=== PATIENT | female | born 1950 | race Caucasian/White ===

== ENCOUNTER → 2018-02-04 | Outpatient (CLI) | payer OTHER, MEDICARE ==
[~2018-02-04] MED LIST: DOCU-94 PO; HCTZ; IBUP-1449 PO; MULT-506 PO; NAPR1TAB9 PO; OMEG10007 PO; OPTIRAY 320 IV PRN; TURM500T
--- NOTE | 2018-02-04 13:16 | DIAGNOSTIC IMAGING REPORT ---
CT (CHEST) THORAX WITH CLINICAL HISTORY: 67 years-old Female presenting with ANAL LESION. TECHNIQUE: Multidetector CT imaging of the chest was performed after the administration of intravenous contrast. IV contrast: 120 mL of Optiray 320. A dose lowering technique was used consistent with the principles of ALARA (as low as reasonably achievable). COMPARISON: None. CT DOSE (mGy.cm): The estimated cumulative dose is 1027.85. FINDINGS: Concrete Finisher Apprentice topogram: Unremarkable. On soft tissue windows, nodular infiltration of the lateral inferior left breast, possibly asymmetric parenchyma (series 6 images 176 and 188). Normal thyroid. No axillary, supraclavicular, hilar, or mediastinal lymphadenopathy. Normal aorta. Normal heart size. No pericardial or pleural effusion. Subtle lesion in the medial spleen, possibly hamartoma or hemangioma. On lung windows, minimal dependent changes likely atelectasis. Mosaic attenuation may suggest small airways disease. No other focal nodule or infiltrate. Airways patent. On bone windows, degenerative changes of the spine. IMPRESSION: 1. No evidence of intrathoracic metastatic disease. No acute intrathoracic pathology. Electronically signed by: Herrera Lyle M.D. 02/04/2018 1:15 PM Dictated Date/Time: 02/04/2018 1:10 PM
--- NOTE | 2018-02-04 14:03 | DIAGNOSTIC IMAGING REPORT ---
ABDOMEN AND PELVIS CT WITH IV AND ORAL CONTRAST CT DOSE: 1027.85 mGy.cm HISTORY: Anal lesion. TECHNIQUE: Multiaxial CT images of the abdomen and pelvis were performed following the use of intravenous and oral contrast. A dose lowering technique was utilized adhering to the principles of ALARA. COMPARISON STUDY: None. FINDINGS: Please refer to the dedicated chest CT performed same day for further evaluation of the lung bases. No suspicious lytic or blastic osseous lesions. Focal thickening with soft tissue enhancement at the anus best seen on image 444. This measures 3.1 x 1.8 cm and likely corresponds to the patient's known history of an anal lesion. Mildly enlarged bilateral inguinal lymph nodes. Dominant right inguinal lymph node measures 1.6 cm and dominant left inguinal lymph node measures 1.5 cm. A few colonic diverticula. No evidence for diverticulitis. No bowel wall thickening or obstruction. Normal appendix. The uterus, ovaries, and bladder are unremarkable. No retroperitoneal lymphadenopathy. Small hypodense focus within the left hepatic lobe adjacent to the falciform ligament favors focal fat. No definite hepatic lesions. There are 2 subcentimeter hypodense lesions within the spleen with the largest measuring 5 mm. These are too small to characterize but statistically benign. The adrenal glands, gallbladder, and pancreas are unremarkable. Normal kidneys. No hydronephrosis. IMPRESSION: 1. Focal thickening with soft tissue enhancement at the anus. This likely corresponds the patient's known history of the anal lesion. 2. Mildly enlarged bilateral inguinal lymph nodes. This is nonspecific but metastatic disease would be the diagnosis of exclusion. Ultrasound-guided fine-needle aspiration and/or PET/CT should be considered for further evaluation. 3. Otherwise, no additional abnormalities within the abdomen or pelvis to suggest definitive metastatic disease. Electronically signed by: Carlos Alberto Maddox M.D. 02/04/2018 2:02 PM Dictated Date/Time: 02/04/2018 1:52 PM
== END | disposition home or self-care (01) ==
LOC: C.CTS 11:19
PROVIDERS: ATTEND Colon & Rectal Surgery
DX: K62.9 Disease of anus and rectum, unspecified (principal); R59.0 Localized enlarged lymph nodes

== ENCOUNTER → 2018-02-17 | Outpatient (CLI) | payer OTHER, MEDICARE ==
[~2018-02-17] MED LIST changes: +HYDR12.55 PO; +IBUP200C80 PO; +MELATAB2 PO; -OPTIRAY 320 IV PRN; +PSYL0.5217 PO
--- NOTE | 2018-02-17 10:42 | DIAGNOSTIC IMAGING REPORT ---
PET/CT HISTORY: COLORECTAL CANCER TECHNIQUE: PET/CT was performed from the base of the skull through the pelvis following the intravenous administration of 11.8 mCi of F18-FDG. Non-contrast CT imaging was performed over the same range without breath-hold for attenuation correction of PET images and anatomic correlation, but not for primary interpretation as it is not of standard diagnostic quality. CT DOSE: COMPARISON: Chest abdomen pelvis CT 02/04/2018. FINDINGS: HEAD AND NECK: There is no FDG-avid disease or significant lymphadenopathy in the imaged portions of the head and the neck. CHEST: There is no FDG-avid disease in the chest. There is no axillary, mediastinal, or hilar lymphadenopathy. There is no pleural or pericardial effusion. There is no air-space disease or suspicious lung nodule. ABDOMEN/PELVIS: Below the diaphragm, tracer is distributed physiologically in the gastrointestinal and genitourinary tracts. There is again noted focal thickening at the anus which demonstrates intense FDG uptake with an SUV max of 12. There are also 2 right and a single left mildly enlarged FDG avid lymph nodes. These demonstrate an SUV max of 5. Dominant right inguinal lymph node measures 1.6 x 1.4 cm.. MUSCULOSKELETAL: There is no FDG-avid or destructive bone lesion. IMPRESSION: 1. Focal thickening and intense FDG uptake within the anus. This likely corresponds to the patient's known history of an anal lesion. 2. Mildly enlarged bilateral inguinal lymph nodes also demonstrate FDG uptake and are therefore consistent with metastatic disease. Electronically signed by: Carlos Alberto Maddox M.D. 02/17/2018 10:41 AM Dictated Date/Time: 02/17/2018 10:26 AM
== END | disposition home or self-care (01) ==
LOC: C.PET 07:44
PROVIDERS: ATTEND Physician Assistant Medical
DX: C21.1 Malignant neoplasm of anal canal (principal)

== ENCOUNTER 2018-02-19 05:20 | Day surgery (SDC) | payer OTHER, MEDICARE ==
[2018-02-18 10:27] VITALS: BMI 32.0
[~2018-02-19] VITALS: Ht 147.3 cm; Wt 70.5 kg
[~2018-02-19 05:20] MED LIST changes: -HCTZ; -IBUP-1449 PO; +PATIENT'S HEIGHT AND/OR WEIGHT NEEDED SCH
[2018-02-19 05:42] VITALS: BP 174/85; PULSE 70; TEMP 36.6; O2SAT 96; Ht 147.3 cm; Wt 70.5 kg
[2018-02-19] MEDS ORDERED: LACTATED RINGER'S 1000ML 1,000 ML IV SCH (06:00)
[2018-02-19] MEDS ORDERED: CEFAZOLIN 2000MG IV PUSH 15 ML IV SCH (06:00)
[2018-02-19] MEDS ORDERED: FENTANYL CITRATE INJ 50 MCG/1 ML 2 ML VIAL IV PRN (06:30)
[2018-02-19] MEDS ORDERED: EpHEDrine SULFATE INJ 50 MG/ML AMP IV PRN (06:30)
[2018-02-19] MEDS ORDERED: PROMETHAZINE HCL INJ 12.5 MG in SODIUM CHLORIDE 0.9% 50ML 50 ML IV PRN (06:30)
[2018-02-19] MEDS ORDERED: ONDANSETRON INJ 2 MG/ML 2 ML VIAL IV PRN ×2 (06:30→08:00)
[2018-02-19] MEDS ORDERED: PHENYLEPHRINE 100MCG/ML 5ML SYR IV PRN (06:30)
[2018-02-19] MEDS ORDERED: ATROPINE SULFATE 0.1 MG/ML 5ML SYR IV PRN (06:30)
[2018-02-19] MEDS ORDERED: HEPARIN SOD (PORCINE) 5000 UNIT/ML 1 ML VIAL ONE (06:37)
[2018-02-19] MEDS ORDERED: BUPIVACAINE 0.5 % 5 MG/1 ML PF 10ML VIAL ONE (06:38)
[2018-02-19] MEDS ORDERED: LIDOCAINE HCL 1% 20 ML VIAL ONE (06:38)
[2018-02-19] MEDS ORDERED: LIDOCAINE/EPINEPHRINE 1% 20 ML VIAL ONE (06:43)
[2018-02-19] MEDS ORDERED: SCOPOLAMINE 1.5 MG TDSY TD ONE (06:49)
--- NOTE | 2018-02-19 06:55 | History & Physical Bridge Note ---
H&P Re-Evaluation Bridge Note: I have examined the patient, reviewed the History & Physical and in the interval since the performance of the History & Physical I have noted the following changes of clinical significance: No changes noted
[2018-02-19] MEDS ORDERED: MIDAZOLAM HCL 1 MG/ML 2ML VIAL ONE ×2 (07:09→07:13)
[2018-02-19] MEDS ORDERED: FENTANYL CITRATE INJ 50 MCG/1 ML 2 ML VIAL ONE (07:12)
[2018-02-19] MEDS ORDERED: PROPOFOL IV EMULSION 10 MG/ML 20 ML VIAL ONE (07:17)
[2018-02-19] MEDS ORDERED: DEXAMETHASONE SOD INJ 4 MG/ML VIAL ONE (07:27)
[2018-02-19] MEDS ORDERED: KETOROLAC TROMETHAMINE 30 MG/ML VIAL ONE (07:28)
[2018-02-19] MEDS ORDERED: ONDANSETRON INJ 2 MG/ML 2 ML VIAL ONE (07:28)
[2018-02-19] MEDS ORDERED: SODIUM CHLORIDE 0.9% 1000ML 1,000 ML IV SCH (07:59)
--- NOTE | 2018-02-19 07:59 | [facility] Post Operative Brief Note ---
Immediate Operative Summary Operative Date Feb 19, 2018. Pre-Operative Diagnosis Anal Cancer Post-Operative Diagnosis Anal Cancer Procedure(s) Performed Insertion of Mediport with Fluoroscopy Surgeon Dr Macias Car Sealer Surgeon(s) none Estimated Blood Loss 4CC Findings Consistent with Post-Op Diagnosis Specimens None per surgeon Drains None Anesthesia Type MAC Complication(s) none Disposition Accompanied Pt To Recover: no Disposition: Recovery Room / PACU
[2018-02-19] MEDS ORDERED: MoRPHine SULFATE 4 MG/ML 1 ML CARP\\VIAL IV PRN (08:00)
[2018-02-19] MEDS ORDERED: MoRPHine SULFATE 2 MG/ML CARP IV PRN (08:00)
[2018-02-19] MEDS ORDERED: KETOROLAC TROMETHAMINE 30 MG/ML VIAL IV. PRN (08:00)
[2018-02-19] MEDS ORDERED: OXYCODONE/ACETAMINOPHEN 5-325 TAB PO PRN ×2 (08:00)
--- NOTE | 2018-02-19 08:06 | Discharge Instructions ---
Discharge Instructions Date of Service Feb 19, 2018. Admission Reason for Admission: Anal Cancer Discharge Discharge Diagnosis / Problem: anal cancer Discharge Goals Goal(s): Therapeutic intervention Activity Recommendations Activity Limitations: as noted below Lifting Limitations: gradually increase as tolerated Exercise/Sports Limitations: gradually increase as tolerated Shower/Bathe: tomorrow (do not soak or scrub wound for 2 weeks) Driving or Machine Use: resume 1 day after discharge . Instructions / Follow-Up Instructions / Follow-Up follow up as schedule in general surgery clinic. call with questions or concerns. Current Hospital Diet Patient's current hospital diet: Discharge Diet Recommended Diet: Regular Diet Procedures Procedures Performed: Insertion of Mediport with Fluoroscopy Pending Studies Studies pending at discharge: no Medical Emergencies . Who to Call and When: Medical Emergencies: If at any time you feel your situation is an emergency, please call 911 immediately. . Non-Emergent Contact Non-Emergency issues call your: Surgeon Call Non-Emergent contact if: temperature is above 101.5, wound has increased drainage, wound has increased redness, you have any medication questions . "Provider Documentation" section prepared by Malik Macias. . [place] Drug Monitoring Program Search Results: patient reviewed within database, no issues identified
--- NOTE | 2018-02-19 08:08 | [facility] Operative Report ---
Operative Report Operative Date Feb 19, 2018. Pre-Operative Diagnosis Anal Cancer Post-Operative Diagnosis Same Procedure(s) Performed Left internal jugular port placement using real-time ultrasound guidance and fluoroscopy Surgeon Dr Macias Associate Professor Of Kinesiology Surgeon(s) none Estimated Blood Loss 4CC Findings Left internal jugular vein accessed using real-time ultrasound guidance. Port placed using fluoroscopy. Draws and flushes easily at conclusion of case. Specimens None per surgeon Drains None Anesthesia MAC/local Complication(s) None Disposition Recovery Room / PACU Indications 67-year-old female with recent diagnosis of anal cancer requiring long-term IV access for chemotherapy. Plan for port placement. The risks of the procedure were discussed, all questions were answered, and the patient agreed to proceed with surgery as planned. Description of Procedure The patient was properly identified, consented, and taken to the operating room where she was placed in the supine position with both arms tucked and a shoulder roll placed vertically. Monitored anesthesia care was induced. SCDs and a safety belt were placed. Preoperative antibiotics were administered. The patient's chest and neck was prepped and draped in the standard sterile fashion. Surgical timeout was performed and all parties were in agreement that this was the correct patient and procedure to be performed and we continued as planned. The patient was placed in Trendelenburg position. Local anesthetic was injected along the skin incision. Using real-time ultrasound guidance the left internal jugular vein was accessed using the access needle. The wire was placed and the needle was removed. Fluoroscopy confirmed placement into the internal jugular vein extending into the superior vena cava. A transverse skin incision was made in the left chest and a pocket was created for the port. A subcutaneous tunnel was created and the catheter was brought from the neck incision into the chest incision. The dilator and peel-away sheath were inserted over the wire. The catheter was then inserted through the peel-away sheath and fluoroscopy confirmed placement into the superior vena cava. The catheter was cut and attached to the port. The port was secured into place with 3-0 Prolene sutures. A final x-ray revealed good placement of the port. The wound was irrigated and hemostasis was confirmed. The skin was closed with interrupted 3-0 Vicryl deep dermal sutures, followed by 4-0 Monocryl running subcuticular suture. Dermabond was placed over the wound. The port was accessed and chari blood easily and flushed easily. It was flushed with heparinized saline. The patient taken to the PACU where she recovered without apparent incident. All sponge, instrument and needle counts were correct at the conclusion of the procedure. The patient tolerated the procedure well. I attest to the content of the Intraoperative Record and any orders documented therein. Any exceptions are noted below.
--- NOTE | 2018-02-19 08:09 | [facility] Operative Report ---
Operative Report Operative Date Feb 19, 2018. Pre-Operative Diagnosis Anal Cancer Surgeon Dr Macias Findings Left internal jugular vein was accessed using real-time ultrasound guidance which was interpreted by the surgeon. Fluoroscopy was used and interpreted by the surgeon for placement of the port. A total of 26 seconds of fluoroscopy time was utilized. I attest to the content of the Intraoperative Record and any orders documented therein. Any exceptions are noted below.
--- NOTE | 2018-02-19 08:28 | DIAGNOSTIC IMAGING REPORT ---
CHEST ONE VIEW PORTABLE HISTORY: 67 years-old Female s/p port placement status post placement of a left internal jugular Oiyeen-g-Ucqi catheter. COMPARISON: PET CT 02/17/2018 TECHNIQUE: Portable AP view of the chest FINDINGS: Cardiac silhouette is enlarged. Mild right hemidiaphragm elevation. No pneumothorax, pleural effusion or overt pulmonary edema. Status post placement of a left internal jugular Fvcvxo-x-Kulm catheter with distal tip terminating in the region of the mid SVC. Mild convex right curvature about the midthoracic spine. Degenerative changes of the shoulders and spine. IMPRESSION: 1. Status post placement of a left internal jugular Dfbkfg-b-Hion catheter with distal tip terminating in the expected region of the mid SVC. No postprocedural pneumothorax. 2. Cardiomegaly. The above report was generated using voice recognition software. It may contain grammatical, syntax or spelling errors. Electronically signed by: Duane Partida M.D. 02/19/2018 8:27 AM Dictated Date/Time: 02/19/2018 8:22 AM
[2018-02-19 08:35] VITALS: BP 144/78; PULSE 58; TEMP 36.6; O2SAT 96
--- NOTE | 2018-02-19 08:54 | Anesthesiology Progress Note ---
Anesthesia Post Op Note Date & Time Feb 19, 2018 at 08:54 Vital Signs Pain Intensity: 0 Vital Signs Past 12 Hours Date Time Temp Pulse Resp B/P (MAP) Pulse Ox O2 Delivery O2 Flow Rate FiO2 02/19/18 08:35 36.6 58 18 144/78 96 Room Air 02/19/18 08:20 57 16 134/81 98 Room Air 02/19/18 08:10 54 16 125/78 95 Room Air 02/19/18 08:02 36.0 61 16 132/89 95 Room Air 02/19/18 05:42 36.6 70 18 174/85 (114) 96 Room Air Notes Mental Status: alert / awake / arousable, participated in evaluation Pt Amnestic to Procedure: Yes Nausea / Vomiting: adequately controlled Pain: adequately controlled Airway Patency, RR, SpO2: stable & adequate BP & HR: stable & adequate Hydration State: stable & adequate Anesthetic Complications: no major complications apparent
[2018-02-19 08:55] VITALS: BP 153/90; PULSE 59; TEMP 36.6; O2SAT 98
== END 2018-02-19 09:10 | disposition home or self-care (01) ==
LOC: C.ACU 05:20
PROVIDERS: ATTEND Surgery
DX: C21.0 Malignant neoplasm of anus, unspecified (principal); I10 Essential (primary) hypertension; M19.90 Unspecified osteoarthritis, unspecified site

== ENCOUNTER 2019-10-19 07:38 | Inpatient (IN) ==
--- NOTE | 2019-09-30 13:45 | PAT Medication Instructions ---
Medication Instructions Date of Service September 30, 2019 Home Medications lisinopril 10 mg tablet 15 mg PO QDL multivitamin 1 tab PO QDL DO NOT take the morning of surgery lisinopril 10 mg tablet 15 mg PO QDL multivitamin 1 tab PO QDL Other Notes If you have any questions please call us at [phone] or [phone] or [phone] or [phone]
--- NOTE | 2019-10-04 08:55 | Anesthesiology Consultation ---
Date of Service October 04, 2019 Assessment & Plan (1) Encounter for pre-operative examination: Chart Review Chart Review: Acceptable Risk for Surgery and Patient seen in Pre Admission Testing Teaching & Discussion Pre-Anesthesia Teaching/Discussion Notes: Instructed NPO after midnight before surgery,except medications with 15 cc of water. Medication instructions provided according to the PAT guidelines. History Surgery Operation Date: 10/19/19 14:45 Proposed Procedures p L3-L4 Transforaminal Lumbar Interbody Fusion, Spinal Cord Monitoring - Garrett Gaming DO Height/Weight Height: 4 ft 10 in Weight: 74.3 kg Allergies Allergy/AdvReac Type Severity Reaction Status Date / Time No Known Allergies Allergy Verified 09/28/19 15:35 Medications Home Medications Medication Instructions Recorded Confirmed Last Taken lisinopril 10 mg tablet 15 mg PO QDL tab 11/30/18 09/28/19 Unknown multivitamin 1 tab PO QDL 09/28/19 09/28/19 Unknown Past Medical History Medical History Arthritis of spine Bowel habit changes URGENCY - R/T TO CHEMO AND RADIATION Dry mouth RESIDUAL EFFECT FROM CHEMO AND RADIATION History of anal cancer HAD CHEMO AND RADIATION - 2018 TREATED [facility]; Hypertension Numbness and tingling of right leg R/T BACK ISSUES Ruptured lumbar disc Exercise / Class Metabolic Activity III < 4 Walking/Shop/Light housework (no SOB or chest pain with flat surface- uses wheeled walker ) Past Family History Family History Mother Family history of diabetes mellitus Sister Family history of diabetes mellitus Past Surgical History Surgical History History of open reduction and internal fixation (ORIF) procedure RIGHT ELBOW History of vascular access device MEDIPORT IN PLACE Hx of knee surgery X4; ONE SURGERY FOR PATELLA REMOVAL Past Anesthesia History No Hx of Anesthesia Complications and No Family Hx of Anesthesia Complications History of PONV No Hx of PONV and No Hx of Motion Sickness Social History Smoking Status: Never smoker Do You Dip or Chew Tobacco: No Hx Alcohol Use: Yes Alcohol type: wine alcohol intake frequency: a few times a month Hx Substance Use: No Review of Systems Patient denies chest pain, shortness of breath, dyspnea on exertion, reflux, cough, wheezing, palpitations. No hx of seizures, stroke, MD, apnea/snoring. No hx of blood clots or blood transfusions Physical Exam Vital Signs VITALS BP 125/86 P 80 TEMP 98.1 SP02 96% RESP 16 Constitutional + obese; no acute distress ENMT Mouth: no TMJ clicking Thyromental Distance: < 3.5 Finger Breadths (3.0) Mallampati Class: III Caps and crowns - molars Neck + thick neck (mild ); neck extension not limited Respiratory normal respiratory effort; no respiratory distress Auscultation: lungs clear to auscultation bilaterally; no wheezes Cardiovascular Rate/Rhythm: regular rate and regular rhythm Heart Sounds: no murmur Vessels: no carotid bruit Extremities: no edema Musculoskeletal Spine: no pain with cervical ROM (mild cracking ) Neurologic moves all extremities Psychiatric Orientation: alert Testing Laboratory Results 10/04/19 09:03 10/04/19 09:03 PT 10.5 Seconds (9.0-12.0) 10/04/19 09:03 INR 1.0 (0.9-1.1) 10/04/19 09:03 APTT 26.4 Seconds (21.0-31.0) 10/04/19 09:03 Urine Color Yellow 10/04/19 09:03 Urine Appearance Clear (Clear) 10/04/19 09:03 Urine pH 5.0 (4.5-7.5) 10/04/19 09:03 Ur Specific [place] 1.024 (1.000-1.030) 10/04/19 09:03 Urine Protein Trace (Negative) H 10/04/19 09:03 Urine Glucose (UA) Negative (Negative) 10/04/19 09:03 Urine Ketones Negative (Negative) 10/04/19 09:03 Urine Nitrite Negative (Negative) 10/04/19 09:03 Ur Leukocyte Esterase 1+ (Negative) H 10/04/19 09:03 Urine WBC (Auto) 10-30 /hpf (0-5) H 10/04/19 09:03 Urine RBC (Auto) 0-4 /hpf (0-4) 10/04/19 09:03 U Hyaline Cast (Auto) 1-5 /lpf (0-5) 10/04/19 09:03 U Epithel Cells (Auto) 10-20 /lpf (0-5) H 10/04/19 09:03 Urine Bacteria (Auto) Negative (Negative) 10/04/19 09:03 Blood Type O Positive 10/04/19 09:03 Antibody Screen NEGATIVE 10/04/19 09:03 Chronic mild leukopenia- stable Electrocardiogram Date: 10/04/19 Findings: + NSR @ (84) Other Testing Chest CT 07/04/19= No enlarged axillary, mediastinal or hilar lymph nodes are present. A left internal jugular Hznrbw-i-Izjp is in place. The heart is mildly enlarged. There is no pericardial effusion. No supraclavicular lymphadenopathy is identified. There is no central pulmonary embolus. No pneumothorax or pleural effusion is noted. 4mm nodules to bilateral lower lobes unchanged since 2018- likely benign.
[2019-10-04 09:57] LABS: Basophils # (auto) 0.02 K/uL (0-0.2); Basophils % (auto) 0.5 %; Eosinophils # (auto) 0.12 K/uL (0-0.5); Eosinophils % (auto) 2.9 %; Hematocrit (blood only) 38.4 % (37-47); Hemoglobin 12.6 g/dL (12.0-16.0); Immature Granulocytes # (auto) 0.01 K/uL (0.00-0.02); Immature Granulocytes % (auto) 0.2 %; Lymphocytes % (auto) 19.1 %; Mean Corpuscular Hemoglobin 32.5 pg (25-34); Mean Corpuscular Hgb Conc 32.8 g/dL (32-36); Mean Platelet Volume 9.7 fL (7.4-10.4); Monocytes # (auto) 0.44 K/uL (0.11-0.59); Monocytes % (auto) 10.5 %; Neutrophils % (auto) 66.8 %; Platelet Count 347 K/uL (130-400); RDW Coefficient of Variation 13.5 % (11.5-14.5); RDW Standard Deviation 48.7 fL (36.4-46.3); Red Blood Count 3.88 M/uL (4.2-5.4); White Blood Count 4.19 K/uL (4.8-10.8)
[2019-10-04 10:04] LABS: BUN Creatinine Ratio 16.9 (10-20); Est GFR (African American) 54.2; Est GFR (Non-African American) 46.7; Potassium 4.8 mmol/L (3.5-5.1)
[2019-10-04 10:14] LABS: Partial Thromboplastin Ratio 0.9; Partial Thromboplastin Time 26.4 Seconds (21.0-31.0); Prothrombin Time 10.5 Seconds (9.0-12.0)
[2019-10-04 10:32] LABS: Appearance Urine Clear (Clear); Bacteria Urine Automated Negative (Negative); Bilirubin Urine Negative (Negative); Blood Urine Negative (Negative); Color Urine Yellow; Glucose Urine UA Negative (Negative); Ketones Urine Negative (Negative); Leukocyte Esterase Urine 1+ (Negative); Nitrite Urine Negative (Negative); Protein Urine Trace (Negative); RBC Urine Automated 0-4 /hpf (0-4); Specific Gravity Urine 1.024 (1.000-1.030); Urobilinogen Urine Negative (Negative)
--- NOTE | 2019-10-04 22:38 | Electrocardiogram Report ---
Test Reason : Blood Pressure : / mmHG Vent. Rate : 084 BPM Atrial Rate : 084 BPM P-R Int : 120 ms QRS Dur : 076 ms QT Int : 388 ms P-R-T Axes : 023 021 060 degrees QTc Int : 458 ms Normal sinus rhythm Normal ECG No previous ECGs available Confirmed by Chidi Aviles ([id number]) on 10/04/2019 10:38:26 PM Referred By: Garrett Gaming Confirmed By:Chidi Aviles
--- NOTE | 2019-10-18 12:20 | History & Physical Report ---
Date of Service October 18, 2019 Assessment & Plan (1) Lumbar disc herniation with radiculopathy: This time the patient has progressive neuro deficit and leg weakness. Subsequently recommending urgent decompression and fusion so she does not have permanent nerve damage, leg weakness and dependence on assistive device to ambulate. This would require a lumbar decompression and fusion at L3-4 in order to adequately decompress the exiting L 3 nerve root on the right it would require complete facetectomy and subsequent stabilization with a fusion. Present on Admission?: Yes History of Present Illness Chief Complaint: Back and right leg pain and weakness. Primary Care Provider: WILLIAM Wynne This is a 68-year-old female that began experiencing symptoms in the fall of last year. She was originally managed with oral prednisone and had undergone a series of epidural injections. Unfortunately her symptoms returned in December and have been progressive since. Described as involving the right buttocks and down the right anterior thigh to the knee. She did have one transforaminal injection was provided 1 to 2 days of relief. She is only comfortable sitting has to for change positions frequently. Standing and walking has become severely limited secondary to pain and progressive weakness involving the right quadricep. She does use a walker secondary to leg weakness and falls. Allergies Allergy/AdvReac Type Severity Reaction Status Date / Time No Known Allergies Allergy Verified 09/28/19 15:35 Home Medications Home Medications Medication Instructions Recorded Confirmed Type lisinopril 10 mg tablet 15 mg PO QDL tab 11/30/18 09/28/19 History multivitamin 1 tab PO QDL 09/28/19 09/28/19 History Past Med/Surg History Medical History Arthritis of spine Bowel habit changes URGENCY - R/T TO CHEMO AND RADIATION Dry mouth RESIDUAL EFFECT FROM CHEMO AND RADIATION History of anal cancer HAD CHEMO AND RADIATION - 2018 TREATED [facility]; Hypertension Numbness and tingling of right leg R/T BACK ISSUES Ruptured lumbar disc Surgical History History of open reduction and internal fixation (ORIF) procedure RIGHT ELBOW History of vascular access device MEDIPORT IN PLACE Hx of knee surgery X4; ONE SURGERY FOR PATELLA REMOVAL Family History Mother Family history of diabetes mellitus Sister Family history of diabetes mellitus Social History Preferred Language: [place] Communication Ability: Effective Beliefs That Will Affect Care: None Current Living Situation: Alone Feels Safe at Home: Yes Safety Concerns: Feels Safe At This Time Smoking Status: Never smoker Do You Dip or Chew Tobacco: No ; Second Hand Exposure: No ; Hx Alcohol Use: Yes Alcohol type: wine Hx Substance Use: No Physical Exam Physical Exam: Patient is in obvious distress. She walks with assistance and an antalgic gait. She is unable to heel and toe walk. She exhibits 3+/5 right hip flexor and right quadricep. Plantar flexion dorsiflexion are intact to bench exam bilaterally. She has marked sensory deficits to the right lower extremity compared to the left. Results & Data Diagnostic Findings MRI of lumbar spine performed at [facility] dated 08/22/19 demonstrates significant multilevel spondylosis with evidence of disc herniation and spinal stenosis at L5 3 4. There is severe right-sided neuroforaminal stenosis with marked encroachment of the exiting L3 nerve root. In fact it is unable to be visualized secondary to the disc herniation. There is also compression of the traversing 4 root on the right.
[~2019-10-19 07:38] MED LIST changes: +ACETAMINOPHEN 500 MG TAB PO SCH; +CEFAZOLIN 1000MG 1,000 MG/7.5 ML SYR IV SCH; +CeleBREX 200 MG CAP PO SCH; -DOCU-94 PO; +GABAPENTIN 300 MG CAP PO SCH; -HYDR12.55 PO; -IBUP200C80 PO; +LR 15ML/HR IV SCH; -MELATAB2 PO; -MULT-506 PO; -NAPR1TAB9 PO; -OMEG10007 PO; -PATIENT'S HEIGHT AND/OR WEIGHT NEEDED SCH; -PSYL0.5217 PO; -TURM500T
[2019-10-19] MEDS ORDERED: LIDOCAINE HCL 2% 2 ML VIAL/AMP(20MG/ML) INFIL ONE (08:30)
[2019-10-19] MEDS ORDERED: SUCCINYLCHOLINE 100MG/5ML SYR ONE (08:30)
[2019-10-19] MEDS ORDERED: DEXAMETHASONE SOD INJ 4 MG/ML VIAL ONE (08:30)
[2019-10-19] MEDS ORDERED: ROCURONIUM BROMIDE 10 MG/ML 5 ML VIAL ONE (08:30)
[2019-10-19] MEDS ORDERED: PROPOFOL IV EMULSION 10 MG/ML 20 ML VIAL IV ONE (08:30)
[2019-10-19] MEDS ORDERED: ONDANSETRON INJ 2 MG/ML 2 ML VIAL ONE (08:30)
[2019-10-19] MEDS ORDERED: MIDAZOLAM HCL 1 MG/ML 2ML VIAL ONE (08:31)
[2019-10-19] MEDS ORDERED: fentaNYL citrate 100 MCG/2 ML VIAL ONE (08:31)
--- NOTE | 2019-10-19 08:53 | History & Physical Bridge Note ---
Date of Service October 19, 2019 History & Physical Bridge Note I have examined the patient, reviewed the History & Physical and in the interval since the performance of the History & Physical I have noted the following changes of clinical significance: no changes noted
[2019-10-19] MEDS ORDERED: BUPIVACAINE/EPINEPHRINE 0.5% MPF 1:200,000 10 ML VIAL ONE (09:06)
[2019-10-19] MEDS ORDERED: BACITRACIN INJ 50,000 UNIT VIAL ONE (09:06)
[2019-10-19] MEDS ORDERED: fentaNYL citrate 100 MCG/2 ML VIAL IV PRN (09:07)
[2019-10-19] MEDS ORDERED: ePHEDrine sulfate 50 MG/ML AMP IV PRN (09:07)
[2019-10-19] MEDS ORDERED: ATROPINE SULFATE 0.1 MG/ML 10ML SYR IV PRN (09:07)
[2019-10-19] MEDS ORDERED: MEPERIDINE HCL 25 MG/ML CARP/VIAL IV PRN (09:07)
[2019-10-19] MEDS ORDERED: LABETALOL HCL IV 5 MG/ML 20ML IV PRN (09:07)
[2019-10-19] MEDS ORDERED: ONDANSETRON INJ 2 MG/ML 2 ML VIAL IV PRN ×2 (09:07→12:19)
[2019-10-19] MEDS ORDERED: HYDROmorphone INJ 1 MG/ML SYRINGE IV PRN ×2 (09:07→12:19)
[2019-10-19] MEDS ORDERED: PHENYLEPHRINE 100MCG/ML 5ML SYR IV PRN (09:07)
[2019-10-19] MEDS ORDERED: PHENYLEPHRINE 100MCG/ML 5ML SYR ONE ×2 (09:52→10:48)
[2019-10-19] MEDS ORDERED: FLOSEAL HEMOSTATIC MATRIX 10ML TOP ONE (10:59)
--- NOTE | 2019-10-19 11:04 | Operative Report ---
Post Operative Report Pre & Post Diagnosis Operation Date: 10/19/19 09:05 Pre-Op Diagnosis: Spinal Stenosis, Lumbar Region without Neurogenic Claudication Post-Op Diagnosis: Spinal Stenosis, Lumbar Region without Neurogenic Claudication I identified the patient and participated in the time-out.: Yes Procedure Operation Date: 10/19/19 09:05 Actual Procedures #1 lumbar decompression with bilateral medial facetectomies and foraminotomies L3-4. #2 posterior spinal fusion L3-4. #3 placement posterior instrumentation L3-4 per #4 interbody fusion L3-4 per #5 placement peek cage 11 x 22 mm at L3-4. #6 placement locally harvested morselized autograft in the posterior lateral gutters. #7 placement infuse collagen sponge, master graft in the posterior lateral gutters and ostial amp and interbody space. Surgeon Garrett Gaming, Top Lift Trimmer Karen Vinson Estimated Blood Loss 50 Findings See Below Patient is forefoot 10 inches tall weighing over 74 kg with a BMI in excess of 34. Patient's body habitus did add significant technical difficulty requiring her deepest retractors and longest instruments in order to perform her procedure. This added at least 25% increase to the operative time. Specimens None Indications This is a 68-year-old female who presents with the above mentioned diagnosis. She was noting marked deficits in her right quadricep strength and inability to ambulate subsequently we recommended urgent decompression fusion. Description of Procedure Patient was met with identified informed consent obtained. Patient was then taken to the operative suite underwent intubation placed in a prone position the Bennie table on top of the Zen frame. All bony prominences well-padded eyes inspected to ensure no external pressure placed upon the. This point the lumbar spine was prepped and draped in normal sterile fashion. Sharp dissection with the assistance of Bovie cautery performed down to and exposing the lamina and transverse processes of L3 and L4 bilaterally. From a caudal cephalad fashion complete laminectomy of L3 was performed including medial facetectomies and foraminotomies as well as noting a massive fragment of disc material occupying the right L3-4 neural foramen. This was removed in its entirety decompressing the L3 nerve root. Pedicle screws were then placed in L3 and L4 bilaterally with assistance of fluoroscopy the process grace placed. By way of a trans- foramen approach on the right complete discectomy was performed endplates curetted to subcortical and bone and a 11 x 22 mm peek cage filled with osteo- bone graft tapped in position. The rods were then locked in final position. Transverse processes of L3 and L4 were burred to subcortical bleeding bone. Infuse collagen sponge master graft local autograft placed in the posterior lateral gutters. 15 round CASS drain inserted. Incision was then closed with 1 Vicryl the fascia 2-0 Vicryl subcutaneously and 4 Monocryl for final skin closure. Steri-Strip sterile dressings placed. Patient will continue PACU stable addition. Please note Karen Vinson present at the entire procedure involved the patient positioning complex portions of the surgery and final skin closure. Lastly spinal cord monitoring was utilized that the procedure and no changes noted. I attest to the content of the Intraoperative Record and any orders documented therein. Any exceptions are noted below.
--- NOTE | 2019-10-19 11:10 | Fluoroscopy Report ---
FL lumbar spine 2-3V CLINICAL HISTORY: L3-4 INTERBODY/FUSION COMPARISON STUDY: None FLUOROSCOPY TIME: 16 seconds. NUMBER OF FLUOROSCOPIC IMAGES: 2 FINDINGS: 2 intraoperative fluoroscopic spot images reveal postsurgical changes of an L3-4 discectomy and interbody fusion. There is posterior pedicle screw fixation. There is a small linear radiopaque foreign body within the right-sided soft tissues, possibly posterior.. IMPRESSION: 1. Postsurgical changes of an L3-4 spinal decompression and fusion 2. Small nondescript linear foreign body projected over the right-sided soft tissues ACT 112: Negative or not required by law. Electronically signed by: Ihsan Caraballo M.D. 10/19/2019 11:09 AM
--- NOTE | 2019-10-19 11:45 | Anesthesiology Progress Note ---
Date of Service October 19, 2019 Anesthesia Post Procedure Vital Signs Vital Signs: Temp Pulse Pulse Resp BP BP Pulse Ox 10/19/19 11:40 85 15 114/77 96 10/19/19 11:30 92 H 17 101/64 95 10/19/19 11:20 97 H 21 109/68 96 10/19/19 11:13 36.4 C L 101 H 16 123/54 L 98 10/19/19 08:21 36.6 C 99 H 18 137/93 96 Pain Intensity Lower Medial Back: Pain Intensity: 0 Transfer of Care Handoff Completed per policy Notes Mental Status: alert / awake / arousable Patient Amnestic to Procedure: Yes Nausea / Vomiting: adequately controlled Pain: adequately controlled Airway Patency, RR, SpO2: stable & adequate BP & HR: stable & adequate Hydration State: stable & adequate Anesthetic Complications: no major complications apparent and Pt Satisfied with anesthetic care
[2019-10-19] MEDS ORDERED: lisinopriL 5 MG TAB PO SCH (12:19)
[2019-10-19] MEDS ORDERED: ALUMINUM/MAGNESIUM SUSP 30 ML UDC PO PRN (12:19)
[2019-10-19] MEDS ORDERED: LORazepam 0.5 MG TAB PO PRN (12:19)
[2019-10-19] MEDS ORDERED: ACETAMINOPHEN 500 MG TAB PO PRN (12:19)
[2019-10-19] MEDS ORDERED: METOCLOPRAMIDE HCL INJ 5 MG/ML 2 ML VIAL IV PRN (12:19)
[2019-10-19] MEDS ORDERED: LORazepam 0.5 MG/1 ML VIAL IV PRN (12:19)
[2019-10-19] MEDS ORDERED: NALOXONE HCL 0.4 MG/1 ML VIAL/CARP IV PRN (12:19)
[2019-10-19] MEDS ORDERED: HYDROmorphone INJ 0.5 MG/0.5 ML SYR IV PRN (12:19)
[2019-10-19] MEDS ORDERED: PROMETHAZINE HCL 12.5 MG in SODIUM CHLORIDE 0.9% 50 ML IV PRN (12:19)
[2019-10-19] MEDS ORDERED: SOD PHOSPHATE/SOD BIPHOSPHATE ENEMA 132 ML BTL PR PRN (12:19)
[2019-10-19] MEDS ORDERED: DO NOT ADMINISTER FLU VACCINE PRN (12:19)
[2019-10-19] MEDS ORDERED: DO NOT ADMINISTER PNEUMOCOCCAL VACCINE PRN (12:19)
[2019-10-19] MEDS ORDERED: ONDANSETRON 4 MG OD TAB PO PRN (12:19)
[2019-10-19] MEDS ORDERED: MAGNESIUM HYDROXIDE SUSP 30 ML UDC PO PRN (12:19)
[2019-10-19] MEDS ORDERED: ACETAMINOPHEN 1,000 MG/100 ML VIAL IV PRN (12:19)
[2019-10-19] MEDS ORDERED: FAMOTIDINE 20 MG TAB PO PRN (12:19)
[2019-10-19] MEDS ORDERED: bisacodyL 10 MG SUPP PR PRN (12:19)
[2019-10-19] MEDS: SODIUM CHLORIDE 0.9% 1000ML 1,000 ML IV SCH ×2 (13:28→23:45)
[2019-10-19] MEDS: MULTIVITAMIN TAB PO SCH (13:28)
[2019-10-19] MEDS: OXYCODONE HCL IR 5 MG TAB (IMMEDIATE RELEASE) PO PRN ×2 (13:34→20:48)
--- NOTE | 2019-10-19 18:01 | Hospitalist Progress Note ---
Date of Service October 19, 2019 Assessment & Plan (1) Hypertension: BP quite good. follow. f/u CBC, BMP in AM - if stable can resume lisinopril tomorrow as ordered; if rise in Cr or significant drop in Hgb then will need to hold and follow. (2) DVT prophylaxis: per orthopedics - currently mechanical. Admission and Anticipated Discharge Date Admission Date: October 19, 2019 Subjective feeling good post op - less pain than expected. no other complaints. notes that BP usually not hard to control - notes that it was a little higher than it should be before meds. does not note any other chronic medical problems. pleased with care thus far. Review of Systems Review of Systems: All systems reviewed & are unremarkable except as noted in HPI & below Physical Exam Physical Exam: gen aao pleasant nad heent nc at mmm breathing unlabored no accessory muscles good effort skin no rashes no pallor or icterus Results & Data Results & Data ([facility]) Vital Signs (Past 12 Hours) Vital Signs Temp Pulse Pulse Pulse Resp BP BP 10/19/19 15:02 97.3 F L 77 16 103/69 10/19/19 14:04 87 18 106/66 10/19/19 12:59 86 18 110/71 10/19/19 12:29 92 H 18 117/76 10/19/19 11:50 97.3 F L 83 20 101/62 10/19/19 11:40 85 15 114/77 10/19/19 11:30 92 H 17 101/64 10/19/19 11:20 97 H 21 109/68 10/19/19 11:13 97.5 F L 101 H 16 123/54 L 10/19/19 08:21 97.9 F 99 H 18 137/93 Pulse Ox 10/19/19 15:02 92 10/19/19 14:04 97 10/19/19 12:59 99 10/19/19 12:29 97 10/19/19 11:50 97 10/19/19 11:40 96 10/19/19 11:30 95 10/19/19 11:20 96 10/19/19 11:13 98 10/19/19 08:21 96 PG Care Time/CCT Total # of Minutes Spent Total Time Spent with Patient: Total time spent is greater than 50% in coordination of care (as documented) at patient's floor/unit and/or counseling patient: Coding Level of Care Code 28101 Subseq Hosp Care Lvl 2 Diagnoses Hypertension I10 DVT prophylaxis Z29.9
[2019-10-19] MEDS: CEFAZOLIN 2000MG 2,000 MG/15 ML SYR IV SCH (18:12)
[2019-10-19] MEDS: DOCUSATE SODIUM/SENNA 50/8.6MG TAB PO SCH (20:48)
[2019-10-20] MEDS: TRAMADOL HCL 50 MG TABLET PO PRN ×2 (00:28→16:50)
[2019-10-20] MEDS: CEFAZOLIN 2000MG 2,000 MG/15 ML SYR IV SCH (02:21)
[2019-10-20] MEDS: POLYETHYLENE (MIRALAX) 17 GM PACK PO SCH ×3 (05:28→18:10)
[2019-10-20 06:05] LABS: Hemoglobin 9.9 g/dL (12.0-16.0); Immature Granulocytes # (auto) 0.02 K/uL (0.00-0.02); Immature Granulocytes % (auto) 0.2 %; Lymphocytes # (auto) 0.67 K/uL (1.2-3.4); Lymphocytes % (auto) 5.4 %; Mean Corpuscular Hemoglobin 31.4 pg (25-34); Mean Corpuscular Hgb Conc 31.9 g/dL (32-36); Mean Corpuscular Volume 98.4 fL (80-100); Mean Platelet Volume 9.3 fL (7.4-10.4); Monocytes # (auto) 0.82 K/uL (0.11-0.59); Monocytes % (auto) 6.6 %; Neutrophils # (auto) 10.98 K/uL (1.4-6.5); Neutrophils % (auto) 87.8 %; Platelet Count 340 K/uL (130-400); RDW Coefficient of Variation 13.7 % (11.5-14.5); RDW Standard Deviation 49.1 fL (36.4-46.3); Red Blood Count 3.15 M/uL (4.2-5.4); White Blood Count 12.49 K/uL (4.8-10.8)
[2019-10-20 06:50] LABS: BUN Creatinine Ratio 15.1 (10-20); Calcium 9.1 mg/dl (8.5-10.1); Creatinine Clr Calc Pharmacy 37.8 ml/min; Est GFR (African American) 52.1; Est GFR (Non-African American) 44.9; Potassium 4.8 mmol/L (3.5-5.1)
--- NOTE | 2019-10-20 08:11 | Orthopedic Progress Note ---
Date of Service October 20, 2019 Assessment & Plan (1) Lumbar disc herniation with radiculopathy: Patient will continue physical therapy today. She is already noting marked improvement in strength of the right lower extremity walking last evening. I suspect she will be okay for discharge Thursday or Thursday. Present on Admission?: Yes Admission and Anticipated Discharge Date Admission Date: October 19, 2019 Subjective Back pain controlled leg symptoms markedly improved. Physical Exam Physical Exam: Patient is good strength testing appears comfortable. Results & Data ([facility]) Vital Signs (Past 12 Hours) Vital Signs Temp Pulse Pulse Resp BP BP Pulse Ox 10/20/19 07:51 36.4 C L 82 18 101/68 96 10/20/19 03:12 36.4 C L 79 16 100/69 94 10/19/19 23:12 109/67 10/19/19 23:11 36.5 C 79 14 89/61 L 93
[2019-10-20] MEDS: MULTIVITAMIN TAB PO SCH (11:20)
--- NOTE | 2019-10-20 19:46 | Hospitalist Progress Note ---
Date of Service October 20, 2019 Assessment & Plan (1) Hypertension: BP good overall control. w sl rise in cr and expected drop in Hgb will hold ACEi for now and follow into tomorrow (2) DVT prophylaxis: per orthopedics - currently mechanical. (3) Anemia: acute blood loss in the range of expected for procedure Admission and Anticipated Discharge Date Admission Date: October 19, 2019 Subjective feeling decent pain controlled no complaints Review of Systems Review of Systems: All systems reviewed & are unremarkable except as noted in HPI & below Physical Exam 2 Physical Exam: gen aao pleasant nad heent nc at mmm breathing unlabored no accessory muscles good effort skin no rashes no pallor or icterus Results & Data Results & Data ([facility]) Vital Signs (Past 12 Hours) Vital Signs Temp Pulse Resp BP Pulse Ox 10/20/19 19:18 98.1 F 90 18 130/86 94 10/20/19 15:17 97.9 F 82 18 122/77 98 10/20/19 11:11 97.9 F 89 18 114/77 94 10/20/19 07:51 97.5 F L 82 18 101/68 96 PG Care Time/CCT Total # of Minutes Spent Total Time Spent with Patient: Total time spent is greater than 50% in coordination of care (as documented) at patient's floor/unit and/or counseling patient: Coding Level of Care Code 69762 Subseq Hosp Care Lvl 2 Diagnoses Hypertension I10 DVT prophylaxis Z29.9 Anemia D64.9
[2019-10-20] MEDS: DOCUSATE SODIUM/SENNA 50/8.6MG TAB PO SCH (20:29)
[2019-10-21] MEDS: OXYCODONE HCL IR 5 MG TAB (IMMEDIATE RELEASE) PO PRN ×5 (03:00→18:43)
[2019-10-21 05:17] LABS: Basophils # (auto) 0.02 K/uL (0-0.2); Basophils % (auto) 0.3 %; Eosinophils # (auto) 0.11 K/uL (0-0.5); Eosinophils % (auto) 1.4 %; Hematocrit (blood only) 31.2 % (37-47); Hemoglobin 9.8 g/dL (12.0-16.0); Immature Granulocytes # (auto) 0.02 K/uL (0.00-0.02); Immature Granulocytes % (auto) 0.3 %; Lymphocytes % (auto) 10.2 %; Mean Corpuscular Hemoglobin 31.2 pg (25-34); Mean Corpuscular Hgb Conc 31.4 g/dL (32-36); Mean Corpuscular Volume 99.4 fL (80-100); Mean Platelet Volume 9.3 fL (7.4-10.4); Monocytes # (auto) 0.94 K/uL (0.11-0.59); Neutrophils # (auto) 5.96 K/uL (1.4-6.5); Neutrophils % (auto) 75.8 %; Nucleated RBC # (auto) 0.03 K/uL (0-0); Nucleated RBC % (auto) 0.4 %; Platelet Count 286 K/uL (130-400); RDW Coefficient of Variation 14.1 % (11.5-14.5); RDW Standard Deviation 50.7 fL (36.4-46.3); Red Blood Count 3.14 M/uL (4.2-5.4); White Blood Count 7.85 K/uL (4.8-10.8)
[2019-10-21 05:46] LABS: BUN Creatinine Ratio 19.8 (10-20); Calcium 8.6 mg/dl (8.5-10.1); Creatinine Clr Calc Pharmacy 37.5 ml/min; Est GFR (African American) 51.5; Est GFR (Non-African American) 44.5; Potassium 4.2 mmol/L (3.5-5.1)
[2019-10-21] MEDS: MULTIVITAMIN TAB PO SCH (11:48)
--- NOTE | 2019-10-21 12:38 | Orthopedic Progress Note ---
Date of Service October 21, 2019 Assessment & Plan (1) Lumbar disc herniation with radiculopathy: At this time we will continue physical therapy monitor her CASS output anticipate discharge home tomorrow. Present on Admission?: Yes Admission and Anticipated Discharge Date Admission Date: October 19, 2019 Subjective Patient's back pain is controlled leg symptoms improved. She did note some discomfort first thing this morning but that is resolved. Physical Exam Physical Exam: Patient is in a chair at the bedside is good strength testing. Results & Data ([facility]) Vital Signs (Past 12 Hours) Vital Signs Temp Pulse Resp BP Pulse Ox 10/21/19 07:18 37.0 C 90 16 114/68 95
--- NOTE | 2019-10-21 18:48 | Hospitalist Progress Note ---
Date of Service October 21, 2019 Assessment & Plan (1) Hypertension: BP good overall control. Hgb and Cr stable from yesterday. continue to hold lisinopril - shelbie since BP also in acceptable range (2) DVT prophylaxis: per orthopedics - currently mechanical. (3) Anemia: acute blood loss in the range of expected for procedure Admission and Anticipated Discharge Date Admission Date: October 19, 2019 Subjective continues to feel ok - did have more pain earlier but better now, walking well, hopeful for home tomorrow. no other sx. Review of Systems Review of Systems: All systems reviewed & are unremarkable except as noted in HPI & below Physical Exam Physical Exam: gen pleasant nad heent nc at mmm breathing unlabored no accessory muscles good effort skin no rashes no pallor or icterus Results & Data Results & Data ([facility]) Vital Signs (Past 12 Hours) Vital Signs Temp Pulse Resp BP Pulse Ox 10/21/19 15:13 98.1 F 103 H 18 130/87 100 10/21/19 07:18 98.6 F 90 16 114/68 95 PG Care Time/CCT Total # of Minutes Spent Total Time Spent with Patient: Total time spent is greater than 50% in coordination of care (as documented) at patient's floor/unit and/or counseling patient: Coding Level of Care Code 16413 Subseq Hosp Care Lvl 2 Diagnoses Hypertension I10 DVT prophylaxis Z29.9 Anemia D64.9
[2019-10-21] MEDS: DOCUSATE SODIUM/SENNA 50/8.6MG TAB PO SCH (20:51)
[2019-10-21 23:17] VITALS: BP 113/75; TEMP 98.4; O2SAT 95
[2019-10-22] MEDS: OXYCODONE HCL IR 5 MG TAB (IMMEDIATE RELEASE) PO PRN ×2 (03:35→09:57)
[2019-10-22 10:30] VITALS: PULSE 79
--- NOTE | 2019-10-22 10:42 | Discharge Summary ---
Date of Service October 22, 2019 Admission HPI Per Admitting Provider This is a 68-year-old female that began experiencing symptoms in the fall of last year. She was originally managed with oral prednisone and had undergone a series of epidural injections. Unfortunately her symptoms returned in December and have been progressive since. Described as involving the right buttocks and down the right anterior thigh to the knee. She did have one transforaminal injection was provided 1 to 2 days of relief. She is only comfortable sitting has to for change positions frequently. Standing and walking has become severely limited secondary to pain and progressive weakness involving the right quadricep. She does use a walker secondary to leg weakness and falls. Principal Diagnosis Lumbar spinal stenosis with neurogenic claudication Discharge Data Allergies Allergy/AdvReac Type Severity Reaction Status Date / Time No Known Allergies Allergy Verified 10/19/19 07:55 Consultations 10/19/19 12:19 Consult Case Management - Discharge Planning Routine Consult Hospitalist Routine Procedures Performed Operation Date: 10/19/19 09:05 Actual Procedures p L3-L4 Transforaminal Lumbar Interbody Fusion, Spinal Cord Monitoring(Not Applicable) - Garrett Gaming DO Ordered Studies 10/19/19 09:05 FL fluoroscopy <1hr Routine FL lumbar spine 2-3V Routine Hospital Course (1) Lumbar disc herniation with radiculopathy: Patient underwent lumbar decompression fusion tolerated well second orthopedic for postop labor postop day #1 leg pain and strength improved she progressed appropriately through postop day #2 on postop day #3 CASS drain decreasing probably. Pain well controlled. Strength intact. Subsequent discharge home. Discharge orders and instructions from the chart for further review. Total Time Total Time Spent Total Time Spent (In Minutes): 20 minutes Discharge Plan Discharge Items Patient Disposition: Home - Self-Care Reason For Visit: Spinal Stenosis, Lumbar Region without Neurogenic Discharge Diagnosis: Lumbar spinal stenosis with neurogenic claudication lumbar radiculopathy with leg weakness Activity: As commented below Non-emergency contact: Primary Care Provider Call non-emergency contact if: you have any medication questions Follow-up/Referrals: Nathalie Rick CRNP [Primary Care Provider] - Diet: Regular Addtl Attending Provider Instructions: ACTIVITY RECOMMENDATIONS: SELF CARE INSTRUCTIONS AFTER THORACIC/LUMBAR FUSIONS 1. You may walk to your tolerance. It is good exercise for your legs and back. Expect some back and intermittent leg aches and pains. 2. You may perform "counter-top" level activities (make a sandwich, rafi with a project, etc.). 3. No bending or lifting of more than 10 pounds or back twisting of any nature (roll like a log when turning in bed). 4. You may ride in a car for 20-30 minutes at a time. No driving until after your first visit with your doctor. 5. Frequent changes of position and restricting sitting to 30 minutes at a time will help limit the amount of back spasms and stiffness you may experience. 6. You may discontinue the use of ambulatory aids (cane, crutches, etc.) once your strength and confidence allow. 7. You may auto customize painter the shower and let water strike your incision when you arrive home at least once daily. Do not take a tub bath, sit in a hot tub or go into a swimming pool until after your first recheck in the office. SPECIAL CARE INSTRUCTIONS: VERY IMPORTANT TO READ AND REVIEW A. Your surgical incision has been closed with a cosmetic suture under the skin that will dissolve in about 6 weeks. In 14 days, you can use a pair of clean scissors and cut the suture that is left outside of the skin at the ends of your incision. 1. The small skin tapes can be removed 7 days after surgery if they have not fallen off by that point. 2. You may keep the wound open to air as much as possible to promote healing after post-op day number 5 unless told otherwise by your doctor. 3. If you think the wound looks like it is becoming infected (redness or worsening drainage) and/or you are experiencing fever, chill or worsening back pain and muscle spasms, contact the office so that we may evaluate you as soon as possible. B. Complications are uncommon, but please contact us if you have any signs or symptoms of: 1. wound infection (fever higher than 102.5 degrees F, redness, separation of wound, drainage, or increasing pain from the incision) 2. blood clots in legs (pain, swelling, redness and warmth in legs) 3. urinary tract infection (fever higher than 102.5 degrees F, burning upon urination or increased frequency of urination) 4. nerve problems (inability to walk on your toes or heels, numbness, loss of bowel or bladder control) 5. any other symptoms that concern you C. Please call the office at if you have any concerns or questions about your operation or recovery. D. No smoking! Smoking drastically decreases the chance of a solid fusion. E. Do not take any anti-inflammatory medications (Indocin, Advil, Motrin, Aspirin, Naprosyn, etc.) as these may inhibit the chance of a solid fusion. Tylenol is okay to take for pain. MANAGING PAIN AFTER SPINAL SURGERY 1. Narcotic medication is intended for short-term use and will be provided for surgical pain. Surgical pain usually lasts for a period of 4-6 weeks. Narcotic medication includes Percocet, Vicodin, Darvocet, Tylenol #3 or Lortab. 2. Longer-term pain is more appropriately treated with non-narcotic medication such as Tylenol ES. 3. Muscle spasm is not appropriately treated with narcotics. Muscle relaxers such as Soma, Flexeril or Skelaxin can be used along with Tylenol ES. 4. Remember that we all live with some "aches and pains". This is not unusual or uncommon after an injury or as we get older. a. Back pain is expected and may include muscle spasms for 4 to 6 weeks after surgery. The pain should gradually improve. If the pain worsens for no apparent reason, please contact the office. b. Intermittent leg pain may also be experienced and should not be concerned about unless it worsens for no apparent reason. If so, please contact the office. 5. We will provide appropriate medication within the normal guidelines of their prescribed use. We will also be very cautious and aware of potential abuse and extended duration of patients' medication needs. a. Pain medications are for your comfort and to assist with sleep and rest so that the tissue can heal. They are not provided in order to return to normal activity and should not be used through the day. To do so or worsening pain at night can result from ongoing tissue damage and development of tolerance to the prescribed medicine. 6. Please allow 2-3 days to process refills. Prescriptions will not be mailed but must be picked up at the office. FOLLOW UP VISIT: Keep your scheduled follow-up appointment. Any questions, please call the office at . Pending Studies at Discharge: No Stand-Alone Forms: [employer], Smoking Cessation Medications and DC Order Prescriptions: New oxycodone 5 mg tablet 5 mg PO Q6H PRN (Reason: pain, severe) Qty: 20 RF: 0 tramadol 50 mg tablet 50 mg PO Q6H PRN (Reason: pain, moderate) Qty: 20 RF: 0 Continued lisinopril 10 mg tablet 15 mg PO QDL RF: 0 multivitamin Tablet 1 tab PO QDL RF: 0 Discharge Orders: Discharge Order (Routine); Ordered 10/22/19 Ordered By: Garrett Gaming Admission Data Admit Date/Time: 10/19/19 11:28 Attending Provider: Garrett Gaming Admit Provider: Garrett Gaming Primary Care Provider: Nathalie Rick Other Providers: Max Del Cid Other Interventions: Discharge Summary Assessment (RN) Last Done: 10/22/19 10:27
--- NOTE | 2019-10-22 15:06 | Hospitalist Progress Note ---
Date of Service October 22, 2019 Assessment & Plan (1) Hypertension: BP good overall control. off meds. for now - home off meds, f/u BP 2-3 times a day next 1-2 weeks then every few days thereafter, check in w PCP. if staying <140/90 then would continue to hold off medically stable for discharge (2) DVT prophylaxis: per orthopedics - currently mechanical. (3) Anemia: acute blood loss in the range of expected for procedure Admission and Anticipated Discharge Date Admission Date: October 19, 2019 Subjective feeling well pain reasonable hopes to go home. no new complaints no new issues. hoping for home later. BP continues to run well - feels comfortable with following BP off meds at home Review of Systems Review of Systems: All systems reviewed & are unremarkable except as noted in HPI & below Physical Exam Physical Exam: gen pleasant nad heent nc at mmm breathing unlabored no accessory muscles good effort skin no rashes no pallor or icterus Results & Data Results & Data ([facility]) Vital Signs (Past 12 Hours) Vital Signs Temp Pulse Pulse Resp BP BP Pulse Ox 10/22/19 10:27 98.4 F 103 H 79 16 113/75 130/87 95 PG Care Time/CCT Total # of Minutes Spent Total Time Spent with Patient: Total time spent is greater than 50% in coordination of care (as documented) at patient's floor/unit and/or counseling patient: Coding Level of Care Code 99273 Subseq Hosp Care Lvl 2 Diagnoses Hypertension I10 DVT prophylaxis Z29.9 Anemia D64.9
== END 2019-10-22 12:57 | disposition home or self-care (01) | DRG 455 ==
LOC: ASU 07:38 → 3E 11:28

== ENCOUNTER 2020-06-28 09:47 | Observation (INO) ==
--- NOTE | 2020-06-26 15:09 | Anesthesiology Consultation ---
Date of Service June 26, 2020 Assessment & Plan (1) Encounter for pre-operative examination: COVID Status: As of 06/26 nurse assessment, patient denies travel to endemic area, known exposure/sick contacts, or symptoms of COVID19. Preoperative COVID19 testing completed on 06/25, results pending. S/P L3-L4 TLIF 10/19/19 = Garcia #2, ETT 7.5 Kenner oral, atraumatic DL x 1, grade view I. Chart Review Chart Review: Acceptable Risk for Surgery and Patient NOT seen in Pre Admission Testing History Surgery Operation Date: 06/28/20 11:00 Proposed Procedures p Right Hip Hemiarthroplasty - Herrera Rivera MD Height/Weight Height: 4 ft 9 in Weight: 70.307 kg Allergies Allergy/AdvReac Type Severity Reaction Status Date / Time No Known Allergies Allergy Verified 06/26/20 14:28 Medications Home Medications Medication Instructions Recorded Confirmed Last Taken multivitamin 1 tab PO QAM 09/28/19 06/26/20 10/18/19 11:00 lisinopril 10 mg tablet 15 mg PO QAM tab 03/02/20 06/26/20 Unknown celecoxib [Celebrex] 200 mg PO QAM 06/26/20 06/26/20 Unknown Past Medical History Medical History Arthritis of spine Bowel habit changes URGENCY - R/T TO CHEMO AND RADIATION -- doing better currently Dry mouth RESIDUAL EFFECT FROM CHEMO AND RADIATION Fracture, hip unsure of how and was found on xray History of anal cancer HAD CHEMO AND RADIATION - 2018 TREATED [facility] - [facility]; Hypertension Past Family History Family History Mother Family history of diabetes mellitus Sister Family history of diabetes mellitus Past Surgical History Surgical History History of lumbar spinal fusion chronic back pain History of open reduction and internal fixation (ORIF) procedure RIGHT ELBOW History of vascular access device MEDIPORT IN PLACE - has flushed every 6 weeks Hx of knee surgery left X4; ONE SURGERY FOR PATELLA REMOVAL Social History Smoking Status: Never smoker Do You Dip or Chew Tobacco: No Hx Alcohol Use: Yes Alcohol type: wine alcohol intake frequency: holidays/special occasions only Hx Substance Use: No substance use type: does not use Testing Laboratory Results 12/04/20 WBC: 3.79 H/H: 11.5/36.3 PLATELETS: 317 SODIUM: 137 POTASSIUM: 4.4 CHLORIDE: 108 CO2: 23 BUN: 28 CREATININE: 1.06 GLUCOSE: 87 PT: 10.3 PTT: 26.3 INR: 1.0 Electrocardiogram Date: 10/04/19 Findings: + NSR @ (84bpm) Chest X-Ray Date: 06/25/20 Findings: + NAD
[~2020-06-28 09:47] MED LIST changes: -ACETAMINOPHEN 500 MG TAB PO SCH; +BUPIVACAINE 0.5 % 5 MG/1 ML PF 10ML VIAL ONE; -CEFAZOLIN 1000MG 1,000 MG/7.5 ML SYR IV SCH; -CeleBREX 200 MG CAP PO SCH; -GABAPENTIN 300 MG CAP PO SCH; -LR 15ML/HR IV SCH; +LR 500ML BOLUS, THEN 15ML/HR IV SCH; +ceFAZolin 1000MG 1,000 MG/7.5 ML SYR IV SCH
[2020-06-28] MEDS ORDERED: HYDROmorphone INJ 1 MG/ML SYRINGE IV PRN (10:40)
[2020-06-28] MEDS ORDERED: LABETALOL HCL IV 5 MG/ML 20ML IV PRN (10:40)
[2020-06-28] MEDS ORDERED: fentaNYL citrate 100 MCG/2 ML VIAL IV PRN (10:40)
[2020-06-28] MEDS ORDERED: MEPERIDINE HCL 25 MG/ML CARP/VIAL IV PRN (10:40)
[2020-06-28] MEDS ORDERED: ONDANSETRON INJ 2 MG/ML 2 ML VIAL IV PRN (10:40)
[2020-06-28] MEDS ORDERED: ePHEDrine sulfate 50 MG/ML AMP IV PRN (10:40)
[2020-06-28] MEDS ORDERED: PHENYLEPHRINE 100MCG/ML 5ML SYR IV PRN (10:40)
[2020-06-28] MEDS ORDERED: ATROPINE SULFATE 0.1 MG/ML 10ML SYR IV PRN (10:40)
[2020-06-28] MEDS ORDERED: THROMBIN FOR SOLN 20000 UNIT KIT ONE (11:22)
[2020-06-28] MEDS ORDERED: BACITRACIN INJ 50,000 UNIT VIAL ONE (11:22)
[2020-06-28] MEDS ORDERED: KETAMINE 50 MG/5 ML SYRINGE ONE (14:27)
[2020-06-28] MEDS ORDERED: MIDAZOLAM HCL 1 MG/ML 2ML VIAL ONE ×2 (14:27→16:42)
[2020-06-28] MEDS ORDERED: EPINEPHrine INJ 1 MG/ML AMP ONE (14:50)
--- NOTE | 2020-06-28 14:58 | History & Physical Bridge Note ---
Date of Service June 28, 2020 History & Physical Bridge Note I have examined the patient, reviewed the History & Physical and in the interval since the performance of the History & Physical I have noted the following changes of clinical significance: no changes noted
[2020-06-28] MEDS ORDERED: ONDANSETRON INJ 2 MG/ML 2 ML VIAL ONE (15:39)
[2020-06-28] MEDS ORDERED: LIDOCAINE HCL 2% 2 ML VIAL/AMP(20MG/ML) INFIL ONE (15:39)
[2020-06-28] MEDS ORDERED: PROPOFOL IV EMULSION 10 MG/ML 20 ML VIAL IV ONE (15:39)
[2020-06-28] MEDS ORDERED: ESMOLOL HCL INJ 10 MG/ML 10ML VIAL IV ONE (15:39)
[2020-06-28] MEDS ORDERED: PHENYLEPHRINE 100MCG/ML 5ML SYR ONE ×2 (16:04→16:46)
[2020-06-28] MEDS ORDERED: PHENYLEPHRINE HCL 10 MG/ML VIAL ONE (17:10)
--- NOTE | 2020-06-28 17:45 | Post Operative Brief Note ---
Immediate Post Op Note v1 Date of Surgery June 28, 2020 Pre & Post Diagnosis Operation Date: 06/28/20 12:00 Pre-Op Diagnosis: subacute incomplete Right Femoral Neck Fracture Post-Op Diagnosis: same I identified the patient and participated in the time-out.: Yes Procedure Operation Date: 06/28/20 12:00 Actual Procedures p Right Hip Hemiarthroplasty(Right) - Herrera Rivera MD Surgeon Herrera Rivera MD Exhaust Equipment Operator jose de jesus, fellow, HARISH james Estimated Blood Loss 15 Findings Consistent with Post-Op Diagnosis Specimens femoral head Drains Long Catheter (16french inserted without difficulty by Yusef Delgado RN. To be removed at end of case) Anesthesia Type Spinal MAC Disposition Accompanied Patient To Recovery: No Disposition: Recovery Room
--- NOTE | 2020-06-28 18:36 | XRay Report ---
XR hip RT min 2V HISTORY: 69 years-old Female Post-Operative implant position right hip total joint arthroplasty COMPARISON: Pelvis and right hip radiographs 06/25/2020 TECHNIQUE: 2 views of the right hip FINDINGS: Right hip total joint arthroplasty demonstrates satisfactory alignment. Overlying skin jose are no alexandr along with expected postsurgical soft tissue swelling and deep tissue air. Numerous pelvic basin phlebolith. Partially imaged lumbar spinal fusion hardware. IMPRESSION: Right hip total joint arthroplasty with expected postoperative changes. ACT 112: Negative or not required by law. The above report was generated using voice recognition software. It may contain grammatical, syntax o r spelling errors. Electronically signed by: Duane Partida M.D. 06/28/2020 6:35 PM
--- NOTE | 2020-06-28 18:41 | Operative Report ---
Post Operative Report Pre & Post Diagnosis Operation Date: 06/28/20 12:00 Pre-Op Diagnosis: Right Femoral Neck Fracture Post-Op Diagnosis: Right Femoral Neck Fracture I identified the patient and participated in the time-out.: Yes Procedure Operation Date: 06/28/20 12:00 Actual Procedures p Right Hip Hemiarthroplasty(Right) - Herrera Rivera MD Surgeon Herrera Rivera MD Small Arms Repairer jose de jesus, fellow, HARISH james Estimated Blood Loss 15 Findings Consistent with Post-Op Diagnosis Specimens Femoral head Anesthesia Type Spinal MAC Complications none Disposition Accompanied Patient To Recovery: No Disposition: Recovery Room Indications Patient 69. She has had a years worth of right hip pain. Because of hip and low back pain she had a spinal fusion done. There has not been an injury or any acute change in her situation. At a routine screening for rectal cancer follow- up it was identified that she had what appeared to be a subacute/chronic fracture of the right femoral neck. On consultation with radiology this was not felt to be pathologic in terms of metastatic disease. Patient's been seen and evaluated in the office. She has radiographic findings consistent with a chronic but incomplete fracture of the femoral neck with impaction and shifting of the bone. She has hip pain and there is concerned that this could complete. I have offered and recommended to her operative intervention and she agreed to proceed. Description of Procedure Informed consent obtained. Patient identified. She identified the operative site as the right hip. I marked with my initials. A preoperative surgical timeout was performed and a preop dose of IV antibiotics was given. She was taken to the operating room positioned supine on the operating room table. The anesthetic was administered. She was placed decubitus with the right side up. Bony prominences inspected of the upper and lower extremities. Axillary roll inserted. Stulberg positioner utilized. Long catheter inserted. DVT prophylaxis with foot pumps. Postoperatively early mobility mechanical devices and Lovenox beginning the morning after surgery. Routine prep and drape was performed followed by a posterior approach to the hip. The skin was incised followed by electrocautery through the subcutaneous tissues. The fascia was opened in line with the femoral shaft. Charnley retractor inserted. Short external rotators were elevated off of the proximal posterior femur and tagged for later repair. Gluteus minimus elevated up off of the joint capsule which was then incised and reflected posterior for later repair. No blood was noted but there was some serous fluid within the hip. The hip was able to easily be dislocated. I did an inferior capsulotomy and left the psoas attached. The femoral head was deformed. The femoral head appeared to be shifted inferiorly but remained intact with the neck and impacted. An osteotome could fairly easily be inserted into what appeared to be a chronic fracture line at the superior femoral neck. The femoral neck was markedly shortened and there appeared to be some degree of retroversion present. The osteotomy was marked out. Due to the shortness of the femoral neck a low cut was made just several millimeters above the lesser trochanter. The lesser trochanter was notably prominent as was the greater trochanter and there appeared to be some chronic bony deformities present. The osteotomy was made at the after mentioned location and I had to complete this by a longitudinal osteotomy of the neck itself and line with the shaft due to the deformity. I then used the box cutting guide followed by the canal finder and lateralizing reamer. Some overhanging bone was removed. Some of the prominent neck was removed as well. I began broaching at size 7 in maximum anteversion which was about 15 to 20 degrees. I carefully seated the 7 8 and 9 broaches. The 9 broach had good fit fill and rotational stability. Trialing was then performed. Prior to that the ligamentum teres was removed and a degenerative labral tear was removed. The acetabulum was mildly shallow. The head measured 47 but I thought a 45 seated much better. I also trialed with a 43 which was loose. The femoral head other than having the notable chronic fracture pattern appeared to have a good quality bone I without any evidence of bony destruction. There is no soft tissue mass appreciated. Trialing was performed starting with a 0 neck length which I eventually increased to a +6. I did have concerns because of the shortening that I would have difficulty getting the hip reduced however the +6 neck length gave negative shuck and good rotational stability with flexion abduction and internal rotation and flexion abduction and internal rotation. It was slightly springy in full extension but the knee can be fully the hip and knee could be fully extended. Then went ahead and irrigated the canal. I attempted to put into some cementralizer however the canal was small enough that the sanitarian inspector for the cementralizer would not rotate. I was able to evacuate everything and the cementralizer itself was damaged. I then went ahead and impacted a small piece of bone down to act as a canal restrictor to 14 cm in length. The canal was irrigated and dried. 2 bags of Simplex P cement were mixed and while in a runny/slightly doughy state retrograde fill was performed. I cannot insert the cement tube all the way into the canal but went as far as I could until it pushed me back. The cement was pressurized and the implant was inserted taking care to avoid varus and and placing it in maximum anteversion which was about 20 to 25 degrees at this point. I held this there until the cement was hardened and then I retrialed. The +6 neck length gave the best stability and I did not think that I could go any longer than that. Care was taken to protect the acetabulum. The trunnion was cleaned and then the bipolar shell was assembled on the back table and impacted and the hip was reduced. Copious irrigation was performed. The acetabulum was normal. I went ahead and then close the short external rotators and the upper portion of the joint capsule to the superior margin of the greater trochanter and hip abductor mechanism. The remainder of the posterior joint capsule would not reach the femur for repair due to its shortening. I then closed the gluteal fascia and iliotibial tibial band. The IT band was closed with interrupted #2 FiberWire in the gluteal fascia with running and interrupted #1 Vicryl. The skin was closed in layers with 0 and 2-0 Vicryl jose on the skin. A soft sterile dressing was applied Xeroform 4 x 4's ABD foam tape. Patient had an abduction pillow placed after being returned to the supine position. She was then taken to the recovery room in stable condition. The resected femoral head was sent for specimen. There were no complications. Counts were correct blood loss was estimated to be 15 cc. At the conclusion the operation spoke to patient's sister and informed her of my findings. Postoperative instructions were given. Total hip precautions. Lovenox the morning after surgery. Weight-bear as tolerated with walker. This was a Biomet Echo fracture cemented stem size 7 x 1 2045 mm shell 28 head with a +6 neck and a distal cementralizer which was applied with cement prior to component insertion. I attest to the content of the Intraoperative Record and any orders documented therein. Any exceptions are noted below.
--- NOTE | 2020-06-28 19:06 | Anesthesiology Progress Note ---
Date of Service June 28, 2020 Anesthesia Post Procedure Vital Signs Vital Signs: Temp Pulse Pulse Resp BP Pulse Ox 06/28/20 19:00 66 16 119/85 100 06/28/20 18:45 69 16 138/71 100 06/28/20 18:30 36.4 C L 72 16 102/73 100 06/28/20 18:20 77 16 119/86 100 06/28/20 18:10 80 16 116/73 99 06/28/20 18:03 36.3 C L 93 H 20 107/76 100 06/28/20 10:00 37.1 C 85 20 134/89 95 Transfer of Care Handoff Completed per policy Notes Mental Status: alert / awake / arousable Patient Amnestic to Procedure: Yes Nausea / Vomiting: adequately controlled Pain: adequately controlled Airway Patency, RR, SpO2: stable & adequate BP & HR: stable & adequate Hydration State: stable & adequate Neuraxial Anesthesia: was administered and sensory block is resolving Anesthetic Complications: no major complications apparent
[2020-06-28] MEDS ORDERED: hydrALAZINE HCL 20 MG/ML VIAL IV PRN (19:20)
[2020-06-28] MEDS ORDERED: NALOXONE HCL 0.4 MG/1 ML VIAL/CARP IV PRN (19:20)
[2020-06-28] MEDS: oxyCODONE HCL IR 5 MG TAB (IMMEDIATE RELEASE) PO PRN (19:57)
[2020-06-28] MEDS: ACETAMINOPHEN 500 MG TAB PO SCH (21:01)
[2020-06-28] MEDS: D5W AND 1/2NSS 1,000 ML IV SCH (21:31)
[2020-06-28] MEDS: ceFAZolin 1000MG 1,000 MG/7.5 ML SYR IV SCH (23:13)
[2020-06-28] MEDS: traMADol HCL 50 MG TABLET PO PRN (23:13)
[2020-06-29] MEDS: HYDROmorphone INJ 0.5 MG/0.5 ML SYR IV PRN ×2 (00:22→05:35)
[2020-06-29] MEDS: ACETAMINOPHEN 500 MG TAB PO SCH ×3 (05:35→21:37)
[2020-06-29 06:32] LABS: Basophils # (auto) 0.01 K/uL (0-0.2); Basophils % (auto) 0.1 %; Eosinophils # (auto) 0.04 K/uL (0-0.5); Eosinophils % (auto) 0.6 %; Hematocrit (blood only) 31.2 % (37-47); Hemoglobin 10.1 g/dL (12.0-16.0); Immature Granulocytes # (auto) 0.01 K/uL (0.00-0.02); Immature Granulocytes % (auto) 0.1 %; Lymphocytes # (auto) 0.41 K/uL (1.2-3.4); Lymphocytes % (auto) 6.1 %; Mean Corpuscular Hemoglobin 31.3 pg (25-34); Mean Corpuscular Hgb Conc 32.4 g/dL (32-36); Mean Corpuscular Volume 96.6 fL (80-100); Mean Platelet Volume 9.6 fL (7.4-10.4); Monocytes # (auto) 0.43 K/uL (0.11-0.59); Monocytes % (auto) 6.4 %; Neutrophils # (auto) 5.82 K/uL (1.4-6.5); Neutrophils % (auto) 86.7 %; Platelet Count 288 K/uL (130-400); RDW Coefficient of Variation 14.7 % (11.5-14.5); RDW Standard Deviation 52.3 fL (36.4-46.3); Red Blood Count 3.23 M/uL (4.2-5.4); White Blood Count 6.72 K/uL (4.8-10.8)
[2020-06-29 07:15] LABS: BUN Creatinine Ratio 23.9 (10-20); Calcium 8.9 mg/dl (8.5-10.1); Creatinine Clr Calc Pharmacy 41.4 ml/min; Est GFR (African American) 61.1; Est GFR (Non-African American) 52.7; Potassium 4.2 mmol/L (3.5-5.1)
[2020-06-29] MEDS: ENOXAPARIN INJ 30 MG/0.3 ML SYR SQ SCH ×2 (07:52→20:13)
[2020-06-29] MEDS: ceFAZolin 1000MG 1,000 MG/7.5 ML SYR IV SCH ×3 (07:52→23:20)
[2020-06-29] MEDS: MULTIVITAMIN TAB PO SCH (07:53)
[2020-06-29] MEDS: lisinopril 5 MG TAB PO SCH (07:53)
[2020-06-29] MEDS: traMADol HCL 50 MG TABLET PO PRN ×2 (09:09→15:25)
[2020-06-29] MEDS: D5W AND 1/2NSS 1,000 ML IV SCH ×2 (10:21→21:37)
[2020-06-29] MEDS: oxyCODONE HCL IR 5 MG TAB (IMMEDIATE RELEASE) PO PRN ×2 (11:40→20:13)
[2020-06-29] MEDS ORDERED: ERGOCALCIFEROL 50,000 UNITS 1250 MCG CAP PO SCH (12:30)
--- NOTE | 2020-06-29 16:19 | Progress Notes ---
DATE: 06/29/2020 SUBJECTIVE: In chair. Some pain last evening. Otherwise, well managed. No tingling or numbness. OBJECTIVE: Afebrile, vital signs stable. Urine output noted. White count 6, hemoglobin 10, hematocrit 31, platelets 288. PRP noted. X-ray postoperatively shows good cement technique. No complication evident. Good positioning of implant. Dorsalis pedis trace. She has 5/5 ankle and toe plantar flexion, inversion and eversion strength. Sensation intact. She is status post a right hip hemiarthroplasty for chronic insufficiency fracture femoral neck. PLAN: Continue rehab per protocol. Weightbear as tolerated. Total hip precautions and use of abduction pillow in bed and seated discussed. She is electing for acute care inpatient rehabilitation, which I would recommend. We will check on her tomorrow. Vitamin D low and has been replaced. She is neurovascularly intact and otherwise is doing well. Her pain is well controlled. Lovenox for DVT prophylaxis.
[2020-06-30] MEDS: traMADol HCL 50 MG TABLET PO PRN ×2 (03:43→08:58)
[2020-06-30] MEDS: ACETAMINOPHEN 500 MG TAB PO SCH ×3 (03:43→22:34)
[2020-06-30] MEDS: oxyCODONE HCL IR 5 MG TAB (IMMEDIATE RELEASE) PO PRN ×2 (04:26→22:35)
[2020-06-30] MEDS: ENOXAPARIN INJ 30 MG/0.3 ML SYR SQ SCH ×2 (08:51→20:17)
[2020-06-30] MEDS: lisinopril 5 MG TAB PO SCH (08:55)
[2020-06-30] MEDS: MULTIVITAMIN TAB PO SCH (08:55)
[2020-06-30] MEDS: D5W AND 1/2NSS 1,000 ML IV SCH (09:57)
[2020-06-30] MEDS: HYDROmorphone INJ 0.5 MG/0.5 ML SYR IV PRN (13:12)
--- NOTE | 2020-06-30 14:56 | Progress Notes ---
DATE: 06/30/2020 Resting comfortably in bed. She was able to do some therapy today, but has increased pain requiring narcotics. Otherwise, offers no significant complaint with the exception that her right knee has been bothering her. It bothered her after her spine surgery. Examination reveals limited movement of the right knee with no effusion, but tenderness on the medial side of the knee. She has a trace palpable posterior tibial pulse with normal sensation in the foot and 5/5 ankle and toe plantarflexion, dorsiflexion and eversion strength. Her dressing is changed. The incision is benign. There is minimal swelling and bruising and no drainage. New dressing applied. IMPRESSION: She has a pathological fracture of the right hip, status post hemiarthroplasty, there is also pain of the right knee. PLAN: Obtain x-rays of the right knee and apply ice. We will further evaluate tomorrow. Continue rehab per protocol. She may weightbear as tolerated and I reinforced total hip precautions. Her abduction pillow was not in place while she is in bed and I instructed her to have it in place at all times sitting, lying sleeping. Await discharge planning regarding [facility]. Continue Lovenox for DVT prophylaxis. Prior to surgery, the patient reported a leg length inequality of about 1 inch left being shorter than the right. Due to surgical factors adequate stability can only be obtained with lengthening of the right leg, which now results in almost a 2-inch leg length inequality as measured clinically. She noted this yesterday and we discussed it yesterday. Today, I did observe that there was about a 4 cm difference observed clinically. We will try to supplement this with a lift under the left shoe. I discussed the situation and circumstances with the patient.
--- NOTE | 2020-06-30 15:11 | XRay Report ---
RIGHT KNEE 2 VIEWS CLINICAL HISTORY: Right knee pain. FINDINGS: AP and crosstable lateral views of the right knee are obtained. No prior studies are availa ble for comparison at the time of dictation. The skeletal structures are osteopenic. No fracture is s een. There is moderate tricompartmental degenerative joint space narrowing. There are marginal osteop hytes and small patellar enthesophytes. There is likely chondrocalcinosis of the medial and lateral c ompartments. There is no significant joint effusion. Mild soft tissue edema is present in the left th igh. Benign-appearing sclerotic change is noted in the distal shaft of the femur, likely related to r ight hip arthroplasty placement. IMPRESSION: 1. Soft tissue swelling with no acute bony abnormality identified. 2. Osteopenia with degenerative change and chondrocalcinosis as above. Electronically signed by: Mitch Taveras M.D. 06/30/2020 3:10 PM
[2020-07-01] MEDS: ACETAMINOPHEN 500 MG TAB PO SCH ×3 (05:16→21:07)
[2020-07-01] MEDS: traMADol HCL 50 MG TABLET PO PRN ×3 (05:16→23:46)
[2020-07-01] MEDS: MULTIVITAMIN TAB PO SCH (08:32)
[2020-07-01] MEDS: lisinopril 5 MG TAB PO SCH (08:32)
[2020-07-01] MEDS: ENOXAPARIN INJ 30 MG/0.3 ML SYR SQ SCH ×2 (08:33→21:08)
[2020-07-01] MEDS: oxyCODONE HCL IR 5 MG TAB (IMMEDIATE RELEASE) PO PRN (08:35)
--- NOTE | 2020-07-01 12:54 | Progress Notes ---
DATE: 07/01/2020 Sitting in chair. There is no pillow between her knees and I reinforced use of the abduction pillow at all times. Gross neurovascular function intact. Less pain today. Able to do more with PT. She is afebrile and her vital signs are stable. Her knee is about the same. Most discomfort in the thigh and knee area. The knee x-rays show degenerative change and some swelling but no fracture. This is discussed. If knee pain persists, can consider a cortisone shot. At this time, still awaiting authorization for acute care rehab at [facility]. Continue DVT prophylaxis. Total hip precautions, physical therapy and occupational therapy. She also has vitamin D deficiency. Await pathology report on the femoral head.
[2020-07-02] MEDS: ACETAMINOPHEN 500 MG TAB PO SCH (05:09)
[2020-07-02 07:27] VITALS: BP 92/61; PULSE 73; TEMP 98.1; O2SAT 94
[2020-07-02 09:14] LABS: Hematocrit (blood only) 27.8 % (37-47); Hemoglobin 9.1 g/dL (12.0-16.0); Mean Corpuscular Hemoglobin 31.5 pg (25-34); Mean Corpuscular Hgb Conc 32.7 g/dL (32-36); Mean Corpuscular Volume 96.2 fL (80-100); Mean Platelet Volume 9.4 fL (7.4-10.4); Platelet Count 304 K/uL (130-400); RDW Standard Deviation 53.1 fL (36.4-46.3); Red Blood Count 2.89 M/uL (4.2-5.4); White Blood Count 6.63 K/uL (4.8-10.8)
--- NOTE | 2020-07-02 09:26 | Orthopedic Progress Note ---
Date of Service July 02, 2020 Assessment & Plan (1) Hip fracture: s/p Hemiarthroplasty right hip 06-28-[address] Rivera Patient doing well. Has some r knee pain at times. Per Dr Rivera may be candidate for right knee cortisone injection in future. I will speak to Dr Beaver, as patient was asking about getting before D/C. Could be referred from hip. Continue current diet, PO pain medication, ice to right hip. Continue DVT prophylaxis with lovenox, teds, foot pumps. Continue SHP, WBAT R LE, PT/OT. Dressing change today. Discharge planning to [facility] possibly today. Plan to follow-up with Dr Rivera as scheduled. Present on Admission?: Yes Admission and Anticipated Discharge Date Admission Date: June 28, 2020 Subjective Patient overall doing well. She is waiting on bed at [facility]. She does have some right knee pain going from sit to stand and changing positions, describing as a sense of stiffness. Dr Rivera is aware. Pain controlled with medication. Denies f/c/s, CP, SOB. N/T/R. Physical Exam Physical Exam: Right hip incision covered. C/D/I. No pain to right hip with log rolling but does have referred pain into knee. Egg crate bw legs. NV intact B LE. Teds donned. Calves soft. Trace PE R LE. 5/5 B EHL, TA, gastroc strength. Results & Data ([facility]) Vital Signs (Past 12 Hours) Vital Signs Temp Pulse Resp BP Pulse Ox 07/02/20 07:26 36.7 C 73 18 92/61 L 94 07/01/20 23:55 37.0 C 81 16 107/71 96 Laboratory Results 07/02/20 Range/Units 08:48 WBC 6.63 (4.8-10.8) K/uL RBC 2.89 L (4.2-5.4) M/uL Hgb 9.1 L (12.0-16.0) g/dL Hct 27.8 L (37-47) % MCV 96.2 (80-100) fL MCH 31.5 (25-34) pg MCHC 32.7 (32-36) g/dL RDW Std Deviation 53.1 H (36.4-46.3) fL RDW Coeff of Anthony 15.0 H (11.5-14.5) % Plt Count 304 (130-400) K/uL MPV 9.4 (7.4-10.4) fL
[2020-07-02] MEDS: traMADol HCL 50 MG TABLET PO PRN (09:40)
[2020-07-02] MEDS: MULTIVITAMIN TAB PO SCH (09:41)
[2020-07-02] MEDS: lisinopril 5 MG TAB PO SCH (09:41)
[2020-07-02] MEDS: ENOXAPARIN INJ 30 MG/0.3 ML SYR SQ SCH (09:42)
--- NOTE | 2020-07-02 15:26 | Discharge Summary ---
Date of Service July 02, 2020 Discharge Data Consultations 06/28/20 19:20 Consult Case Management - Discharge Planning Routine Procedures Performed Operation Date: 06/28/20 12:00 Actual Procedures p Right Hip Hemiarthroplasty(Right) - Herrera Rivera MD Hospital Course (1) Hip fracture: Patient is a pleasant 69-year-old female who is admitted to [facility] on June 28, 2021 to undergo A right hip hemiarthroplasty for right femoral neck fracture By Dr. Herrera Rivera. Her surgery was performed with spinal anesthesia. She tolerated the procedure well without any intraoperative or postoperative complications. She was given 2 g of IV Ancef for surgical prophylaxis which was continued for 24 hours after surgery. Postoperatively x-rays were obtained of her right hip and the PACU. X-rays appeared prosthesis to be stable. She was allowed out of bed, weightbearing as tolerated right lower extremity. She had posterior hip precautions. Her regular home medications were continued. She was placed on oxycodone, tramadol, Tylenol for pain control. Her pain was well-controlled after surgery and improved day by day. She has a lot of bed with the assistance of a walker. Physical therapy and occupational therapy consults were obtained. She was also seen by case management. She initially requested to go home with home health but then after physical therapy recommendations she was a candidate for inpatient rehabilitation. She agreed to inpatient rehabilitation and requested [facility]. A referral was placed. She tolerated a regular diet during her inpatient stay. She remained afebrile during her inpatient stay she did develop couple episodes his hypotension but was stable. Postoperative laboratory work was also stable. She has a chronically low H&H but no changes in her H&H postoperatively were noted. She did not develop any postoperative ch est pain or shortness of breath. She was repeatedly reminded to use an abduction pillow for standard portal between her knees when lying in bed or sitting in a chair. Each day she improved. Her dressings were changed on postoperative day 2. She was placed on Lovenox 30 mg twice a day for DVT prophylaxis which will be continued for 2-4 weeks as an outpatient. Vitamin D level was also obtained and was found to be low at 23. She was placed on vitamin D 50,000 international units weekly, every Thursday. Postoperative course was discussed. Postoperative x-rays were also reviewed with the patient. Insurance authorization was obtained for [facility] and at that was available on July 02, 2020. She will follow up as scheduled as an outpatient. All questions were answered, discharge instructions were reviewed and sent to [facility]. She was discharged to [facility] in stable condition on July 02, 2020. Discharge Instructions New Medicine: * You will likely be taking one or more of these medicines: 1. Oxycodone - Take, as directed, when you need it, every four to six hours to control your pain. Prescription sent to pharmacy 2. Iron Sulfate - Take three times each day for the month after surgery to help you replace the blood lost during surgery. You can obtain this over the counter. 3. Lovenox - Thins your blood to lessen the chance of forming a blood clot. take twice daily as prescribed. Prescription sent to pharmacy 4. Tramadol - Take, as directed, when you need it every four to six hours to control your pain, alternate with oxycodone or Tylenol. Prescription sent to pharmacy. 5. Tylenol - take 1-2 tablets every 8 hours scheduled, once pain under control make take as needed for mild pain. 6. Colace - over the counter, stool softener, take while on pain medication and iron as these may cause constipation. 7. Dulcolax - over the counter, take as needed for constipation. 8. Vitamin D - 50,000 IU weekly on Fridays - prescription sent to pharmacy. * The most common side effects of pain medicine and iron are nausea and constipation. If nausea or constipation is too much of a problem or if you have any questions about your new medicines or doses, call [facility] at . We will try to help you manage these issues. "VERY IMPORTANT TO READ AND REVIEW" Blood Clots and Blood Thinning Medicine: * You are given Lovenox during the immediate post-operative period to lessen the risk of blood clots forming in your legs and/or lungs. Lovenox is usually given for 2-4 weeks after surgery. * The prescription is for 30 mg injections. You will take it twice daily. Pain: * The immediate post-operative period after hip replacement surgery is often quite painful. * You are given a prescription for pain medicine. You should take it, as directed, when you need it, especially before physical therapy and before going to bed. Pain that interferes with sleep is very common and can last several months. * You will likely need pain medicine for the first two to four weeks. It will not stop all of the pain. The pain will lessen and as you feel better, you may change to milder pain medicine such as Tylenol. * The most common side effects of pain medicine are nausea and constipation, so don't take more than you need. Physical Therapy: * Follow the "Hip Precautions Instructions." * In some cases, the licensed clinical social worker at the hospital will arrange to have a therapist come to your house for the first couple of weeks to help you learn these skills. * You need to practice on your own or with the help of a family member as needed. * When you learn these skills, most of the therapy can be done on your own. Home Exercise: * You were shown a series of exercises in the hospital. Do these exercises three to four times each day including the exercises you were shown in physical therapy. Walking: * Get up and walk several times each day. For the first four weeks, try not to stand or walk for more than one hour at a time. If you do stand or walk for more than one hour, you will not hurt anything, but your leg will likely swell. * As you feel comfortable, you may change from the walker or crutches to a cane and then to independent walking. SELF CARE INSTRUCTIONS AFTER TOTAL HIP REPLACEMENT Until the incision and soft tissues around your hip have healed, there is a possibility that the hip prosthesis could dislocate. A. Observe the following precautions to prevent dislocation: 1. Don't bend your hip greater than 90 degrees. 2. Avoid crossing your legs or ankles while standing or lying. 3. Sit with your feet placed 6 inches apart. 4. When sitting, keep your knees below your hips. Sit on a firm surface, avoid deep, soft chairs and couches. Use an elevated toilet seat in the bathroom. 5. Don't bend over at the waist. Use a long handled shoehorn and a sock aid to help you put on your shoes and socks. A fats and oils loader can help you brain picker objects that are too high or too low to reach. 6. Keep car riding to a minimum for at least one month after surgery. B. Your balance may be shaky for a while. Use crutches or a walker until directed by your doctor. C. Use hand rails when walking on stairs. D. Wear low heeled shoes with non-slip soles. E. Be sure that your floors are free of things that could trip you - throw rugs, electrical cords, small objects. Avoid wet and waxed floors, especially with crutches and canes. F. Try to walk several times a day with rest periods between. G. Continue with all the exercises taught to you in the hospital. Again, make walking a part of your daily routine. VERY IMPORTANT TO READ AND REVIEW A. Take Coumadin, or Lovenox (blood thinning medications) as directed by your doctor. If you are on Coumadin, have a pro-time (blood test) drawn according to your doctor's instructions. This will tell the doctor how well the Coumadin is thinning your blood. If you are on Lovenox you will have a CBC drawn on the first Thursday after your surgery. B. There are a few signs you need to watch for after you are home. If you notice any of the followin. Increased severe hip pain. Some pain is expected especially when you exercise. 2. Increased swelling in your leg or knee; pain or swelling of the calf muscle in either lower leg. 3. Any fluid drainage from the incision. 4. Shortness of breath or chest pain. Bloodwork * Get CBC performed on 07/02/20. Please copy results to Dr. Rivera at fax number [phone] TEDs/Elastic Stockings: * The white elastic stockings help limit swelling and prevent blood clots from forming in your legs. The more you wear them, the more they work. * Wear them for six weeks. Prevention of Infection: * Take antibiotics one hour before any dental cleaning, dental work, urological procedure, gastrointestinal procedure or any invasive surgery in order to prevent your new joint from getting infected. * You may get the antibiotics from the doctor performing the procedure or we will call in a prescription to the pharmacy of your choice. Call the office for a prescription at least 2 days prior to your appointment. Things to Watch For: * Drainage from the incision site that occurs more than one week after your surgery. * Severely increased leg pain or swelling. * Increased redness at the incision site. * Fever above 101 degrees Fahrenheit. * Unusual chest pain or shortness of breath. * Unusual pain or burning with urination.
== END 2020-07-02 13:05 ==
LOC: ASU 09:47 → 3N 09:47

== ENCOUNTER 2020-07-15 20:00 | Inpatient (IN) ==
[2020-07-15] MEDS ORDERED: ONDANSETRON INJ 2 MG/ML 2 ML VIAL IV STA (20:21)
[2020-07-15] MEDS ORDERED: SODIUM CHLORIDE 0.9% 500 ML IV STA (20:21)
--- NOTE | 2020-07-15 20:27 | Emergency Department Note ---
History of Present Illness General Chief complaint: Illness Stated complaint: NAUSEA, DIZZINESS Time Seen by Provider: 07/15/20 20:13 Source: patient History of Present Illness Provider complaint: Dizziness Onset (ago): day(s) 4 Location: head Pain Consistency: + constant Quality: + other (Lightheadedness) Exacerbated By: + other (Standing) Associated symptoms: + cough, + fever/chills, + malaise and + nausea/vomiting; no chest pain and no shortness of breath This is a 69-year-old female who presents with dizziness and nausea for the past 4 to 5 days. Patient states that she had hip replacement on the of this month. She was at [facility] and discharged about 8 days ago. She subsequently developed diarrhea which she had for about 4 days and got better with Imodium. She developed nausea and cough 4 to 5 days ago. She states that she has no chest pain or shortness of breath but when she takes deep breaths it makes her cough. She did have a negative Covid test before her operation on the . She denies any loss of taste or smell. She denies abdominal pain or urinary symptoms. She states that she feels lightheaded when she stands up. She does admit that she has not been eating or drinking very much over the past 4 to 5 days due to her nausea. She does state that she had a low-grade temperature of 100. She does feel her hip is healing well. Home Medications Medication Instructions Recorded Confirmed Type multivitamin 1 tab PO QAM 09/28/19 07/15/20 History lisinopril 10 mg tablet 15 mg PO QAM tab 03/02/20 07/15/20 History acetaminophen 1,000 mg PO Q8H PRN 07/15/20 07/15/20 History enoxaparin 40 mg SUBCUT DAILY 07/15/20 07/15/20 History ergocalciferol (vitamin D2) 50,000 unit PO WK 07/15/20 07/15/20 History tramadol 50 - 100 mg PO Q6H PRN 07/15/20 07/15/20 History Allergies Allergy/AdvReac Type Severity Reaction Status Date / Time No Known Allergies Allergy Verified 07/15/20 21:31 Past Med/Surg History Medical History Anemia Arthritis of spine Bowel habit changes URGENCY - R/T TO CHEMO AND RADIATION -- doing better currently Dry mouth RESIDUAL EFFECT FROM CHEMO AND RADIATION Fracture, hip unsure of how and was found on xray History of anal cancer HAD CHEMO AND RADIATION - [address] [facility]; Hypertension Surgical History History of lumbar spinal fusion chronic back pain History of open reduction and internal fixation (ORIF) procedure RIGHT ELBOW History of vascular access device MEDIPORT IN PLACE - has flushed every 6 weeks Hx of knee surgery left X4; ONE SURGERY FOR PATELLA REMOVAL Family History Mother Family history of diabetes mellitus Sister Family history of diabetes mellitus Social History Smoking Status: Never smoker Second Hand Exposure: No; Hx Alcohol Use: Yes Alcohol type: wine Hx Substance Use: No Preferred Language: Chilean Communication Ability: Effective [employer] Consultant Required: No Beliefs That Will Affect Care: None marital status: Single Current Living Situation: Alone Current Living Situation Comment: sister will stay with her Feels Safe at Home: Yes Assistive Devices: Walker Review of Systems See HPI for pertinent positives & negatives. and A total of 10 systems reviewed and were otherwise negative Physical Exam Vital Signs Vital Signs - 24 hr 07/15/20 20:00 07/15/20 20:46 07/15/20 21:31 Temperature 38.3 C H Temperature Source Oral Pulse Rate 82 88 84 Pulse Rate from SpO2 Sensor 88 85 Pulse Rhythm Regular Pulse Strength Normal Respiratory Rate 26 H 23 27 H Respiratory Effort / Characteristics Non-Labored Spontaneous Respiratory Depth Normal Respiratory Pattern Regular Blood Pressure 120/82 120/82 111/84 Blood Pressure Mean 94 102 101 Blood Pressure Position Lying Pulse Oximetry 86 L 86 L 93 Oxygen Delivery Method Room Air Room Air Nasal Cannula Oxygen Flow Rate 2 Sepsis Recent Fever Within 48 Hours Yes Sepsis New/Unexplained Change in Mental Status N/A Sepsis Action Taken by Nursing Physician Notified 07/15/20 22:00 Temperature Temperature Source Pulse Rate 82 Pulse Rate from SpO2 Sensor 82 Pulse Rhythm Pulse Strength Respiratory Rate 20 Respiratory Effort / Characteristics Respiratory Depth Respiratory Pattern Blood Pressure 142/85 H Blood Pressure Mean 103 Blood Pressure Position Pulse Oximetry 96 Oxygen Delivery Method Nasal Cannula Oxygen Flow Rate 2 Sepsis Recent Fever Within 48 Hours Sepsis New/Unexplained Change in Mental Status Sepsis Action Taken by Nursing Constitutional: Vital signs reviewed. Eyes: Pupils are equal round reactive to light. Conjunctiva are noninjected. ENT: Pharynx is clear without erythema or exudate. Mucous membranes are dry. Neck supple without meningeal signs. Respiratory: Clear to auscultation bilaterally. Breath sounds are equal bilaterally. Cardiovascular: Regular rate and rhythm. No rubs or gallops. GI: Soft, nondistended and nontender. Bowel sounds are present. Musculoskeletal: Well-healed incision to the right hip without erythema or drainage. No lower extremity tenderness. Integumentary: No cyanosis. or jaundice. Neurological: The patient is awake and alert. No focal deficits. Psychiatric: Normal affect. Not anxious appearing. Course Administered Medications Discontinued Medications Dexamethasone (Dexamethasone Sod Inj 10 Mg/Ml Vial) 6 mg IV NOW ONE Stop: 07/15/20 22:35 Last Admin: 07/15/20 23:15 Dose: 6 mg Documented by: [id number] Sodium Chloride (Nss) 500 mls @ 999 mls/hr IV .Q31M STA Stop: 07/15/20 20:51 Last Infusion: 07/15/20 22:01 Dose: 0 mls/hr Documented by: [id number] Admin: 07/15/20 21:15 Dose: 999 mls/hr Documented by: [id number] Ioversol (Optiray 320 125ml) 120 ml IV ONCE ONE Stop: 07/15/20 22:26 Last Admin: 07/15/20 22:26 Dose: 120 ml Documented by: [id number] Ondansetron HCl (Ondansetron Inj 2 Mg/Ml 2 Ml Vial) 4 mg IV NOW STA Stop: 07/15/20 20:22 Last Admin: 07/15/20 21:10 Dose: 4 mg Documented by: [id number] Medical Decision Making Differential Diagnosis Dehydration, gastroenteritis, COVID-19, pneumonia, bronchitis, anemia Medical Records Attestation: I reviewed the patient's medical records. I did perform a limited focused review of portions of the patient's old chart on the electronic medical record. The patient underwent right hemiarthroplasty of the right hip on June 28. Home Medications Current Medication List: was personally reviewed by me Laboratory Data Attestation: I reviewed the patient's lab results. Result diagrams: 07/15/20 21:00 07/15/20 21:00 Lab Results 07/15/20 07/15/20 07/15/20 Range/Units 21:00 21:00 21:00 WBC 8.57 (4.8-10.8) K/uL RBC 3.48 L (4.2-5.4) M/uL Hgb 10.6 L (12.0-16.0) g/dL Hct 33.1 L (37-47) % MCV 95.1 (80-100) fL MCH 30.5 (25-34) pg MCHC 32.0 (32-36) g/dL RDW Std Deviation 51.1 H (36.4-46.3) fL RDW Coeff of Anthony 14.7 H (11.5-14.5) % Plt Count 545 H (130-400) K/uL MPV 8.6 (7.4-10.4) fL Immature Gran % (Auto) 0.1 % Neut % (Auto) 83.0 % Lymph % (Auto) 7.8 % Burke % (Auto) 9.0 % Eos % (Auto) 0.0 % Baso % (Auto) 0.1 % Neut # (Auto) 7.11 H (1.4-6.5) K/uL Lymph # (Auto) 0.67 L (1.2-3.4) K/uL Burke # (Auto) 0.77 H (0.11-0.59) K/uL Eos # (Auto) 0.00 (0-0.5) K/uL Baso # (Auto) 0.01 (0-0.2) K/uL Immature Gran # (Auto) 0.01 (0.00-0.02) K/uL PT 11.6 (9.0-12.0) Seconds INR 1.1 (0.9-1.1) APTT 29.5 (21.0-31.0) Seconds PTT Ratio 1.1 D-Dimer 2370 H* (0-500) ug/L FEU Sodium 136 (136-145) mmol/L Potassium 3.9 (3.5-5.1) mmol/L Chloride 102 (98-107) mmol/L Carbon Dioxide 23 (21-32) mmol/L Anion Gap 11.0 (3-11) BUN 33 H (7-18) mg/dl Creatinine 1.39 H (0.6-1.2) mg/dl Est Cr Clr Drug Dosing Not Reportable Est GFR ( Amer) 45.0 Est GFR (Non-Af Amer) 38.8 BUN/Creatinine Ratio 23.5 H (10-20) Glucose 108 H (70-99) mg/dl Lactate (0.4-2.0) mmol/L Calcium 9.4 (8.5-10.1) mg/dl Total Bilirubin 0.4 (0.2-1) mg/dl AST 50 H (15-37) U/L ALT 39 (12-78) U/L Alkaline Phosphatase 106 (45-117) U/L Troponin I < 0.015 (0-0.045) ng/ml Total Protein 8.2 (6.4-8.2) gm/dl Albumin 3.3 L (3.4-5.0) gm/dl Globulin 4.9 H (2.5-4.0) gm/dl Albumin/Globulin Ratio 0.7 L (0.9-2) COVID-19 Eval Order SARS-CoV-2, RNA, NAAT (NEGATIVE) 07/15/20 07/15/20 07/15/20 Range/Units 21:00 21:00 21:00 WBC (4.8-10.8) K/uL RBC (4.2-5.4) M/uL Hgb (12.0-16.0) g/dL Hct (37-47) % MCV (80-100) fL MCH (25-34) pg MCHC (32-36) g/dL RDW Std Deviation (36.4-46.3) fL RDW Coeff of Anthony (11.5-14.5) % Plt Count (130-400) K/uL MPV (7.4-10.4) fL Immature Gran % (Auto) % Neut % (Auto) % Lymph % (Auto) % Burke % (Auto) % Eos % (Auto) % Baso % (Auto) % Neut # (Auto) (1.4-6.5) K/uL Lymph # (Auto) (1.2-3.4) K/uL Burke # (Auto) (0.11-0.59) K/uL Eos # (Auto) (0-0.5) K/uL Baso # (Auto) (0-0.2) K/uL Immature Gran # (Auto) (0.00-0.02) K/uL PT (9.0-12.0) Seconds INR (0.9-1.1) APTT (21.0-31.0) Seconds PTT Ratio D-Dimer (0-500) ug/L FEU Sodium (136-145) mmol/L Potassium (3.5-5.1) mmol/L Chloride (98-107) mmol/L Carbon Dioxide (21-32) mmol/L Anion Gap (3-11) BUN (7-18) mg/dl Creatinine (0.6-1.2) mg/dl Est Cr Clr Drug Dosing Est GFR ( Amer) Est GFR (Non-Af Amer) BUN/Creatinine Ratio (10-20) Glucose (70-99) mg/dl Lactate 1.7 (0.4-2.0) mmol/L Calcium (8.5-10.1) mg/dl Total Bilirubin (0.2-1) mg/dl AST (15-37) U/L ALT (12-78) U/L Alkaline Phosphatase (45-117) U/L Troponin I (0-0.045) ng/ml Total Protein (6.4-8.2) gm/dl Albumin (3.4-5.0) gm/dl Globulin (2.5-4.0) gm/dl Albumin/Globulin Ratio (0.9-2) COVID-19 Eval Order Covid19 IDNow [facility], [facility]–1983 SARS-CoV-2, RNA, NAAT POSITIVE A* (NEGATIVE) Imaging Data Attestation: I personally reviewed and interpreted this imaging study as follows: My Impression: Chest x-ray per my interpretation shows bilateral diffuse infiltrates consistent with multifocal pneumonia Radiologist's Impression: Preliminary Findings Only See Final Report For Complete Findings CTA CHEST: Patchy widespread bilateral ground-glass infiltrates suspicious for viral pneumonia. No pleural effusion or pneumothorax. No pulmonary embolism. No thoracic aortic aneurysm or dissection. No pericardial effusion. No acute osseous findings. Radiologist: Onur Pappas M.D. Study ready at 22:40 and initial results transmitted at 22:50 ECG Data Attestation: I personally reviewed and interpreted this ECG as follows: Indication: + weakness Rate (beats per minute): 84 Rhythm: + normal sinus ECG Intervals/blocks: + Normal QRS ECG ST segments: no ST elevation ECG Findings: no PVCs MDM Narrative I did evaluate the patient as noted above. The patient is presenting with dizziness which she describes as lightheadedness starting several days ago. She has also had diarrhea as well as a cough. She denies any fever or abdominal pain or chest pain or even shortness of breath. Unfortunately her pulse ox here is in the high 80s on room air. She does not use oxygen at home. She did have a negative Covid test prior to her operation on the but has been at [facility] up until last week. Her port was accessed. She was given normal saline IV as well as Zofran 4 mg IV. She was placed on supplemental oxygen. She was placed in respiratory isolation. A COVID-19 test was ordered. I did place an order for continuous cardiac monitoring. The monitor showed normal sinus rhythm at a rate of 84 bpm. I did order and personally review the patient's 12-lead EKG as described above. She has no evidence of acute ischemia. I did order and personally reviewed the images of the patient's chest x-ray as described above. Per my interpretation she appears to have a multifocal pneumonia. It is concerning for COVID-19. I did order and review the patient's blood work as noted in the electronic medical record. Her white blood cell count is not elevated. Hemoglobin is 10.6. This is up from 9.1 on July 02. D-dimer is 2370. Creatinine is 1.39. This is elevated above baseline and likely secondary to dehydration. Troponin is negative. Covid testing is positive. I did order a CT angiogram of the chest. I did review the images myself as well as the radiology report as described above. This did not demonstrate acute pulmonary embolism but she does have patchy widespread infiltrates consistent with COVID-19 pneumonia. She was informed of her test results. She will be hospitalized for further care and evaluation. I did give her Tessalon Perles for her cough as well as Tylenol for her fever. The case was discussed with the supportive employment case manager and the hospitalist was informed. Impression & Plan Hypoxemia, Pneumonia due to 2019 novel coronavirus, Elevated serum creatinine, Acute dehydration Discharge Plan Visit Data Chief Complaint: Illness Stated Complaint: NAUSEA, DIZZINESS ED Provider: Ashutosh Poole Discharge Problem: Hypoxemia, Pneumonia due to 2019 novel coronavirus, Elevated serum creatinine, Acute dehydration Patient Disposition: Being Evaluated by Hospitalist Forms Stand Alone Forms: My [facility] Prescriptions Prescriptions: No Action lisinopril 10 mg tablet 15 mg PO QAM RF: 0 multivitamin Tablet 1 tab PO QAM RF: 0 enoxaparin 40 mg/0.4 mL syringe 40 mg subcut DAILY RF: 0 tramadol 50 mg tablet 50 - 100 mg PO Q6H PRN (Reason: Pain) RF: 0 acetaminophen 500 mg tablet 1,000 mg PO Q8H PRN (Reason: Pain) RF: 0 ergocalciferol (vitamin D2) 1,250 mcg (50,000 unit) capsule 50,000 unit PO WK RF: 0 Referrals Referrals: Nathalie Rick CRNP [Primary Care Provider] -
[2020-07-15 21:15] LABS: Basophils # (auto) 0.01 K/uL (0-0.2); Basophils % (auto) 0.1 %; Hematocrit (blood only) 33.1 % (37-47); Hemoglobin 10.6 g/dL (12.0-16.0); Immature Granulocytes # (auto) 0.01 K/uL (0.00-0.02); Immature Granulocytes % (auto) 0.1 %; Lymphocytes # (auto) 0.67 K/uL (1.2-3.4); Lymphocytes % (auto) 7.8 %; Mean Corpuscular Hemoglobin 30.5 pg (25-34); Mean Corpuscular Volume 95.1 fL (80-100); Mean Platelet Volume 8.6 fL (7.4-10.4); Monocytes # (auto) 0.77 K/uL (0.11-0.59); Neutrophils # (auto) 7.11 K/uL (1.4-6.5); Platelet Count 545 K/uL (130-400); RDW Coefficient of Variation 14.7 % (11.5-14.5); RDW Standard Deviation 51.1 fL (36.4-46.3); Red Blood Count 3.48 M/uL (4.2-5.4); White Blood Count 8.57 K/uL (4.8-10.8)
[2020-07-15 21:25] LABS: INR 1.1 (0.9-1.1); Partial Thromboplastin Ratio 1.1; Partial Thromboplastin Time 29.5 Seconds (21.0-31.0); Prothrombin Time 11.6 Seconds (9.0-12.0)
[2020-07-15 21:28] LABS: D Dimer 2370 ug/L FEU (0-500)
[2020-07-15 21:37] LABS: Alanine Aminotransferase 39 U/L (12-78); Albumin Level 3.3 gm/dl (3.4-5.0); Aspartate Aminotransferase 50 U/L (15-37); BUN Creatinine Ratio 23.5 (10-20); Blood Urea Nitrogen 33 mg/dl (7-18); Calcium 9.4 mg/dl (8.5-10.1); Carbon Dioxide 23 mmol/L (21-32); Chloride 102 mmol/L (98-107); Est GFR (Non-African American) 38.8; Glucose 108 mg/dl (70-99); Potassium 3.9 mmol/L (3.5-5.1); Sodium 136 mmol/L (136-145)
[2020-07-15 21:41] LABS: Albumin Globulin Ratio 0.7 (0.9-2); Alkaline Phosphatase 106 U/L (45-117); Bilirubin,Total 0.4 mg/dl (0.2-1); Globulin 4.9 gm/dl (2.5-4.0); Total Protein 8.2 gm/dl (6.4-8.2); Troponin I < 0.015 ng/ml (0-0.045)
[2020-07-15] MEDS ORDERED: OPTIRAY 320 125ml IV ONE (22:25)
[2020-07-15] MEDS ORDERED: DEXAMETHASONE SOD INJ 10 MG/ML VIAL IV ONE (22:34)
[2020-07-15] MEDS ORDERED: ACETAMINOPHEN 325 MG TAB PO STA (23:16)
[2020-07-15] MEDS ORDERED: BENZONATATE 100 MG CAPSULE PO ONE (23:16)
[2020-07-16] MEDS ORDERED: ACETAMINOPHEN 500 MG TAB PO PRN (00:58)
[2020-07-16] MEDS ORDERED: ONDANSETRON INJ 2 MG/ML 2 ML VIAL IV PRN (00:58)
[2020-07-16] MEDS ORDERED: REMDESIVIR 200 MG in SODIUM CHLORIDE 0.9% 210 ML IV ONE (02:00)
--- NOTE | 2020-07-16 02:15 | History & Physical Report ---
Date of Service July 16, 2020 Assessment & Plan (1) Hypoxemia: Xena Mckeon is a 69 year old woman with PMH of anal cancer, hypertension osteoathritis and spinal fusion and recent hip fracture with replacement on the of this month who presents with diarrhea fevers and chills for five days duration who is COVID positive today COVID 19 pneumonia Evidence of COVID 19 pneumonia on imaging, elevated D dimer CTA negative, Hypoxemic respiratory failure saturating well on 2 L Will treat with dexamethasone 6 mg daily for 10 days or until discharge at which time dexamethasone can be discontinued As symptoms have been present for 5 days and patient has good renal function we will also treat with remdesivir therapy and continue to check daily labs for side effects. Admitting with isolation precautions to [facility] Will cotinue to monitor closely, patient could very well get worse before she starts to get better COLLIN Likely pre renal from diarrhea and dehydration LR 100 mls/hour for now, repeat BMP in am HTN BP stable, not septic will continue home lisinopril Chronic Pain Will continue home tramadol DVT PPx: Lovenox Continuing from home F/E/N: Regular diet Dispo: Admit for supplmental O2 steroid and remdesivir therapy COnditional Code, does not want to be intubated but would want anything else (2) Elevated serum creatinine: (3) Pneumonia due to 2019 novel coronavirus: (4) Acute dehydration: Admission and Anticipated Discharge Date Admission Date: July 16, 2020 History of Present Illness Chief Complaint: Diarrhea, weakness, body aches, cough Primary Care Provider: WILLIAM Wynne Xena Mckeon is a 69 year old woman with a past medical history significant for anal cancer currently in remission, HTN, and recently broken hip with replacement on the of this month who presents with five days of fever, body aches, fatigue and diarrhea. She has had continuing diarrhea and weakness and has had trouble even getting around her house to perform ADL's she has not felt short of breath but she has had a cough particularly with deep inspiration. She has been trying to coordinate care through home health but she has become too weak to continue to rehab her hip at home and she decided to come into the emergency department for further evaluation. In ED patient was found to by hypoxic on room air and is saturating well on 2 L O2 via nasal cannula now, COVID testing was positive, BUN and creatinine elevated, platelets slightly elevated D Dimer elevated to 2370, chest x ray and CTA chest showing extensive bilateral viral pneumonia, no evidence of PE. Was given 6 mg dexamethasone and tylenol in ED. Non smoker, very occasional glass of wine drinker, no drug use. Patient tells me she needs more time to think about this but for now would not want a breathing tube if her breathing were to deteriorate though she would want to have attempted CPR if she had a cardiac arrest. Allergies Allergy/AdvReac Type Severity Reaction Status Date / Time No Known Allergies Allergy Verified 07/15/20 21:31 Home Medications Medication Instructions Recorded Confirmed Type multivitamin 1 tab PO QAM 09/28/19 07/15/20 History lisinopril 10 mg tablet 15 mg PO QAM tab 03/02/20 07/15/20 History acetaminophen 1,000 mg PO Q8H PRN 07/15/20 07/15/20 History enoxaparin 40 mg SUBCUT DAILY 07/15/20 07/15/20 History ergocalciferol (vitamin D2) 50,000 unit PO WK 07/15/20 07/15/20 History tramadol 50 - 100 mg PO Q6H PRN 07/15/20 07/15/20 History Past Med/Surg History Medical History (Updated 07/16/20 @ 20:54 by Nadine Ruiz MD) Arthritis of spine Bowel habit changes URGENCY - R/T TO CHEMO AND RADIATION -- doing better currently Dry mouth RESIDUAL EFFECT FROM CHEMO AND RADIATION Fracture, hip unsure of how and was found on xray History of anal cancer HAD CHEMO AND RADIATION - 2018 [facility]ATED [facility]; Hypertension Surgical History (Updated 07/16/20 @ 20:54 by Nadine Ruiz MD) History of lumbar spinal fusion chronic back pain History of open reduction and internal fixation (ORIF) procedure RIGHT ELBOW History of right hip hemiarthroplasty History of vascular access device MEDIPORT IN PLACE - has flushed every 6 weeks Hx of knee surgery left X4; ONE SURGERY FOR PATELLA REMOVAL Family History Mother Family history of diabetes mellitus Sister Family history of diabetes mellitus Social History Smoking Status: Never smoker Second Hand Exposure: No; Hx Alcohol Use: Yes Alcohol type: wine Hx Substance Use: No Preferred Language: Ugandan Communication Ability: Effective Broom Builder Required: No Beliefs That Will Affect Care: None marital status: Single Current Living Situation: Alone Current Living Situation Comment: sister will stay with her Feels Safe at Home: Yes Assistive Devices: Glasses and Oxygen - Continuous Review of Systems Review of Systems: All systems reviewed & are unremarkable except as noted in HPI & below Physical Exam Constitutional: well developed, well nourished, cooperative and comfortable; no acute distress and no altered mental status Eyes: PERRL, conjunctivae normal, anicteric sclerae ENMT: external ear and nose normal, oropharynx normal Respiratory: normal respiratory effort; no respiratory distress Auscultation: + rhonchi; no wheezes Cardiovascular: Rate/Rhythm: regular rate and regular rhythm Heart Sounds: no click, no gallop, no murmur and no cardiac rub Vessels: no JVD Extremities: no calf tenderness and no edema Gastrointestinal (Abdomen): normal bowel sounds, soft, nontender, no hepatosplenomegaly Musculoskeletal: Patient with intact strength and sensation, right leg a couple inches longer than left leg Skin: no rashes, warm and dry Results & Data Results & Data ([facility]) Vital Signs (Past 12 Hours) Vital Signs Temp Pulse Pulse Resp BP BP Pulse Ox 07/16/20 01:01 07/16/20 01:00 72 27 H 101/62 99 07/16/20 00:11 79 26 H 113/76 98 07/16/20 00:10 37.8 C H 07/15/20 23:24 37.9 C H 86 24 93 07/15/20 23:19 91 H 32 H 126/83 93 07/15/20 22:00 82 20 142/85 H 96 07/15/20 21:31 84 27 H 111/84 93 07/15/20 20:46 88 23 120/82 86 L 07/15/20 20:00 38.3 C H 82 26 H 120/82 86 L Pulse Ox 07/16/20 01:01 99 07/16/20 01:00 07/16/20 00:11 07/16/20 00:10 07/15/20 23:24 07/15/20 23:19 07/15/20 22:00 07/15/20 21:31 07/15/20 20:46 07/15/20 20:00 Code Status & VTE Plan VTE Prophylaxis Plan VTE Prophylaxis will be ordered: Yes Supervising Physician Co-Signing Physician Notes Attending addendum: I have physically seen this patient, have supervised the medical residents activities, and agree with the H&P unless as otherwise noted. Assessment and Plan: Pneumonia due to COVID-19 virus with hypoxemia- Dexamethasone 6 mg IV daily Zinc sulfate turn 20 mg p.o. daily Ventolin HFA 2 puffs 4 times daily, and every 2 hours as needed Respiratory isolation Acute kidney injury- Creatinine 1.39 upon admission, with baseline 1.[address] Place on LR at 100 mils per hour. Repeat BMP and magnesium level in a.m. Hypertension- Hold lisinopril until acute kidney injury resolved Chronic pain syndrome- Continue tramadol as per home dosing Remainder of orders and notations as noted Resident Activity Tracking Resident Involvement: Resident Care Provided Care Provided: Adult Hospital Medicine
[2020-07-16] MEDS: LACTATED RINGER'S 1,000 ML IV SCH ×3 (02:48→23:33)
[2020-07-16] MEDS: SODIUM CHLORIDE 0.9% 10ML FLUSH IV SCH (04:01)
--- NOTE | 2020-07-16 07:30 | XRay Report ---
XR chest 1V portable HISTORY: 69 years-old Female cough eval for pna acute cough COMPARISON: CTA of the chest of same day TECHNIQUE: Portable AP view of the chest FINDINGS: Cardiac silhouette is mildly enlarged. Left IJ [id number] catheter distal tip terminates within th e expected location of the inferior SVC. No pneumothorax or pleural effusion. Patchy ill-defined bila teral pulmonary opacities. Bones appear grossly intact. Sigmoidal thoracolumbar scoliosis. IMPRESSION: Patchy bilateral pulmonary opacities are suggestive of multifocal pneumonia. ACT 112: Negative or not required by law. The above report was generated using voice recognition software. It may contain grammatical, syntax o r spelling errors. Electronically signed by: Duane Partida M.D. 07/16/2020 7:29 AM
[2020-07-16] MEDS: MULTIVITAMIN TAB PO SCH (07:35)
[2020-07-16] MEDS: lisinopril 5 MG TAB PO SCH (07:35)
[2020-07-16] MEDS: dexAMETHasone 6 MG in SYRINGE 0 ML IV SCH (07:36)
--- NOTE | 2020-07-16 08:03 | CT Scan Report ---
CT ANGIOGRAM OF THE CHEST CLINICAL HISTORY: hypoxia eval for PE COMPARISON STUDY: 06/22/2020 TECHNIQUE: Following the IV administration of 120 mL of Optiray-320, CT angiogram of the thorax was p erformed from the thoracic inlet to the lung bases utilizing the pulmonary embolus protocol. Images a re reviewed in the axial, sagittal, and coronal planes. IV contrast was administered without complica tion. MIP imaging was performed. A dose lowering technique was utilized adhering to the principles o f ALARA. CT DOSE: 541.75 mGy.cm FINDINGS: No pathologically enlarged axillary mediastinal or hilar lymph nodes were visualized. There was no evidence of thoracic aortic dilatation. There were no pulmonary artery filling defects to indicate acute pulmonary embolism. No pleural effusions are visualized. There are multifocal groundglass pulmonary opacities. The findings are consistent with although not s pecific for Covid 19 pneumonia. IMPRESSION: 1. No evidence of acute pulmonary embolism 2. Bilateral groundglass pulmonary opacities consistent with a multifocal pneumonia likely viral ACT 112: Negative or not required by law. Electronically signed by: Ihsan Caraballo M.D. 07/16/2020 8:01 AM
[2020-07-16] MEDS ORDERED: ENOXAPARIN INJ 40 MG/0.4 ML SYR SQ SCH (09:00)
[2020-07-16 13:48] LABS: Hematocrit (blood only) 29.1 % (37-47); Hemoglobin 9.4 g/dL (12.0-16.0); Immature Granulocytes # (auto) 0.02 K/uL (0.00-0.02); Immature Granulocytes % (auto) 0.4 %; Lymphocytes # (auto) 0.45 K/uL (1.2-3.4); Lymphocytes % (auto) 8.3 %; Mean Corpuscular Hemoglobin 30.3 pg (25-34); Mean Corpuscular Hgb Conc 32.3 g/dL (32-36); Mean Corpuscular Volume 93.9 fL (80-100); Mean Platelet Volume 8.6 fL (7.4-10.4); Monocytes # (auto) 0.32 K/uL (0.11-0.59); Monocytes % (auto) 5.9 %; Neutrophils # (auto) 4.66 K/uL (1.4-6.5); Neutrophils % (auto) 85.4 %; Platelet Count 468 K/uL (130-400); RDW Coefficient of Variation 14.6 % (11.5-14.5); RDW Standard Deviation 50.3 fL (36.4-46.3); White Blood Count 5.45 K/uL (4.8-10.8)
[2020-07-16 14:15] LABS: Albumin Level 2.6 gm/dl (3.4-5.0); BUN Creatinine Ratio 27.2 (10-20); Creatinine Clr Calc Pharmacy 30.2 ml/min; Est GFR (African American) 44.3; Est GFR (Non-African American) 38.2; Magnesium 2.2 mg/dl (1.8-2.4); Potassium 4.1 mmol/L (3.5-5.1)
[2020-07-16 14:25] LABS: Albumin Globulin Ratio 0.6 (0.9-2); Bilirubin,Total 0.2 mg/dl (0.2-1); Globulin 4.1 gm/dl (2.5-4.0); Total Protein 6.7 gm/dl (6.4-8.2)
--- NOTE | 2020-07-16 18:27 | Electrocardiogram Report ---
Test Reason : Blood Pressure : / mmHG Vent. Rate : 084 BPM Atrial Rate : 084 BPM P-R Int : 140 ms QRS Dur : 066 ms QT Int : 346 ms P-R-T Axes : 024 -11 023 degrees QTc Int : 408 ms Poor data quality, interpretation may be adversely affected Normal sinus rhythm When compared with ECG of 04-OCT-2019 09:00, Nonspecific T wave abnormality now evident in Anterior leads QT has shortened Confirmed by George Rashid ([id number]) on 07/16/2020 6:27:14 PM Referred By: REFERRED SELF Confirmed By:Fredy Rashid
[2020-07-16] MEDS ORDERED: guaiFENesin/CODEINE 100MG/10MG 5ML UDC PO PRN (19:53)
--- NOTE | 2020-07-16 20:45 | Hospitalist Progress Note ---
Date of Service July 16, 2020 Assessment & Plan (1) Hypoxemia: Xena Mckeon is a 69 year old woman with PMH of anal cancer, hypertension, osteoathritis and spinal fusion and recent right hip fracture with replacement on the of this month who presents with diarrhea fevers and chil ls, and cough with shortness of breath for five days duration who is COVID positive upon admission. Hypoxemia secondary to Covid-19 pneumonia Is requiring 4 L nasal cannula at rest, but having hypoxia down to 82% with coughing Evidence of pneumonia on imaging, elevated D dimer but CTA negative She has no history of chronic lung or cardiac disease -Continue to treat with dexamethasone 6 mg daily for 10 days -Continue remdesivir therapy x5-day course -Continue supplemental O2 to keep pulse ox greater than 92% -Add on guaifenesin with codeine for significant cough which causes worsening hypoxia (2) Pneumonia due to 2019 novel coronavirus: As above (3) Elevated serum creatinine: Acute kidney injury Likely pre renal from diarrhea and dehydration Creatinine today is stable at 1.41 from previous Continue LR 100 mls/hour for now, repeat BMP in am Encourage p.o. intake which she is now tolerating (4) Acute dehydration: As above, secondary to diarrhea Hydrating with IV fluids (5) History of right hip hemiarthroplasty: Had right hip hemiarthroplasty performed on 06/28 PT/OT consults placed-she is allowed to weight-bear as tolerated Posterior hip precautions Continue Lovenox 30 mg SQ twice daily for DVT prophylaxis, also add SCDs Steri-Strips still in place over the wound We will need to see when she is to follow-up with orthopedic surgery Tramadol as needed for pain (6) Hypertension: Blood pressures are stable Continue home lisinopril (7) Anemia: Hemoglobin 9.4, normocytic Did have recent hip surgery Check iron studies, folate, B12, TSH in the morning Follow CBC (8) Thrombocytosis: Platelets elevated at 545 on admission and now trending downward Secondary to acute phase reactant with acute illness Follow CBC (9) DVT prophylaxis: Increase Lovenox to 30 mg SQ twice daily which is the dose recommended by orthopedic surgery after recent hip surgery Add SCDs Disposition-continued stay on telemetry COnditional Code, does not want to be intubated but would want anything else Admission and Anticipated Discharge Date Admission Date: July 16, 2020 Subjective Patient reports a bad cough and requests cough syrup with codeine. She reports she took the oxygen off to walk to the bathroom and by the time got to the bathroom she was gasping for air. She reports her GI symptoms are improving and she was able to eat food today for the first time in a while. Denies diarrhea. She denies chest pains, abdominal pains. Hip pain is controlled and she reports she is allowed to bear weight on it since her surgery. Review of Systems Review of Systems: All systems reviewed & are unremarkable except as noted in HPI & below Physical Exam Constitutional: WD/WN, vitals as above + acute distress (With minimal exertion became quite tachypneic) Eyes: + anicteric sclerae Neck: trachea midline, no thyromegaly Respiratory: + cough and + tachypneic Auscultation: + crackles (Bibasilar); no rhonchi and no wheezes Cardiovascular: RRR, no murmur, no edema Chest (Breasts): Chest: normal inspection of chest Gastrointestinal (Abdomen): normal bowel sounds, soft, nontender, no he patosplenomegaly Musculoskeletal: Extremities: + extremities abnormal to inspection (Right hip with Steri-Strips over incision in place), no cyanosis and no clubbing Skin: no rashes, warm and dry Neurologic: moves all extremities and awake; no focal motor deficits Psychiatric: A+Ox3, euthymic affect Lymphatic: no lymphedema Results & Data Results & Data ([facility]) Vital Signs (Past 12 Hours) Vital Signs Temp Pulse Resp BP Pulse Ox 07/16/20 16:00 36.7 C 76 18 128/66 91 Laboratory Results 07/16/20 07/16/20 07/15/20 Range/Units 13:33 13:33 21:00 WBC 5.45 (4.8-10.8) K/uL RBC 3.10 L (4.2-5.4) M/uL Hgb 9.4 L (12.0-16.0) g/dL Hct 29.1 L (37-47) % MCV 93.9 (80-100) fL MCH 30.3 (25-34) pg MCHC 32.3 (32-36) g/dL RDW Std Deviation 50.3 H (36.4-46.3) fL RDW Coeff of Anthony 14.6 H (11.5-14.5) % Plt Count 468 H (130-400) K/uL MPV 8.6 (7.4-10.4) fL Immature Gran % (Auto) 0.4 % Neut % (Auto) 85.4 % Lymph % (Auto) 8.3 % [place] % (Auto) 5.9 % Eos % (Auto) 0.0 % Baso % (Auto) 0.0 % Neut # (Auto) 4.66 (1.4-6.5) K/uL Lymph # (Auto) 0.45 L (1.2-3.4) K/uL [place] # (Auto) 0.32 (0.11-0.59) K/uL Eos # (Auto) 0.00 (0-0.5) K/uL Baso # (Auto) 0.00 (0-0.2) K/uL Immature Gran # (Auto) 0.02 (0.00-0.02) K/uL PT (9.0-12.0) Seconds INR (0.9-1.1) APTT (21.0-31.0) Seconds PTT Ratio D-Dimer (0-500) ug/L FEU Sodium 139 (136-145) mmol/L Potassium 4.1 (3.5-5.1) mmol/L Chloride 108 H (98-107) mmol/L Carbon Dioxide 22 (21-32) mmol/L Anion Gap 9.0 (3-11) BUN 38 H (7-18) mg/dl Creatinine 1.41 H (0.6-1.2) mg/dl Est Cr Clr Drug Dosing 30.2 Est GFR ( Amer) 44.3 Est GFR (Non-Af Amer) 38.2 BUN/Creatinine Ratio 27.2 H (10-20) Glucose 140 H (70-99) mg/dl Lactate (0.4-2.0) mmol/L Calcium 9.0 (8.5-10.1) mg/dl Magnesium 2.2 (1.8-2.4) mg/dl Total Bilirubin 0.2 (0.2-1) mg/dl AST 43 H (15-37) U/L ALT 36 (12-78) U/L Alkaline Phosphatase 83 (45-117) U/L Troponin I (0-0.045) ng/ml Total Protein 6.7 (6.4-8.2) gm/dl Albumin 2.6 L (3.4-5.0) gm/dl Globulin 4.1 H (2.5-4.0) gm/dl Albumin/Globulin Ratio 0.6 L (0.9-2) COVID-19 Eval Order SARS-CoV-2, RNA, NAAT POSITIVE A* (NEGATIVE) 07/15/20 07/15/20 07/15/20 Range/Units 21:00 21:00 21:00 WBC (4.8-10.8) K/uL RBC (4.2-5.4) M/uL Hgb (12.0-16.0) g/dL Hct (37-47) % MCV (80-100) fL MCH (25-34) pg MCHC (32-36) g/dL RDW Std Deviation (36.4-46.3) fL RDW Coeff of Anthony (11.5-14.5) % Plt Count (130-400) K/uL MPV (7.4-10.4) fL Immature Gran % (Auto) % Neut % (Auto) % Lymph % (Auto) % [place] % (Auto) % Eos % (Auto) % Baso % (Auto) % Neut # (Auto) (1.4-6.5) K/uL Lymph # (Auto) (1.2-3.4) K/uL [place] # (Auto) (0.11-0.59) K/uL Eos # (Auto) (0-0.5) K/uL Baso # (Auto) (0-0.2) K/uL Immature Gran # (Auto) (0.00-0.02) K/uL PT 11.6 (9.0-12.0) Seconds INR 1.1 (0.9-1.1) APTT 29.5 (21.0-31.0) Seconds PTT Ratio 1.1 D-Dimer 2370 H* (0-500) ug/L FEU Sodium (136-145) mmol/L Potassium (3.5-5.1) mmol/L Chloride (98-107) mmol/L Carbon Dioxide (21-32) mmol/L Anion Gap (3-11) BUN (7-18) mg/dl Creatinine (0.6-1.2) mg/dl Est Cr Clr Drug Dosing Est GFR ( Amer) Est GFR (Non-Af Amer) BUN/Creatinine Ratio (10-20) Glucose (70-99) mg/dl Lactate 1.7 (0.4-2.0) mmol/L Calcium (8.5-10.1) mg/dl Magnesium (1.8-2.4) mg/dl Total Bilirubin (0.2-1) mg/dl AST (15-37) U/L ALT (12-78) U/L Alkaline Phosphatase (45-117) U/L Troponin I (0-0.045) ng/ml Total Protein (6.4-8.2) gm/dl Albumin (3.4-5.0) gm/dl Globulin (2.5-4.0) gm/dl Albumin/Globulin Ratio (0.9-2) COVID-19 Eval [facility] SARS-CoV-2, RNA, NAAT (NEGATIVE) 07/15/20 07/15/20 Range/Units 21:00 21:00 WBC 8.57 (4.8-10.8) K/uL RBC 3.48 L (4.2-5.4) M/uL Hgb 10.6 L (12.0-16.0) g/dL Hct 33.1 L (37-47) % MCV 95.1 (80-100) fL MCH 30.5 (25-34) pg MCHC 32.0 (32-36) g/dL RDW Std Deviation 51.1 H (36.4-46.3) fL RDW Coeff of Anthony 14.7 H (11.5-14.5) % Plt Count 545 H (130-400) K/uL MPV 8.6 (7.4-10.4) fL Immature Gran % (Auto) 0.1 % Neut % (Auto) 83.0 % Lymph % (Auto) 7.8 % [place] % (Auto) 9.0 % Eos % (Auto) 0.0 % Baso % (Auto) 0.1 % Neut # (Auto) 7.11 H (1.4-6.5) K/uL Lymph # (Auto) 0.67 L (1.2-3.4) K/uL [place] # (Auto) 0.77 H (0.11-0.59) K/uL Eos # (Auto) 0.00 (0-0.5) K/uL Baso # (Auto) 0.01 (0-0.2) K/uL Immature Gran # (Auto) 0.01 (0.00-0.02) K/uL PT (9.0-12.0) Seconds INR (0.9-1.1) APTT (21.0-31.0) Seconds PTT Ratio D-Dimer (0-500) ug/L FEU Sodium 136 (136-145) mmol/L Potassium 3.9 (3.5-5.1) mmol/L Chloride 102 (98-107) mmol/L Carbon Dioxide 23 (21-32) mmol/L Anion Gap 11.0 (3-11) BUN 33 H (7-18) mg/dl Creatinine 1.39 H (0.6-1.2) mg/dl Est Cr Clr Drug Dosing Not Reportable Est GFR ( Amer) 45.0 Est GFR (Non-Af Amer) 38.8 BUN/Creatinine Ratio 23.5 H (10-20) Glucose 108 H (70-99) mg/dl Lactate (0.4-2.0) mmol/L Calcium 9.4 (8.5-10.1) mg/dl Magnesium (1.8-2.4) mg/dl Total Bilirubin 0.4 (0.2-1) mg/dl AST 50 H (15-37) U/L ALT 39 (12-78) U/L Alkaline Phosphatase 106 (45-117) U/L Troponin I < 0.015 (0-0.045) ng/ml Total Protein 8.2 (6.4-8.2) gm/dl Albumin 3.3 L (3.4-5.0) gm/dl Globulin 4.9 H (2.5-4.0) gm/dl Albumin/Globulin Ratio 0.7 L (0.9-2) COVID-19 Eval Order SARS-CoV-2, RNA, NAAT (NEGATIVE) PG Care Time/CCT Total # of Minutes Spent Total Time Spent with Patient: Total time spent is greater than 50% in coordination of care (as documented) at patient's floor/unit and/or counseling patient: Coding Level of Care Code None Diagnoses Hypoxemia R09.02 Pneumonia due to 2019 novel coronavirus U07.1; J12.89 Elevated serum creatinine R79.89 Acute dehydration E86.0 History of right hip hemiarthroplasty Z96.641 Hypertension I10 Anemia D64.9 Thrombocytosis D47.3 DVT prophylaxis Z29.9
[2020-07-16] MEDS: REMDESIVIR 100 MG in SODIUM CHLORIDE 0.9% 230 ML IV SCH (21:07)
[2020-07-16] MEDS ORDERED: ALBUT/IPRATROP 3MG/0.5MG NEB 3 ML VIAL NEB STA (21:24)
[2020-07-16] MEDS: ENOXAPARIN INJ 30 MG/0.3 ML SYR SQ SCH (22:08)
[2020-07-17] MEDS: SODIUM CHLORIDE 0.9% 10ML FLUSH IV SCH (00:15)
[2020-07-17 08:06] LABS: Basophils # (auto) 0.01 K/uL (0-0.2); Basophils % (auto) 0.1 %; Hematocrit (blood only) 26.9 % (37-47); Hemoglobin 8.8 g/dL (12.0-16.0); Immature Granulocytes # (auto) 0.04 K/uL (0.00-0.02); Immature Granulocytes % (auto) 0.4 %; Lymphocytes # (auto) 0.79 K/uL (1.2-3.4); Lymphocytes % (auto) 7.1 %; Mean Corpuscular Hemoglobin 30.8 pg (25-34); Mean Corpuscular Hgb Conc 32.7 g/dL (32-36); Mean Corpuscular Volume 94.1 fL (80-100); Mean Platelet Volume 8.7 fL (7.4-10.4); Monocytes # (auto) 0.91 K/uL (0.11-0.59); Monocytes % (auto) 8.2 %; Neutrophils # (auto) 9.41 K/uL (1.4-6.5); Neutrophils % (auto) 84.2 %; Platelet Count 540 K/uL (130-400); RDW Coefficient of Variation 14.7 % (11.5-14.5); RDW Standard Deviation 50.4 fL (36.4-46.3); Red Blood Count 2.86 M/uL (4.2-5.4); White Blood Count 11.16 K/uL (4.8-10.8)
[2020-07-17 08:45] LABS: Albumin Globulin Ratio 0.6 (0.9-2); Albumin Level 2.5 gm/dl (3.4-5.0); BUN Creatinine Ratio 34.1 (10-20); Bilirubin,Total 0.3 mg/dl (0.2-1); C Reactive Protein 7.75 mg/dl (0-0.29); Calcium 8.8 mg/dl (8.5-10.1); Creatinine Clr Calc Pharmacy 40.9 ml/min; Est GFR (African American) 63.9; Est GFR (Non-African American) 55.2; Ferritin 714.6 ng/ml (8-388); Magnesium 2.1 mg/dl (1.8-2.4); Phosphorus 3.4 mg/dl (2.5-4.9); Potassium 3.9 mmol/L (3.5-5.1); Total Protein 6.5 gm/dl (6.4-8.2)
[2020-07-17 08:50] LABS: Thyroid Stimulating Hormone 0.522 uIu/ml (0.300-4.500)
[2020-07-17] MEDS: dexAMETHasone 6 MG in SYRINGE 0 ML IV SCH (09:06)
[2020-07-17] MEDS: ENOXAPARIN INJ 30 MG/0.3 ML SYR SQ SCH ×2 (09:06→20:34)
[2020-07-17] MEDS: MULTIVITAMIN TAB PO SCH (09:07)
[2020-07-17] MEDS: lisinopril 5 MG TAB PO SCH (09:07)
[2020-07-17 10:20] LABS: Folate (Folic Acid) > 20.00 ng/ml (>5.38); Vitamin B12 1437 pg/ml (193-986)
[2020-07-17] MEDS ORDERED: IPRATROPIUM BROMIDE/ALBUTEROL respimat INH INH SCH (10:30)
[2020-07-17] MEDS: IPRATROPIUM BROMIDE HFA INHALER INH SCH ×3 (11:12→19:32)
[2020-07-17] MEDS: ALBUTEROL HFA 8 GM INHALER INH SCH ×3 (11:12→19:32)
[2020-07-17] MEDS: BENZONATATE 100 MG CAPSULE PO SCH ×3 (12:07→20:34)
[2020-07-17] MEDS: LACTATED RINGER'S 1,000 ML IV SCH (12:07)
[2020-07-17] MEDS: HYDROcodone/HOMATROPINE SYRUP 5MG/1.5MG 5ML UDP PO PRN ×2 (12:14→20:43)
--- NOTE | 2020-07-17 14:00 | Hospitalist Progress Note ---
Date of Service July 17, 2020 Assessment & Plan (1) Hypoxemia: Xena Mckeon is a 69 year old woman with PMH of rectal cancer in remission, hypertension, osteoathritis and spinal fusion and recent right hip fracture with replacement on the of this month who presents with diarrhea fevers and chills, and cough with shortness of breath for five days duration who is COVID positive upon admission. Hypoxemia secondary to Covid-19 pneumonia-initially, she was requiring 4 L nasal cannula but was having desaturations to the low 80s with minimal exertion like sitting up in bed for lung exam. Is now worsening on 07/17 and requiring high flow nasal cannula at 45 L and 80% FiO2 Evidence of pneumonia on imaging, elevated D dimer but CTA negative She has no history of chronic lung or cardiac disease -Continue to treat with dexamethasone 6 mg daily for 10 days-last day would be 07/25 -Continue remdesivir therapy x5-day course-last day would be 07/20 -Continue supplemental O2 to keep pulse ox greater than 92% -Has bad cough that causes her desaturations-add on albuterol and ipratropium scheduled HFA every 6 hours, add on Hycodan cough syrup as needed -Add scheduled Tessalon Perles (2) Pneumonia due to 2019 novel coronavirus: As above -Blood cultures-no growth to date (3) Elevated serum creatinine: Acute kidney injury Likely pre renal from diarrhea and dehydration Creatinine today is down from 1.4-1.0-COLLIN is resolved DC IV fluids She is tolerating p.o. well Follow BMP in the morning (4) Acute dehydration: As above, secondary to diarrhea Hydrated now improved (5) History of right hip hemiarthroplasty: Had right hip hemiarthroplasty performed on 06/28 PT/OT consults placed-she is allowed to weight-bear as tolerated Posterior hip precautions discussed with the nurse Continue Lovenox 30 mg SQ twice daily for DVT prophylaxis, also continue SCDs Steri-Strips still in place over the wound We will need to see when she is to follow-up with orthopedic surgery Tramadol as needed for pain (6) Hypertension: Blood pressures are stable Continue home lisinopril (7) Anemia: Hemoglobin down slightly to 8.8, normocytic Did have recent hip surgery Iron studies show anemia of chronic disease but transferrin saturation is mildly low at 12%-mild iron deficiency B12, folate, TSH all normal Follow CBC (8) Thrombocytosis: Platelets elevated in the 500s Secondary to acute phase reactant with acute illness Follow CBC (9) DVT prophylaxis: Continue Lovenox 30 mg SQ twice daily which is the dose recommended by orthopedic surgery after recent hip surgery SCDs Disposition-continued stay on telemetry After lengthy discussion on 07/17, patient reports she is okay with mechanical ventilation for respiratory failure, but would not want tracheostomy. Reports that if she was on the ventilator for long enough that she needed a tracheostomy, that she would want her care to be withdrawn. This decision was also discussed with the patient's sister and healthcare decision-maker, Razia on the phone at the patient's request. She is a full resuscitation Admission and Anticipated Discharge Date Admission Date: July 16, 2020 Subjective Patient still having significant cough which causes her to desaturate. This now improved after using albuterol/ipratropium HFA as well as starting on Hycodan. She was on 15 L oxygen mask this morning and then was converted to high flow nasal cannula which she seems to tolerate better. She reports she ate lunch and denies nausea/vomiting/diarrhea. No abdominal pain. We had a long discussion about if she would want to be intubated or not and she asked many good questions including the pros and cons and complications of being on a ventilator and a critical care stay. Ultimately, she decided that she would want to be intubated if has worsening respiratory failure, but would not ever want a tracheostomy if she had to be mechanically ventilated for that long of a period of time. She asked me to call her sister and update her on her care and her changing CODE STATUS. Telemetry with normal sinus rhythm with rates in the 60s to 80s. Review of Systems Review of Systems: All systems reviewed & are unremarkable except as noted in HPI & below Physical Exam Constitutional: WD/WN, vitals as above Eyes: + anicteric sclerae Neck: trachea midline, no thyromegaly Respiratory: + cough Auscultation: + crackles (Bibasilar); no rhonchi and no wheezes Cardiovascular: RRR, no murmur, no edema Chest (Breasts): Chest: normal inspection of chest Gastrointestinal (Abdomen): normal bowel sounds, soft, nontender, no hepatosplenomegaly Musculoskeletal: Extremities: no cyanosis and no clubbing Skin: no rashes, warm and dry Neurologic: moves all extremities and awake; no focal motor deficits Psychiatric: A+Ox3, euthymic affect Lymphatic: no lymphedema Results & Data Results & Data ([facility]) Vital Signs (Past 12 Hours) Vital Signs Temp Pulse Pulse Resp BP Pulse Ox 07/17/20 11:17 70 20 94 07/17/20 11:16 63 22 95 07/17/20 10:53 36.8 C 75 22 97/57 L 94 07/17/20 08:19 36.8 C 74 20 96/55 L 91 07/17/20 07:18 36.8 C 74 22 104/57 L 93 07/17/20 06:20 67 07/17/20 03:21 36 C L 62 18 92/57 L 96 Laboratory Results 07/17/20 07/17/20 07/17/20 Range/Units 07:24 07:24 07:24 WBC (4.8-10.8) K/uL RBC (4.2-5.4) M/uL Hgb (12.0-16.0) g/dL Hct (37-47) % MCV (80-100) fL MCH (25-34) pg MCHC (32-36) g/dL RDW Std Deviation (36.4-46.3) fL RDW Coeff of Anthony (11.5-14.5) % Plt Count (130-400) K/uL MPV (7.4-10.4) fL Immature Gran % (Auto) % Neut % (Auto) % Lymph % (Auto) % [place] % (Auto) % Eos % (Auto) % Baso % (Auto) % Neut # (Auto) (1.4-6.5) K/uL Lymph # (Auto) (1.2-3.4) K/uL [place] # (Auto) (0.11-0.59) K/uL Eos # (Auto) (0-0.5) K/uL Baso # (Auto) (0-0.2) K/uL Immature Gran # (Auto) (0.00-0.02) K/uL ESR 48 H (0-21) mm/hr Sodium (136-145) mmol/L Potassium (3.5-5.1) mmol/L Chloride (98-107) mmol/L Carbon Dioxide (21-32) mmol/L Anion Gap (3-11) BUN (7-18) mg/dl Creatinine (0.6-1.2) mg/dl Est Cr Clr Drug Dosing ml/min Est GFR ( Amer) Est GFR (Non-Af Amer) BUN/Creatinine Ratio (10-20) Glucose (70-99) mg/dl Calcium (8.5-10.1) mg/dl Phosphorus (2.5-4.9) mg/dl Magnesium (1.8-2.4) mg/dl Iron (35-150) mcg/dl TIBC (250-450) mcg/dl Transferrin (200-360) mg/dl Transferrin % Sat (15-50) % Ferritin (8-388) ng/ml Total Bilirubin (0.2-1) mg/dl AST (15-37) U/L ALT (12-78) U/L Alkaline Phosphatase (45-117) U/L C-Reactive Protein (0-0.29) mg/dl Total Protein (6.4-8.2) gm/dl Albumin (3.4-5.0) gm/dl Globulin (2.5-4.0) gm/dl Albumin/Globulin Ratio (0.9-2) Vitamin B12 1437 H (193-986) pg/ml Folate > 20.00 (>5.38) ng/ml Procalcitonin 0.08 (0-0.5) ng/ml TSH (0.300-4.500) uIu/ml Nasal Screen MRSA (PCR) (Negative) 07/17/20 07/17/20 07/17/20 Range/Units 07:24 07:24 03:20 WBC 11.16 H (4.8-10.8) K/uL RBC 2.86 L (4.2-5.4) M/uL Hgb 8.8 L (12.0-16.0) g/dL Hct 26.9 L (37-47) % MCV 94.1 (80-100) fL MCH 30.8 (25-34) pg MCHC 32.7 (32-36) g/dL RDW Std Deviation 50.4 H (36.4-46.3) fL RDW Coeff of Anthony 14.7 H (11.5-14.5) % Plt Count 540 H (130-400) K/uL MPV 8.7 (7.4-10.4) fL Immature Gran % (Auto) 0.4 % Neut % (Auto) 84.2 % Lymph % (Auto) 7.1 % [place] % (Auto) 8.2 % Eos % (Auto) 0.0 % Baso % (Auto) 0.1 % Neut # (Auto) 9.41 H (1.4-6.5) K/uL Lymph # (Auto) 0.79 L (1.2-3.4) K/uL [place] # (Auto) 0.91 H (0.11-0.59) K/uL Eos # (Auto) 0.00 (0-0.5) K/uL Baso # (Auto) 0.01 (0-0.2) K/uL Immature Gran # (Auto) 0.04 H (0.00-0.02) K/uL ESR (0-21) mm/hr Sodium 140 (136-145) mmol/L Potassium 3.9 (3.5-5.1) mmol/L Chloride 110 H (98-107) mmol/L Carbon Dioxide 21 (21-32) mmol/L Anion Gap 9.0 (3-11) BUN 36 H (7-18) mg/dl Creatinine 1.04 (0.6-1.2) mg/dl Est Cr Clr Drug Dosing 40.9 ml/min Est GFR ( Amer) 63.9 Est GFR (Non-Af Amer) 55.2 BUN/Creatinine Ratio 34.1 H (10-20) Glucose 93 (70-99) mg/dl Calcium 8.8 (8.5-10.1) mg/dl Phosphorus 3.4 (2.5-4.9) mg/dl Magnesium 2.1 (1.8-2.4) mg/dl Iron 35 (35-150) mcg/dl TIBC 249 L (250-450) mcg/dl Transferrin 204 (200-360) mg/dl Transferrin % Sat 12 L (15-50) % Ferritin 714.6 H (8-388) ng/ml Total Bilirubin 0.3 (0.2-1) mg/dl AST 51 H (15-37) U/L ALT 34 (12-78) U/L Alkaline Phosphatase 80 (45-117) U/L C-Reactive Protein 7.75 H (0-0.29) mg/dl Total Protein 6.5 (6.4-8.2) gm/dl Albumin 2.5 L (3.4-5.0) gm/dl Globulin 4.0 (2.5-4.0) gm/dl Albumin/Globulin Ratio 0.6 L (0.9-2) Vitamin B12 (193-986) pg/ml Folate (>5.38) ng/ml Procalcitonin (0-0.5) ng/ml TSH 0.522 (0.300-4.500) uIu/ml Nasal Screen MRSA (PCR) Negative (Negative) PG Care Time/CCT Total # of Minutes Spent Total Time Spent with Patient: Total time spent is greater than 50% in coordination of care (as documented) at patient's floor/unit and/or counseling patient: Coding Level of Care Code 98462 Subseq Hosp Care Lvl 3 Diagnoses Hypoxemia R09.02 Pneumonia due to 2019 novel coronavirus U07.1; J12.89 Elevated serum creatinine R79.89 Acute dehydration E86.0 History of right hip hemiarthroplasty Z96.641 Hypertension I10 Anemia D64.9 Thrombocytosis D47.3 DVT prophylaxis Z29.9
[2020-07-17] MEDS: REMDESIVIR 100 MG in SODIUM CHLORIDE 0.9% 230 ML IV SCH (20:34)
[2020-07-18] MEDS: SODIUM CHLORIDE 0.9% 10ML FLUSH IV SCH ×2 (03:47→21:15)
[2020-07-18] MEDS ORDERED: HEPARIN 100 UNIT/ML 5ML FLUSH ONE ×2 (07:51→09:33)
[2020-07-18] MEDS: dexAMETHasone 6 MG in SYRINGE 0 ML IV SCH (08:00)
[2020-07-18] MEDS: ENOXAPARIN INJ 30 MG/0.3 ML SYR SQ SCH ×2 (08:03→20:31)
[2020-07-18] MEDS: BENZONATATE 100 MG CAPSULE PO SCH ×3 (08:03→20:29)
[2020-07-18] MEDS: MULTIVITAMIN TAB PO SCH (08:04)
[2020-07-18] MEDS: lisinopril 5 MG TAB PO SCH (08:08)
[2020-07-18] MEDS: IPRATROPIUM BROMIDE HFA INHALER INH SCH ×4 (08:14→19:40)
[2020-07-18] MEDS: ALBUTEROL HFA 8 GM INHALER INH SCH ×4 (08:14→19:40)
[2020-07-18 08:42] LABS: Basophils # (auto) 0.01 K/uL (0-0.2); Basophils % (auto) 0.1 %; Hematocrit (blood only) 27.4 % (37-47); Hemoglobin 8.9 g/dL (12.0-16.0); Immature Granulocytes # (auto) 0.08 K/uL (0.00-0.02); Immature Granulocytes % (auto) 0.7 %; Lymphocytes % (auto) 5.5 %; Mean Corpuscular Hemoglobin 30.5 pg (25-34); Mean Corpuscular Hgb Conc 32.5 g/dL (32-36); Mean Corpuscular Volume 93.8 fL (80-100); Monocytes # (auto) 0.94 K/uL (0.11-0.59); Monocytes % (auto) 8.6 %; Neutrophils # (auto) 9.27 K/uL (1.4-6.5); Neutrophils % (auto) 85.1 %; Platelet Count 516 K/uL (130-400); RDW Coefficient of Variation 14.7 % (11.5-14.5); RDW Standard Deviation 50.4 fL (36.4-46.3); Red Blood Count 2.92 M/uL (4.2-5.4)
[2020-07-18 09:10] LABS: Albumin Level 2.6 gm/dl (3.4-5.0); BUN Creatinine Ratio 33.9 (10-20); C Reactive Protein 4.93 mg/dl (0-0.29); Calcium 8.8 mg/dl (8.5-10.1); Creatinine Clr Calc Pharmacy 45.5 ml/min; Est GFR (African American) 69.6
[2020-07-18 09:13] LABS: Albumin Globulin Ratio 0.7 (0.9-2); Bilirubin,Total 0.3 mg/dl (0.2-1); Globulin 3.7 gm/dl (2.5-4.0); Phosphorus 3.5 mg/dl (2.5-4.9); Total Protein 6.3 gm/dl (6.4-8.2)
[2020-07-18] MEDS: HYDROcodone/HOMATROPINE SYRUP 5MG/1.5MG 5ML UDP PO PRN ×2 (09:25→20:29)
--- NOTE | 2020-07-18 10:42 | Billing Data ---
Date of Service July 18, 2020 Coding Level of Care Code 92483 Initial Inpt Care Lvl 3
--- NOTE | 2020-07-18 13:43 | Hospitalist Progress Note ---
Date of Service July 18, 2020 Assessment & Plan (1) Hypoxemia: Xena Mckeon is a 69 year old woman with PMH of rectal cancer in remission, hypertension, osteoathritis and spinal fusion and recent right hip fracture with replacement on the of this month who presents with diarrhea fevers and chills, and cough with shortness of breath for five days duration who is COVID positive upon admission. Hypoxemia secondary to Covid-19 pneumonia-initially, she was requiring 4 L nasal cannula initially but was having desaturations to the low 80s with minimal exertion like sitting up in bed for lung exam. Respiratory status worsened on 07/17 and now requiring high flow nasal cannula-f ortunately, slightly improved on 07/18 and settings are reduced down to 35 L flow and 70% FiO2 Evidence of pneumonia on imaging, elevated D dimer but CTA negative She has no history of chronic lung or cardiac disease -Continue to treat with dexamethasone 6 mg daily for 10 days-last day would be 07/25 -Continue remdesivir therapy x5-day course-last day would be 07/20 -Add convalescent plasma-consent obtained on 07/18 -She is unable to lie prone due to her recent hip surgery -Continue supplemental O2 to keep pulse ox greater than 92% -Has terrible cough almost with some stridor at times that causes her desaturations-continue on albuterol and ipratropium scheduled HFA every 6 hours -Increase dose of Hycodan cough syrup to 10 mL every 6 hours as needed -Continue scheduled Tessalon Perles (2) Elevated serum creatinine: Acute kidney injury Likely pre renal from diarrhea and dehydration Creatinine 1.4 on admission and now down to 0.97 after IV fluids-COLLIN is resolved Have since discontinued the IV fluids She is tolerating p.o. well Follow BMP in the morning (3) Pneumonia due to 2019 novel coronavirus: As above -Blood cultures-no growth to date (4) Acute dehydration: As above, secondary to diarrhea Hydrated now improved (5) Thrombocytosis: Platelets elevated in the 500s but slightly improved today Secondary to acute phase reactant with acute illness Follow CBC (6) History of right hip hemiarthroplasty: Had right hip hemiarthroplasty performed on 06/28 PT/OT consults placed-she is allowed to weight-bear as tolerated Posterior hip precautions discussed with the nurse Continue Lovenox 30 mg SQ twice daily for DVT prophylaxis, also continue SCDs Steri-Strips still in place over the wound We will need to see when she is to follow-up with orthopedic surgery Tramadol as needed for pain (7) Anemia: Hemoglobin down slightly to 8.9, normocytic Did have recent hip surgery Iron studies show anemia of chronic disease but transferrin saturation is mildly low at 12%-mild iron deficiency B12, folate, TSH all normal Follow CBC -We will start ferrous sulfate once daily (8) Hypertension: Blood pressures are mildly low today Hold home lisinopril (9) DVT prophylaxis: Continue Lovenox 30 mg SQ twice daily which is the dose recommended by or thopedic surgery after recent hip surgery SCDs Disposition-continued stay on telemetry After lengthy discussion on 07/17, patient reports she is okay with mechanical ventilation for respiratory failure, but would not want tracheostomy. Reports that if she was on the ventilator for long enough that she needed a tracheostomy, that she would want her care to be withdrawn. This decision was also discussed with the patient's sister and healthcare decision-maker, Razia on the phone at the patient's request. She is a full resuscitation Admission and Anticipated Discharge Date Admission Date: July 16, 2020 Subjective Patient's pulse ox was noted to be 85% in the computer this morning and nurses were unable to be reached by phone. I then called the patient in her room and she answered the phone while gasping for air. She then was able to calm down and tell me that her pulse ox in the room was 95% and she felt fine. She is still having a terrible cough and we agreed to increase the dose of her Hycodan to 10 mL. When I saw her after that, the Hycodan was really helping and she felt much better with less cough and less shortness of breath. She only had chest pain when she was coughing a lot worse the first day or so of admission but not now. Denies nausea and she was tolerating p.o. She reports she is having regular bowel movements and making urine. She is sitting out of bed to a chair when I saw her. Review of Systems Review of Systems: All systems reviewed & are unremarkable except as noted in HPI & below Physical Exam Constitutional: WD/WN, vitals as above + ill appearing Eyes: + anicteric sclerae Neck: trachea midline, no thyromegaly Respiratory: + cough and + stridor (Only with inspiration that is forceful like just before a cough) Auscultation: + crackles (Bibasilar); no rhonchi and no wheezes Cardiovascular: RRR, no murmur, no edema Chest (Breasts): Chest: normal inspection of chest Gastrointestinal (Abdomen): normal bowel sounds, soft, nontender, no hepatosplenomegaly Musculoskeletal: Extremities: no cyanosis and no clubbing Skin: no rashes, warm and dry Neurologic: moves all extremities and awake; no focal motor deficits Psychiatric: A+Ox3, euthymic affect Lymphatic: no lymphedema Results & Data Results & Data ([facility]) Vital Signs (Past 12 Hours) Vital Signs Temp Pulse Pulse Resp BP BP Pulse Ox 07/18/20 11:48 96 07/18/20 11:31 37 C 66 18 105/66 99 07/18/20 11:18 69 93 07/18/20 10:48 62 07/18/20 08:16 61 26 H 85 L 07/18/20 08:07 95/58 L 07/18/20 07:09 36.7 C 61 22 91/58 L 93 07/18/20 06:19 63 22 92 07/18/20 04:38 36.6 C 59 L 20 100/62 95 07/18/20 04:15 59 L 24 89 L Laboratory Results 07/18/20 07:59 07/18/20 07:59 PG Care Time/CCT Total # of Minutes Spent Total Time Spent with Patient: Total time spent is greater than 50% in coordination of care (as documented) at patient's floor/unit and/or counseling patient: Coding Level of Care Code 75670 Subseq Hosp Care Lvl 3 Diagnoses Hypoxemia R09.02 Elevated serum creatinine R79.89 Pneumonia due to 2019 novel coronavirus U07.1; J12.89 Acute dehydration E86.0 Thrombocytosis D47.3 History of right hip hemiarthroplasty Z96.641 Anemia D64.9 Hypertension I10 DVT prophylaxis Z29.9
[2020-07-18] MEDS ORDERED: FERROUS SULFATE 325 MG TAB PO ONE (14:30)
[2020-07-18] MEDS: REMDESIVIR 100 MG in SODIUM CHLORIDE 0.9% 230 ML IV SCH (20:14)
[2020-07-19] MEDS: HYDROcodone/HOMATROPINE SYRUP 5MG/1.5MG 5ML UDP PO PRN (05:44)
[2020-07-19 06:39] LABS: Basophils # (auto) 0.01 K/uL (0-0.2); Basophils % (auto) 0.1 %; Eosinophils # (auto) 0.01 K/uL (0-0.5); Eosinophils % (auto) 0.1 %; Hematocrit (blood only) 25.3 % (37-47); Hemoglobin 8.2 g/dL (12.0-16.0); Immature Granulocytes # (auto) 0.18 K/uL (0.00-0.02); Immature Granulocytes % (auto) 1.5 %; Lymphocytes # (auto) 0.63 K/uL (1.2-3.4); Lymphocytes % (auto) 5.2 %; Mean Corpuscular Hemoglobin 30.3 pg (25-34); Mean Corpuscular Hgb Conc 32.4 g/dL (32-36); Mean Corpuscular Volume 93.4 fL (80-100); Mean Platelet Volume 8.9 fL (7.4-10.4); Monocytes # (auto) 0.54 K/uL (0.11-0.59); Monocytes % (auto) 4.5 %; Neutrophils # (auto) 10.66 K/uL (1.4-6.5); Neutrophils % (auto) 88.6 %; Platelet Count 554 K/uL (130-400); RDW Coefficient of Variation 14.6 % (11.5-14.5); RDW Standard Deviation 49.1 fL (36.4-46.3); Red Blood Count 2.71 M/uL (4.2-5.4); White Blood Count 12.03 K/uL (4.8-10.8)
[2020-07-19 07:16] LABS: Albumin Level 2.6 gm/dl (3.4-5.0); BUN Creatinine Ratio 30.9 (10-20); Calcium 8.5 mg/dl (8.5-10.1); Creatinine Clr Calc Pharmacy 45.1 ml/min; Est GFR (African American) 67.9; Est GFR (Non-African American) 58.6; Magnesium 2.2 mg/dl (1.8-2.4); Potassium 4.2 mmol/L (3.5-5.1)
[2020-07-19 07:19] LABS: Albumin Globulin Ratio 0.7 (0.9-2); Bilirubin,Total 0.4 mg/dl (0.2-1); Globulin 3.8 gm/dl (2.5-4.0); Phosphorus 3.3 mg/dl (2.5-4.9); Total Protein 6.4 gm/dl (6.4-8.2)
[2020-07-19] MEDS: IPRATROPIUM BROMIDE HFA INHALER INH SCH ×3 (07:49→16:00)
[2020-07-19] MEDS: ALBUTEROL HFA 8 GM INHALER INH SCH ×3 (07:49→16:00)
[2020-07-19] MEDS: ENOXAPARIN INJ 30 MG/0.3 ML SYR SQ SCH ×2 (08:46→20:14)
[2020-07-19] MEDS: BENZONATATE 100 MG CAPSULE PO SCH ×3 (08:46→20:15)
[2020-07-19] MEDS: dexAMETHasone 6 MG in SYRINGE 0 ML IV SCH ×2 (08:47→20:13)
[2020-07-19] MEDS: MULTIVITAMIN TAB PO SCH (08:47)
[2020-07-19] MEDS: FERROUS SULFATE 325 MG TAB PO SCH (08:47)
--- NOTE | 2020-07-19 13:28 | Hospitalist Progress Note ---
Date of Service July 19, 2020 Assessment & Plan (1) Hypoxemia: Xena Mckeon is a 69 year old woman with PMH of rectal cancer in remission, hypertension, osteoathritis and spinal fusion and recent right hip fracture with replacement on the of this month who presents with diarrhea fevers and chills, and cough with shortness of breath for five days duration who is COVID positive upon admission. Hypoxemia secondary to Covid-19 pneumonia-initially, she was requiring 4 L nasal cannula initially but was having desaturations to the low 80s with minimal exertion like sitting up in bed for lung exam. Respiratory status worsened on 07/17 and now continues to be requiring max setti ngs of high flow nasal cannula With significant spasms of coughing which caused desaturation and having inspiratory stridor which does now seem to be improving slightly Evidence of pneumonia on imaging, elevated D dimer but CTA negative She has no history of chronic lung or cardiac disease -Continue to treat with dexamethasone 6 mg but increase to twice daily due to significant hypoxia and in case of laryngeal edema with stridor-last day would be 07/25 -Change from HFA to nebulizers for albuterol/ipratropium -Continue remdesivir therapy x5-day course-last day would be 07/20 -Awaiting convalescent plasma-consent obtained on 07/18 -She is unable to lie prone due to her recent hip surgery -Continue supplemental O2 to keep pulse ox greater than 92% -Change Hycodan cough syrup to 10 mL every 6 hours scheduled -Continue scheduled Tessalon Perles (2) Elevated serum creatinine: Acute kidney injury-improved Likely pre renal from diarrhea and dehydration Creatinine 1.4 on admission and now normal after IV fluids Have since discontinued the IV fluids She is tolerating p.o. well Follow BMP in the morning (3) Pneumonia due to 2019 novel coronavirus: As above -Blood cultures-no growth to date (4) Acute dehydration: As above, secondary to diarrhea Hydrated now improved (5) Thrombocytosis: Platelets remain elevated in the 500s Secondary to acute phase reactant with acute illness Follow CBC (6) History of right hip hemiarthroplasty: Had right hip hemiarthroplasty performed on 06/28 PT/OT consults placed-she is allowed to weight-bear as tolerated Posterior hip precautions discussed with the nurse Continue Lovenox 30 mg SQ twice daily for DVT prophylaxis, also continue SCDs Steri-Strips still in place over the wound We will need to see when she is to follow-up with orthopedic surgery Tramadol as needed for pain (7) Anemia: Hemoglobin down slightly again to 8.2, normocytic Did have recent hip surgery Iron studies show anemia of chronic disease but transferrin saturation is mildly low at 12%-mild iron deficiency B12, folate, TSH all normal Follow CBC - started ferrous sulfate once daily (8) Hypertension: Blood pressures are low normal Continue to hold home lisinopril (9) DVT prophylaxis: Continue Lovenox 30 mg SQ twice daily which is the dose recommended by orthopedic surgery after recent hip surgery SCDs Disposition-continued stay on telemetry After lengthy discussion on 07/17, patient reports she is okay with mechanical v entilation for respiratory failure, but would not want tracheostomy. Reports that if she was on the ventilator for long enough that she needed a tracheostomy, that she would want her care to be withdrawn. This decision was also discussed with the patient's sister and healthcare decision-maker, Razia on the phone at the patient's request. She is a full resuscitation Admission and Anticipated Discharge Date Admission Date: July 16, 2020 Subjective RN reports patient had an episode of desaturation to the high 70s today just with getting out of bed to the bedside commode while wearing max settings of high flow nasal cannula. After about 5 minutes of rest, she was able to return back up to 90%. Patient reports she would like the cough syrup to be scheduled so she does not ask for it because she keeps forgetting minutes time and then has coughing spasms. Does feel slightly improved today but again is on 100% FiO2 at 40 L high flow nasal cannula. Denies chest pain. No abdominal pain or nausea. Review of Systems Review of Systems: All systems reviewed & are unremarkable except as noted in HPI & below Physical Exam Constitutional: WD/WN, vitals as above + ill appearing Eyes: + anicteric sclerae Neck: trachea midline, no thyromegaly Respiratory: + cough (Stridor improved) Auscultation: + crackles (Bibasilar); no rhonchi and no wheezes Cardiovascular: RRR, no murmur, no edema Chest (Breasts): Chest: normal inspection of chest Gastrointestinal (Abdomen): normal bowel sounds, soft, nontender, no hepatosplenomegaly Musculoskeletal: Extremities: no cyanosis and no clubbing Skin: no rashes, warm and dry Neurologic: moves all extremities and awake; no focal motor deficits Psychiatric: A+Ox3, euthymic affect Lymphatic: no lymphedema Results & Data Results & Data ([facility]) Vital Signs (Past 12 Hours) Vital Signs Temp Pulse Pulse Resp BP Pulse Ox 07/19/20 11:13 73 20 90 07/19/20 11:08 37.1 C 73 20 101/69 93 07/19/20 08:00 65 07/19/20 07:50 70 18 90 07/19/20 07:37 36.6 C 70 21 108/67 93 07/19/20 04:58 65 20 93 07/19/20 03:48 36.6 C 63 20 108/66 93 Laboratory Results 07/19/20 05:54 07/19/20 05:54 PG Care Time/CCT Total # of Minutes Spent Total Time Spent with Patient: Total time spent is greater than 50% in coordination of care (as documented) at patient's floor/unit and/or counseling patient: Coding Level of Care Code 80111 Subseq Hosp Care Lvl 3 Diagnoses Hypoxemia R09.02 Elevated serum creatinine R79.89 Pneumonia due to 2019 novel coronavirus U07.1; J12.89 Acute dehydration E86.0 Thrombocytosis D47.3 History of right hip hemiarthroplasty Z96.641 Anemia D64.9 Hypertension I10 DVT prophylaxis Z29.9
[2020-07-19] MEDS: HYDROcodone/HOMATROPINE SYRUP 5MG/1.5MG 5ML UDP PO SCH ×2 (15:41→20:13)
[2020-07-19] MEDS: ALBUT/IPRATROP 3MG/0.5MG NEB 3 ML VIAL NEB SCH (18:27)
[2020-07-19] MEDS: REMDESIVIR 100 MG in SODIUM CHLORIDE 0.9% 230 ML IV SCH (20:02)
[2020-07-19] MEDS: SODIUM CHLORIDE 0.9% 10ML FLUSH IV SCH (20:15)
[2020-07-20] MEDS: HYDROcodone/HOMATROPINE SYRUP 5MG/1.5MG 5ML UDP PO SCH ×4 (02:21→20:49)
[2020-07-20] MEDS: ALBUT/IPRATROP 3MG/0.5MG NEB 3 ML VIAL NEB SCH ×5 (02:32→20:24)
[2020-07-20 07:20] LABS: Basophils # (auto) 0.02 K/uL (0-0.2); Basophils % (auto) 0.1 %; Hematocrit (blood only) 28.6 % (37-47); Hemoglobin 9.4 g/dL (12.0-16.0); Immature Granulocytes # (auto) 0.35 K/uL (0.00-0.02); Immature Granulocytes % (auto) 2.6 %; Lymphocytes # (auto) 0.71 K/uL (1.2-3.4); Lymphocytes % (auto) 5.2 %; Mean Corpuscular Hemoglobin 30.2 pg (25-34); Mean Corpuscular Hgb Conc 32.9 g/dL (32-36); Mean Platelet Volume 9.1 fL (7.4-10.4); Monocytes # (auto) 0.59 K/uL (0.11-0.59); Monocytes % (auto) 4.3 %; Neutrophils # (auto) 12.03 K/uL (1.4-6.5); Neutrophils % (auto) 87.8 %; Platelet Count 482 K/uL (130-400); RDW Coefficient of Variation 14.4 % (11.5-14.5); RDW Standard Deviation 48.8 fL (36.4-46.3); Red Blood Count 3.11 M/uL (4.2-5.4)
[2020-07-20 07:43] LABS: Albumin Level 2.6 gm/dl (3.4-5.0); BUN Creatinine Ratio 33.6 (10-20); C Reactive Protein 4.56 mg/dl (0-0.29); Creatinine Clr Calc Pharmacy 46.8 ml/min; Est GFR (African American) 72.2; Est GFR (Non-African American) 62.3; Magnesium 2.3 mg/dl (1.8-2.4); Potassium 4.4 mmol/L (3.5-5.1)
[2020-07-20 07:46] LABS: Albumin Globulin Ratio 0.7 (0.9-2); Bilirubin,Total 0.4 mg/dl (0.2-1); Globulin 3.9 gm/dl (2.5-4.0); Phosphorus 3.7 mg/dl (2.5-4.9); Total Protein 6.5 gm/dl (6.4-8.2)
[2020-07-20] MEDS: MULTIVITAMIN TAB PO SCH (08:59)
[2020-07-20] MEDS: dexAMETHasone 6 MG in SYRINGE 0 ML IV SCH ×2 (08:59→20:50)
[2020-07-20] MEDS: FERROUS SULFATE 325 MG TAB PO SCH (09:00)
[2020-07-20] MEDS: ERGOCALCIFEROL 50,000 UNITS 1250 MCG CAP PO SCH (09:00)
[2020-07-20] MEDS: BENZONATATE 100 MG CAPSULE PO SCH ×3 (09:01→20:50)
[2020-07-20] MEDS: ENOXAPARIN INJ 30 MG/0.3 ML SYR SQ SCH ×2 (09:01→20:50)
[2020-07-20] MEDS: POLYETHYLENE (MIRALAX) 17 GM PACK PO PRN (15:52)
--- NOTE | 2020-07-20 17:39 | Hospitalist Progress Note ---
Date of Service July 20, 2020 Assessment & Plan (1) Hypoxemia: Xena Mckeon is a 69 year old woman with PMH of rectal cancer in remission, hypertension, osteoathritis and spinal fusion and recent right hip fracture with replacement on the of this month who presents with diarrhea fevers and chills, and cough with shortness of breath for five days duration who is COVID positive upon admission. Hypoxemia secondary to Covid-19 pneumonia-initially, she was requiring 4 L nasal cannula initially but was having desaturations to the low 80s with minimal exertion like sitting up in bed for lung exam. Respiratory status worsened on 07/17 and now continues to be requiring max settings of high flow nasal cannula for several days in a row With significant spasms of coughing which caused desaturation and having inspiratory stridor which does now seem to be improving slightly since increasing the dose of dexamethasone Evidence of pneumonia on imaging, elevated D dimer but CTA negative She has no history of chronic lung or cardiac disease ESR and CRP are trending downward, platelets are trending back downward after being elevated -Continue to treat with dexamethasone 6 mg twice daily due to significant hypoxia and in case of laryngeal edema with stridor-last day would be 07/25 -Continue nebulizers albuterol/ipratropium 4 times daily -Has now completed a 5-day course of remdesivir therapy -Received her convalescent plasma on 07/20 -She is unable to lie prone due to her recent hip surgery, but will ask orthopedic surgery if this is okay as it is now 3 weeks from the time of her surgery -Continue supplemental O2 to keep pulse ox greater than 92% -Continue Hycodan cough syrup 10 mL every 6 hours scheduled -Continue scheduled Dionesalon Tyree (2) Elevated serum creatinine: Acute kidney injury-improved Likely pre renal from diarrhea and dehydration Creatinine 1.4 on admission and now normal after IV fluids Have since discontinued the IV fluids She is tolerating p.o. well Follow BMP in the morning (3) Pneumonia due to 2019 novel coronavirus: As above -Blood cultures-no growth to date (4) Acute dehydration: As above, secondary to diarrhea Hydrated now improved (5) Thrombocytosis: Platelets elevated in the 500s and are finally now trending downward to the 400s Secondary to acute phase reactant with acute illness Follow CBC (6) History of right hip hemiarthroplasty: Had right hip hemiarthroplasty performed on 06/28 PT/OT consults placed-she is allowed to weight-bear as tolerated Posterior hip precautions discussed with the nurse Continue Lovenox 30 mg SQ twice daily for DVT prophylaxis, also continue SCDs Steri-Strips still in place over the wound We will need to see when she is to follow-up with orthopedic surgery Tramadol as needed for pain -Will text orthopedic surgeon and see if it is okay for her to lie prone to help her oxygenation (7) Anemia: Hemoglobin back up today to 9.4, normocytic Did have recent hip surgery so likely some from acute blood loss anemia on top of chronic anemia Iron studies show anemia of chronic disease but transferrin saturation is mildly low at 12%-mild iron deficiency B12, folate, TSH all normal Follow CBC - started ferrous sulfate once daily (8) Hypertension: Blood pressures were mildly low normal but now are improved with holding lisinopril Continue to hold home lisinopril (9) DVT prophylaxis: Continue Lovenox 30 mg SQ twice daily which is the dose recommended by orthopedic surgery after recent hip surgery SCDs Disposition-continued stay on telemetry, condition is guarded at this time After lengthy discussion on 07/17, patient reports she is okay with mechanical ventilation for respiratory failure, but would not want tracheostomy. Reports that if she was on the ventilator for long enough that she needed a tracheostomy, that she would want her care to be withdrawn. This decision was also discussed with the patient's sister and healthcare decision-maker, Razia on the phone at the patient's request. She is a full resuscitation Admission and Anticipated Discharge Date Admission Date: July 16, 2020 Subjective Patient feeling a little better today, less short of breath. Remains on 100% FiO2 on high flow nasal cannula. Feels the cough is much improved with scheduled Hycodan. Denies chest pain or nausea. She is eating well today. But does report that her oxygen levels drop when she eats and she has to stop and wait in between bites. When I was in the room, she had a coughing fit and oxygen saturations dropped in the mid 80s. Telemetry with normal sinus rhythm, rates in the 60s to 70s Review of Systems Review of Systems: All systems reviewed & are unremarkable except as noted in HPI & below Physical Exam Constitutional: WD/WN, vitals as above Eyes: + anicteric sclerae Neck: trachea midline, no thyromegaly Respiratory: + cough (Stridor improved) Auscultation: + crackles (Bibasilar); no rhonchi and no wheezes Cardiovascular: RRR, no murmur, no edema Chest (Breasts): Chest: normal inspection of chest Gastrointestinal (Abdomen): normal bowel sounds, soft, nontender, no hepatosplenomegaly Musculoskeletal: Extremities: no cyanosis and no clubbing Skin: no rashes, warm and dry + wound (Steri-Strips in place over right hip incision which is well-healed) Neurologic: moves all extremities and awake; no focal motor deficits Psychiatric: A+Ox3, euthymic affect Lymphatic: no lymphedema Results & Data Results & Data ([facility]) Vital Signs (Past 12 Hours) Vital Signs Temp Pulse Pulse Resp BP BP BP 07/20/20 16:00 75 07/20/20 15:43 36.6 C 75 21 109/65 07/20/20 14:09 77 16 07/20/20 11:54 36.8 C 72 20 114/70 07/20/20 11:42 36.8 C 72 21 105/75 07/20/20 11:26 37.0 C 85 22 115/76 07/20/20 11:18 78 21 07/20/20 11:17 78 21 07/20/20 11:11 36.8 C 73 18 123/69 07/20/20 10:50 36.9 C 70 17 115/69 07/20/20 08:10 36.7 C 71 18 109/68 07/20/20 08:00 58 L 07/20/20 07:30 72 20 07/20/20 07:28 62 18 Pulse Ox 07/20/20 16:00 07/20/20 15:43 92 07/20/20 14:09 95 07/20/20 11:54 90 07/20/20 11:42 90 07/20/20 11:26 90 07/20/20 11:18 90 07/20/20 11:17 90 07/20/20 11:11 92 07/20/20 10:50 91 07/20/20 08:10 89 L 07/20/20 08:00 07/20/20 07:30 89 L 07/20/20 07:28 89 L Laboratory Results 07/20/20 06:38 07/20/20 06:38 PG Care Time/CCT Total # of Minutes Spent Total Time Spent with Patient: Total time spent is greater than 50% in coordination of care (as documented) at patient's floor/unit and/or counseling patient: Coding Level of Care Code 19444 Subseq Hosp Care Lvl 3 Diagnoses Hypoxemia R09.02 Elevated serum creatinine R79.89 Pneumonia due to 2019 novel coronavirus U07.1; J12.89 Acute dehydration E86.0 Thrombocytosis D47.3 History of right hip hemiarthroplasty Z96.641 Anemia D64.9 Hypertension I10 DVT prophylaxis Z29.9
[2020-07-21] MEDS: HYDROcodone/HOMATROPINE SYRUP 5MG/1.5MG 5ML UDP PO SCH ×4 (01:44→20:10)
[2020-07-21 06:27] LABS: Basophils # (auto) 0.02 K/uL (0-0.2); Basophils % (auto) 0.1 %; Hematocrit (blood only) 27.9 % (37-47); Hemoglobin 9.3 g/dL (12.0-16.0); Immature Granulocytes # (auto) 0.47 K/uL (0.00-0.02); Immature Granulocytes % (auto) 2.7 %; Lymphocytes # (auto) 0.66 K/uL (1.2-3.4); Lymphocytes % (auto) 3.8 %; Mean Corpuscular Hemoglobin 30.5 pg (25-34); Mean Corpuscular Hgb Conc 33.3 g/dL (32-36); Mean Corpuscular Volume 91.5 fL (80-100); Mean Platelet Volume 9.1 fL (7.4-10.4); Monocytes # (auto) 0.72 K/uL (0.11-0.59); Monocytes % (auto) 4.2 %; Neutrophils # (auto) 15.43 K/uL (1.4-6.5); Neutrophils % (auto) 89.2 %; Platelet Count 512 K/uL (130-400); RDW Coefficient of Variation 14.5 % (11.5-14.5); RDW Standard Deviation 48.3 fL (36.4-46.3); Red Blood Count 3.05 M/uL (4.2-5.4)
[2020-07-21 06:57] LABS: Albumin Level 2.8 gm/dl (3.4-5.0); BUN Creatinine Ratio 35.5 (10-20); Calcium 9.1 mg/dl (8.5-10.1); Creatinine Clr Calc Pharmacy 47.9 ml/min; Est GFR (African American) 74.2; Magnesium 2.3 mg/dl (1.8-2.4); Potassium 4.6 mmol/L (3.5-5.1)
[2020-07-21 07:00] LABS: Albumin Globulin Ratio 0.8 (0.9-2); Bilirubin,Total 0.5 mg/dl (0.2-1); Globulin 3.7 gm/dl (2.5-4.0); Phosphorus 3.4 mg/dl (2.5-4.9); Total Protein 6.5 gm/dl (6.4-8.2)
[2020-07-21] MEDS: ALBUT/IPRATROP 3MG/0.5MG NEB 3 ML VIAL NEB SCH (07:20)
[2020-07-21] MEDS: BENZONATATE 100 MG CAPSULE PO SCH ×3 (08:25→20:11)
[2020-07-21] MEDS: MULTIVITAMIN TAB PO SCH (08:25)
[2020-07-21] MEDS: FERROUS SULFATE 325 MG TAB PO SCH (08:25)
[2020-07-21] MEDS: ENOXAPARIN INJ 30 MG/0.3 ML SYR SQ SCH ×2 (08:25→20:12)
[2020-07-21] MEDS: dexAMETHasone 6 MG in SYRINGE 0 ML IV SCH ×2 (08:25→20:11)
[2020-07-21] MEDS: ALBUTEROL HFA 8 GM INHALER INH SCH ×3 (11:32→21:03)
--- NOTE | 2020-07-21 19:40 | Hospitalist Progress Note ---
Date of Service July 21, 2020 Assessment & Plan (1) Hypoxemia: Xena Mckeon is a 69 year old woman with PMH of rectal cancer in remission, hypertension, osteoathritis and spinal fusion and recent right hip fracture with replacement on 06/28/2020 who presents with diarrhea fevers and chills, and cough with shortness of breath for five days duration who is COVID positive upon admission. She was discharged to home from [facility] on 07/08. Hypoxemia secondary to Covid-19 pneumonia-initially, she was requiring 4 L nasal cannula initially but was having desaturations to the low 80s with minimal exertion like sitting up in bed for lung exam. Respiratory status worsened on 07/17 and now continues to be requiring max settings of high flow nasal cannula since then With significant spasms of coughing which caused desaturation and having inspiratory stridor which does now seem to be improving slightly since increasing the dose of dexamethasone Oxygenation finally improved on 07/21 with lying prone-she was up to 100%-now able to titrate down FiO2 Evidence of pneumonia on imaging, elevated D dimer but CTA negative She has no history of chronic lung or cardiac disease ESR and CRP are trending downward, platelets are elevated as an acute phase reactant -Continue to treat with dexamethasone 6 mg twice daily due to significant hypoxia and in case of laryngeal edema with stridor-last day would be 07/25 unless course needs to be extended longer -Continue albuterol/ipratropium HFA 4 times daily -Has now completed a 5-day course of remdesivir therapy -Received her convalescent plasma on 07/20 -She is now able to lie prone as long as she does not over flex or abduct her hip due to her recent hip surgery-to be encouraged daily -Continue supplemental O2 to keep pulse ox greater than 92% -Continue Hycodan cough syrup 10 mL every 6 hours scheduled -Continue scheduled Tessalon Perles (2) Elevated serum creatinine: Acute kidney injury-resolved after IV fluid hydration Likely was pre renal from diarrhea and dehydration prior to admission Follow BMP in the morning (3) Pneumonia due to 2019 novel coronavirus: As above -Blood cultures-no growth to date (4) Acute dehydration: As above, secondary to diarrhea Hydrated and now improved (5) Thrombocytosis: Platelets elevated in the 500s Secondary to acute phase reactant with acute illness Follow CBC (6) History of right hip hemiarthroplasty: Had right hip hemiarthroplasty performed on 06/28 PT/OT consults placed-she is allowed to weight-bear as tolerated Posterior hip precautions discussed with the nurse to include no flexion beyond 90 degrees of the hip and no adduction Continue Lovenox 30 mg SQ twice daily for DVT prophylaxis, also continue SCDs Steri-Strips still in place over the wound We will need to see when she is to follow-up with orthopedic surgery Tramadol as needed for pain (7) Anemia: Hemoglobin back up and stable today at 9.4, normocytic Did have recent hip surgery so likely some from acute blood loss anemia on top of chronic anemia Iron studies show anemia of chronic disease but transferrin saturation is mildly low at 12%-mild iron deficiency B12, folate, TSH all normal Follow CBC - started ferrous sulfate once daily (8) Hypertension: Blood pressures were mildly low normal but now are improved with holding lisinopril Continue to hold home lisinopril (9) DVT prophylaxis: Continue Lovenox 30 mg SQ twice daily which is the dose recommended by orthopedic surgery after recent hip surgery as well SCDs Disposition-continued stay on telemetry, condition is guarded at this time After lengthy discussion on 07/17, patient reports she is okay with mechanical ventilation for respiratory failure, but would not want tracheostomy. Reports that if she was on the ventilator for long enough that she needed a tracheostomy, that she would want her care to be withdrawn. This decision was also discussed with the patient's sister and healthcare decision-maker, Razia on the phone at the patient's request. She is a full resuscitation Admission and Anticipated Discharge Date Admission Date: July 16, 2020 Subjective Patient reports she is not getting much sleep at all. Still with coughing fits of a dry cough that caused her to desaturate significantly. She remains on 100% FiO2 at 40 L on her high flow nasal cannula and as I am talking to her, she is persistently sitting at 87% of her pulse ox. She denies chest pains. She feels like she was able to eat better today but has shortness of breath with eating. Denies abdominal pains or diarrhea. I discussed her care with [facility] orthopedic surgeon on-call who said that she can lie in a prone position as long as she does not flex beyond 90 degrees and does not abduct the right lower extremity-this was discussed with nursing. I also encouraged the patient to prone and after convincing from the nurse, the patient went to a prone position and her pulse ox immediately went to 100% and stayed there. She seemed to tolerate it for quite some time today Telemetry with normal sinus rhythm with rates in the 60s. Review of Systems Review of Systems: All systems reviewed & are unremarkable except as noted in HPI & below Physical Exam Constitutional: WD/WN, vitals as above no acute distress Eyes: + anicteric sclerae Neck: trachea midline, no thyromegaly Respiratory: + cough (No further stridor) Auscultation: + crackles (Bibasilar); no rhonchi and no wheezes Cardiovascular: RRR, no murmur, no edema Chest (Breasts): Chest: normal inspection of chest Gastrointestinal (Abdomen): normal bowel sounds, soft, nontender, no hepatosplenomegaly Musculoskeletal: Extremities: no cyanosis and no clubbing Skin: no rashes, warm and dry + wound (Steri-Strips in place over right hip incision which is well-healed) Neurologic: moves all extremities and awake; no focal motor deficits Psychiatric: Orientation: alert and oriented x 3 Speech: normal rate/rhythm/volume of speech Affect: + flat affect Lymphatic: no lymphedema Results & Data Results & Data ([facility]) Vital Signs (Past 12 Hours) Vital Signs Temp Pulse Pulse Resp BP Pulse Ox Pulse Ox 07/21/20 16:17 76 24 97 07/21/20 16:10 76 24 97 07/21/20 15:59 36.7 C 75 26 H 102/71 97 07/21/20 11:33 64 18 91 07/21/20 11:08 36.7 C 65 18 112/70 100 07/21/20 10:39 65 91 07/21/20 08:35 64 26 H 92 Laboratory Results 07/21/20 05:41 07/21/20 05:41 Procalcitonin negative Blood cultures-no growth to date PG Care Time/CCT Total # of Minutes Spent Total Time Spent with Patient: Total time spent is greater than 50% in coordination of care (as documented) at patient's floor/unit and/or counseling patient: Coding Level of Care Code 03250 Subseq Hosp Care Lvl 3 Diagnoses Hypoxemia R09.02 Elevated serum creatinine R79.89 Pneumonia due to 2019 novel coronavirus U07.1; J12.89 Acute dehydration E86.0 Thrombocytosis D47.3 History of right hip hemiarthroplasty Z96.641 Anemia D64.9 Hypertension I10 DVT prophylaxis Z29.9
[2020-07-22] MEDS: HYDROcodone/HOMATROPINE SYRUP 5MG/1.5MG 5ML UDP PO SCH ×4 (02:30→20:48)
[2020-07-22 07:02] LABS: Hematocrit (blood only) 29.4 % (37-47); Hemoglobin 9.7 g/dL (12.0-16.0); Mean Corpuscular Hemoglobin 30.5 pg (25-34); Mean Corpuscular Volume 92.5 fL (80-100); Mean Platelet Volume 9.1 fL (7.4-10.4); Nucleated RBC # (auto) 0.03 K/uL (0-0); Nucleated RBC % (auto) 0.1 %; Platelet Count 505 K/uL (130-400); RDW Coefficient of Variation 14.6 % (11.5-14.5); RDW Standard Deviation 48.6 fL (36.4-46.3); Red Blood Count 3.18 M/uL (4.2-5.4); White Blood Count 21.36 K/uL (4.8-10.8)
[2020-07-22] MEDS: ALBUTEROL HFA 8 GM INHALER INH SCH ×4 (07:10→19:39)
[2020-07-22 07:38] LABS: BUN Creatinine Ratio 35.8 (10-20); Basophils # (auto) 0.03 K/uL (0-0.2); Basophils % (auto) 0.1 %; Calcium 8.8 mg/dl (8.5-10.1); Creatinine Clr Calc Pharmacy 43.5 ml/min; Eosinophils # (auto) 0.01 K/uL (0-0.5); Est GFR (Non-African American) 57.8; Immature Granulocytes # (auto) 1.08 K/uL (0.00-0.02); Immature Granulocytes % (auto) 5.1 %; Lymphocytes # (auto) 0.91 K/uL (1.2-3.4); Lymphocytes % (auto) 4.3 %; Monocytes # (auto) 0.44 K/uL (0.11-0.59); Monocytes % (auto) 2.1 %; Neutrophils # (auto) 18.89 K/uL (1.4-6.5); Neutrophils % (auto) 88.4 %; Potassium 4.7 mmol/L (3.5-5.1)
[2020-07-22] MEDS: dexAMETHasone 6 MG in SYRINGE 0 ML IV SCH ×2 (08:50→20:49)
[2020-07-22] MEDS: ENOXAPARIN INJ 30 MG/0.3 ML SYR SQ SCH ×2 (08:50→20:49)
[2020-07-22] MEDS: BENZONATATE 100 MG CAPSULE PO SCH ×3 (08:51→20:49)
[2020-07-22] MEDS: FERROUS SULFATE 325 MG TAB PO SCH (08:51)
[2020-07-22] MEDS: MULTIVITAMIN TAB PO SCH (08:51)
[2020-07-22] MEDS: POLYETHYLENE (MIRALAX) 17 GM PACK PO PRN (09:24)
--- NOTE | 2020-07-22 09:51 | Hospitalist Progress Note ---
Date of Service July 22, 2020 Assessment & Plan (1) Hypoxemia: Xena Mckeon is a 69 year old woman with PMH of rectal cancer in remission, hypertension, osteoathritis and spinal fusion and recent right hip fracture with replacement on 06/28/2020 who presents with diarrhea fevers and chills, and cough with shortness of breath for five days duration who is COVID positive upon admission. She was discharged to home from [facility] on 07/08. Hypoxemia secondary to Covid-19 pneumonia-initially, she was requiring 4 L nasal cannula initially but was having desaturations to the low 80s with minimal exertion like sitting up in bed for lung exam. Respiratory status worsened on 07/17, continues to be on high flow nasal canula encourage her to lay prone but can only last 30 minutes at a time Evidence of pneumonia on imaging, elevated D dimer but CTA negative She has no history of chronic lung or cardiac disease ESR and CRP are trending downward, platelets are elevated as an acute phase reactant continue dexamethasone 6mg daily, day 10 will be 07/25 -Has now completed a 5-day course of remdesivir therapy -Received her convalescent plasma on 07/20 -She is now able to lie prone as long as she does not over flex or abduct her hip due to her recent hip surgery-to be encouraged daily -Continue supplemental O2 to keep pulse ox greater than 92% -Continue Hycodan cough syrup 10 mL every 6 hours scheduled -Continue scheduled Tessalon Perles (2) Pneumonia due to 2019 novel coronavirus: As above -Blood cultures-no growth to date continue dexamethasone (3) Elevated serum creatinine: Acute kidney injury-resolved after IV fluid hydration Likely was pre renal from diarrhea and dehydration prior to admission Follow BMP in the morning (4) Acute dehydration: As above, secondary to diarrhea Hydrated and now improved (5) Thrombocytosis: Platelets elevated in the 500s Secondary to acute phase reactant with acute illness (6) History of right hip hemiarthroplasty: Had right hip hemiarthroplasty performed on 06/28 PT/OT consults placed-she is allowed to weight-bear as tolerated Posterior hip precautions discussed with the nurse to include no flexion beyond 90 degrees of the hip and no adduction Continue Lovenox 30 mg SQ twice daily for DVT prophylaxis, also continue SCDs Steri-Strips still in place over the wound We will need to see when she is to follow-up with orthopedic surgery Tramadol as needed for pain (7) Anemia: Hemoglobin back up and stable today at 9.7, normocytic Did have recent hip surgery so likely some from acute blood loss anemia on top of chronic anemia Iron studies show anemia of chronic disease but transferrin saturation is mildly low at 12%-mild iron deficiency B12, folate, TSH all normal Follow CBC - started ferrous sulfate once daily (8) Hypertension: Blood pressures were mildly low normal but now are improved with holding lisinopril Continue to hold home lisinopril SBP 124 today (9) DVT prophylaxis: Continue Lovenox 30 mg SQ twice daily which is the dose recommended by orthopedic surgery after recent hip surgery as well SCDs Disposition-continued stay on telemetry, condition is guarded at this time She is a full resuscitation Admission and Anticipated Discharge Date Admission Date: July 16, 2020 Subjective patient is breathing comfortably on HFNC, 40L and 90% FiO2 while sitting at 30 degrees her saturations are 90-92%, occasional desaturations she is eating okay, ate blueberries and yogurt and granola this morning last BM was 07/17, she is taking Miralax discussed with her the importance of laying on her stomach, she says she can only last 30 minutes her hip and spine start to bother her, had spine surgery earlier this year and LUCILA in June reviewed chart reviewed labs Review of Systems Review of Systems: All systems reviewed & are unremarkable except as noted in Subjective Constitutional: no fever, no chills, no sweats, no fatigue and no weakness Respiratory: + dyspnea and + dyspnea on exertion; no cough Cardiovascular: no chest pain and no edema Gastrointestinal: + constipation; no abdominal pain, no nausea, no vomiting and no diarrhea/loose stools Musculoskeletal: + back pain and + joint pain (hip) Physical Exam Constitutional: WD/WN, vitals as above well developed, well nourished and + overweight; no acute distress Neck: trachea midline, no thyromegaly Respiratory: normal respiratory effort, lungs clear to auscultation Cardiovascular: RRR, no murmur, no edema Gastrointestinal (Abdomen): normal bowel sounds, soft, nontender, no hepatosplenomegaly Musculoskeletal: no cyanosis or clubbing, extremities motor strength 5/5 Skin: no rashes, warm and dry Neurologic: patellar DTR's 2+ bilat, sensation intact and PERRL, EOMI, accommodation nl, no face palsy, no dysarthria Psychiatric: A+Ox3, euthymic affect Lymphatic: no cervical or axillary lymphadenopathy Results & Data Results & Data ([facility]) Vital Signs (Past 12 Hours) Vital Signs Temp Pulse Pulse Resp BP BP Pulse Ox 07/22/20 07:34 36.6 C 64 20 111/66 93 07/22/20 07:10 70 18 91 07/22/20 03:30 36.8 C 74 20 112/65 88 L 07/22/20 02:42 80 28 H 98 07/22/20 00:02 77 18 84 L 07/21/20 23:45 36.6 C 62 18 107/75 96 07/21/20 23:35 66 Laboratory Results Laboratory Results - last 24 hr 07/22/20 07/22/20 06:26 06:26 WBC 21.36 H RBC 3.18 L Hgb 9.7 L Hct 29.4 L MCV 92.5 MCH 30.5 MCHC 33.0 RDW Std Deviation 48.6 H RDW Coeff of Anthony 14.6 H Plt Count 505 H MPV 9.1 Immature Gran % (Auto) 5.1 Neut % (Auto) 88.4 Lymph % (Auto) 4.3 Placer % (Auto) 2.1 Eos % (Auto) 0.0 Baso % (Auto) 0.1 Neut # (Auto) 18.89 H Lymph # (Auto) 0.91 L Placer # (Auto) 0.44 Eos # (Auto) 0.01 Baso # (Auto) 0.03 Immature Gran # (Auto) 1.08 H Absolute Nucleated RBC 0.03 H Nucleated RBC % (auto) 0.1 Sodium 134 L Potassium 4.7 Chloride 102 Carbon Dioxide 25 Anion Gap 7.0 BUN 36 H Creatinine 1.00 Est Cr Clr Drug Dosing 43.5 Est GFR ( Amer) 67.0 Est GFR (Non-Af Amer) 57.8 BUN/Creatinine Ratio 35.8 H Glucose 143 H Calcium 8.8 Medications Administered Current Inpatient Medications Acetaminophen (Acetaminophen 500 Mg Tab) 1,000 mg PO Q8H PRN PRN Reason: Pain Stop: 08/15/20 00:57 Albuterol (Albuterol Hfa 8 Gm Inhaler) 2 puffs INH QIDR YNES Stop: 08/20/20 10:59 Last Admin: 07/22/20 07:10 Dose: 2 puffs Documented by: Benzonatate (Benzonatate 100 Mg Capsule) 100 mg PO TID [facility] Stop: 08/16/20 10:44 Last Admin: 07/22/20 08:51 Dose: 100 mg Documented by: Enoxaparin Sodium (Enoxaparin Inj 30 Mg/0.3 Ml Syr) 30 mg SQ BID [facility] Stop: 08/15/20 20:59 Last Admin: 07/22/20 08:50 Dose: 30 mg Documented by: Ergocalciferol (Ergocalciferol 50,000 Units 1250 Mcg Cap) 50,000 units PO Fr@0900 [facility] Stop: 08/19/20 08:59 Last Admin: 07/20/20 09:00 Dose: 50,000 units Documented by: Ferrous Sulfate (Ferrous Sulfate 325 Mg Tab) 325 mg PO QAM [facility] Stop: 08/18/20 08:59 Last Admin: 07/22/20 08:51 Dose: 325 mg Documented by: Heparin Sodium (Porcine) (Heparin 100 Unit/Ml 5ml Flush) 5 ml FLUSH PRN PRN PRN Reason: Flush Stop: 08/17/20 13:50 Hydrocodone Bit/Homatropine Methylb (Hydrocodone/Homatropine Syrup 5mg/1.5mg 5ml Udp) 10 ml PO Q6H [facility] Stop: 08/02/20 13:59 Last Admin: 07/22/20 09:23 Dose: 10 ml Documented by: Dexamethasone 6 mg/ Syringe 1.5 mls @ 1 mls/min IV Q12 [facility] Stop: 07/29/20 20:59 Last Admin: 07/22/20 08:50 Dose: 1 mls/min Documented by: Multivitamins (Multivitamin Tab) [facility] Stop: 08/15/20 08:59 Last Admin: 07/22/20 08:51 Dose: 1 tab Documented by: Ondansetron HCl (Ondansetron Inj 2 Mg/Ml 2 Ml Vial) 4 mg IV Q6H PRN PRN Reason: Nausea Stop: 08/15/20 00:57 Polyethylene Glycol (Polyethylene (Miralax) 17 Gm Pack) 17 gm PO DAILY PRN PRN Reason: Constipation Stop: 08/15/20 00:57 Last Admin: 07/22/20 09:24 Dose: 17 gm Documented by: Tramadol HCl (Tramadol Hcl 50 Mg Tablet) 50 mg PO Q6H PRN PRN Reason: Pain Stop: 08/15/20 00:57 PG Care Time/CCT Total # of Minutes Spent Total Time Spent with Patient: Total time spent is greater than 50% in coordination of care (as documented) at patient's floor/unit and/or counseling patient: Coding Level of Care Code 96437 Subseq Hosp Care Lvl 3 Diagnoses Hypoxemia R09.02 Pneumonia due to 2019 novel coronavirus U07.1; J12.89 Elevated serum creatinine R79.89 Acute dehydration E86.0 Thrombocytosis D47.3 History of right hip hemiarthroplasty Z96.641 Anemia D64.9 Hypertension I10 DVT prophylaxis Z29.9
[2020-07-23] MEDS: HYDROcodone/HOMATROPINE SYRUP 5MG/1.5MG 5ML UDP PO SCH ×4 (03:29→19:13)
[2020-07-23] MEDS: ALBUTEROL HFA 8 GM INHALER INH SCH (07:22)
[2020-07-23] MEDS: dexAMETHasone 6 MG in SYRINGE 0 ML IV SCH ×2 (08:19→19:14)
[2020-07-23] MEDS: BENZONATATE 100 MG CAPSULE PO SCH ×3 (08:19→19:13)
[2020-07-23] MEDS: ENOXAPARIN INJ 30 MG/0.3 ML SYR SQ SCH ×2 (08:20→19:14)
[2020-07-23] MEDS: MULTIVITAMIN TAB PO SCH (08:20)
[2020-07-23] MEDS: FERROUS SULFATE 325 MG TAB PO SCH (08:20)
[2020-07-23 08:34] LABS: Hemoglobin 11.7 g/dL (12.0-16.0); Mean Corpuscular Hemoglobin 30.5 pg (25-34); Mean Corpuscular Hgb Conc 32.5 g/dL (32-36); Mean Corpuscular Volume 93.8 fL (80-100); Mean Platelet Volume 9.8 fL (7.4-10.4); Platelet Count 457 K/uL (130-400); RDW Coefficient of Variation 15.2 % (11.5-14.5); RDW Standard Deviation 51.1 fL (36.4-46.3); Red Blood Count 3.84 M/uL (4.2-5.4); White Blood Count 22.58 K/uL (4.8-10.8)
[2020-07-23 08:50] LABS: BUN Creatinine Ratio 41.5 (10-20); Creatinine Clr Calc Pharmacy 45.2 ml/min; Est GFR (African American) 69.6
[2020-07-23] MEDS ORDERED: ALBUTEROL HFA 8 GM INHALER INH PRN (09:38)
--- NOTE | 2020-07-23 12:45 | Hospitalist Progress Note ---
Date of Service July 23, 2020 Assessment & Plan (1) Hypoxemia: Xena Mckeon is a 69 year old woman with PMH of rectal cancer in remission, hypertension, osteoathritis and spinal fusion and recent right hip fracture with replacement on 06/28/2020 who presents with diarrhea fevers and chills, and cough with shortness of breath for five days duration who is COVID positive upon admission. She was discharged to home from [facility] on 07/08. Hypoxemia secondary to Covid-19 pneumonia-initially, she was requiring 4 L nasal cannula initially but was having desaturations to the low 80s with minimal exertion like sitting up in bed for lung exam. Respiratory status worsened on 07/17, continues to be on high flow nasal canula encourage her to lay prone but can only last 30 minutes at a time Evidence of pneumonia on imaging, elevated D dimer but CTA negative She has no history of chronic lung or cardiac disease ESR and CRP are trending downward, platelets are elevated as an acute phase reactant continue dexamethasone 6mg daily, day 10 will be 07/25 -Has now completed a 5-day course of remdesivir therapy -Received her convalescent plasma on 07/20 -She is now able to lie prone as long as she does not over flex or abduct her hip due to her recent hip surgery-to be encouraged daily, even two or three times a day if she can manage -Continue supplemental O2 to keep pulse ox greater than 92% -Continue Hycodan cough syrup 10 mL every 6 hours scheduled -Continue scheduled Tessalon Perles (2) Pneumonia due to 2019 novel coronavirus: As above -Blood cultures-no growth to date continue dexamethasone (3) Elevated serum creatinine: Acute kidney injury-resolved after IV fluid hydration Likely was pre renal from diarrhea and dehydration prior to admission Follow BMP in the morning - Cr is 0.97 (4) Acute dehydration: As above, secondary to diarrhea Hydrated and now resolved (5) Thrombocytosis: Platelets elevated in the 500s Secondary to acute phase reactant with acute illness down a little at 457 (6) History of right hip hemiarthroplasty: Had right hip hemiarthroplasty performed on 06/28 PT/OT consults placed-she is allowed to weight-bear as tolerated Posterior hip precautions discussed with the nurse to include no flexion beyond 90 degrees of the hip and no adduction Continue Lovenox 30 mg SQ twice daily for DVT prophylaxis, also continue SCDs Steri-Strips still in place over the wound We will need to see when she is to follow-up with orthopedic surgery Tramadol as needed for pain (7) Anemia: Hemoglobin back up and stable today at 11.7, normocytic Did have recent hip surgery so likely some from acute blood loss anemia on top of chronic anemia Iron studies show anemia of chronic disease but transferrin saturation is mildly low at 12%-mild iron deficiency B12, folate, TSH all normal Follow CBC - started ferrous sulfate once daily (8) Hypertension: Blood pressures were mildly low normal but now are improved with holding lisinopril Continue to hold home lisinopril SBP 131 today (9) DVT prophylaxis: Continue Lovenox 30 mg SQ twice daily which is the dose recommended by orthopedic surgery after recent hip surgery as well SCDs Disposition-continued stay on telemetry, condition is guarded at this time She is a full resuscitation Admission and Anticipated Discharge Date Admission Date: July 16, 2020 Subjective patient feels about the same as yesterday at time of my visit she had just finished lunch, saturations 85% on 40L and 80% FiO2 I turned her up to 85% and saturations slowly came up to 90% she said she laid prone twice yesterday, encouraged her to do that again today, she will do it reviewed labs, WBC 22k, Hb 11.7, plts 457 Na 134 and Cr 0.97 we had a talk about if her respiratory status declines further, she is okay with mechanical ventilation for two weeks, she would not want tracheostomy she is eating well, like the tuna from cafeteria Review of Systems Review of Systems: All systems reviewed & are unremarkable except as noted in Subjective Respiratory: + cough, + dyspnea and + dyspnea on exertion Gastrointestinal: no abdominal pain, no nausea, no vomiting, no constipation and no diarrhea/loose stools Physical Exam Constitutional: WD/WN, vitals as above well developed, well nourished and + overweight; no acute distress Neck: trachea midline, no thyromegaly Respiratory: normal respiratory effort, lungs clear to auscultation Cardiovascular: RRR, no murmur, no edema Gastrointestinal (Abdomen): normal bowel sounds, soft, nontender, no hepatosplenomegaly Musculoskeletal: no cyanosis or clubbing, extremities motor strength 5/5 Skin: no rashes, warm and dry Neurologic: patellar DTR's 2+ bilat, sensation intact and PERRL, EOMI, accommodation nl, no face palsy, no dysarthria Psychiatric: A+Ox3, euthymic affect Lymphatic: no cervical or axillary lymphadenopathy Results & Data Results & Data ([facility]) Vital Signs (Past 12 Hours) Vital Signs Temp Pulse Resp BP Pulse Ox 07/23/20 11:14 72 20 92 07/23/20 07:23 36.3 C L 67 20 131/90 91 07/23/20 07:21 67 20 94 07/23/20 07:20 68 20 94 07/23/20 02:50 36.8 C 66 20 123/80 93 07/23/20 02:00 60 20 95 Laboratory Results Laboratory Results - last 24 hr 07/23/20 07/23/20 07:54 07:54 WBC 22.58 H RBC 3.84 L Hgb 11.7 L Hct 36.0 L MCV 93.8 MCH 30.5 MCHC 32.5 RDW Std Deviation 51.1 H RDW Coeff of Anthony 15.2 H Plt Count 457 H MPV 9.8 Sodium 134 L Potassium 5.0 Chloride 104 Carbon Dioxide 21 Anion Gap 8.0 BUN 40 H Creatinine 0.97 Est Cr Clr Drug Dosing 45.2 Est GFR ( Amer) 69.6 Est GFR (Non-Af Amer) 60.0 BUN/Creatinine Ratio 41.5 H Glucose 140 H Calcium 9.0 Medications Administered Current Inpatient Medications Acetaminophen (Acetaminophen 500 Mg Tab) 1,000 mg PO Q8H PRN PRN Reason: Pain Stop: 08/15/20 00:57 Albuterol (Albuterol Hfa 8 Gm Inhaler) 2 puffs INH QIDR PRN PRN Reason: Shortness Of Breath Or Wheezing Stop: 08/20/20 10:59 Benzonatate (Benzonatate 100 Mg Capsule) 100 mg PO TID [facility] Stop: 08/16/20 10:44 Last Admin: 07/23/20 08:19 Dose: 100 mg Documented by: Enoxaparin Sodium (Enoxaparin Inj 30 Mg/0.3 Ml Syr) 30 mg SQ BID [facility] Stop: 08/15/20 20:59 Last Admin: 07/23/20 08:20 Dose: 30 mg Documented by: Ergocalciferol (Ergocalciferol 50,000 Units 1250 Mcg Cap) 50,000 units PO Fr@0900 [facility] Stop: 08/19/20 08:59 Last Admin: 07/20/20 09:00 Dose: 50,000 units Documented by: Ferrous Sulfate (Ferrous Sulfate 325 Mg Tab) 325 mg PO QAM [facility] Stop: 08/18/20 08:59 Last Admin: 07/23/20 08:20 Dose: 325 mg Documented by: Heparin Sodium (Porcine) (Heparin 100 Unit/Ml 5ml Flush) 5 ml FLUSH PRN PRN PRN Reason: Flush Stop: 08/17/20 13:50 Hydrocodone Bit/Homatropine Methylb (Hydrocodone/Homatropine Syrup 5mg/1.5mg 5ml Udp) 10 ml PO Q6H [facility] Stop: 08/02/20 13:59 Last Admin: 07/23/20 08:19 Dose: 10 ml Documented by: Dexamethasone 6 mg/ Syringe 1.5 mls @ 1 mls/min IV Q12 [facility] Stop: 07/29/20 20:59 Last Admin: 07/23/20 08:19 Dose: 1 mls/min Documented by: Multivitamins ([facility]amin Tab) [facility] Stop: 08/15/20 08:59 Last Admin: 07/23/20 08:20 Dose: 1 tab Documented by: Ondansetron HCl (Ondansetron Inj 2 Mg/Ml 2 Ml Vial) 4 mg IV Q6H PRN PRN Reason: Nausea Stop: 08/15/20 00:57 Polyethylene Glycol (Polyethylene (Miralax) 17 Gm Pack) 17 gm PO DAILY PRN PRN Reason: Constipation Stop: 08/15/20 00:57 Last Admin: 07/22/20 09:24 Dose: 17 gm Documented by: Tramadol HCl (Tramadol Hcl 50 Mg Tablet) 50 mg PO Q6H PRN PRN Reason: Pain Stop: 08/15/20 00:57 PG Care Time/CCT Total # of Minutes Spent Total Time Spent with Patient: Total time spent is greater than 50% in coordination of care (as documented) at patient's floor/unit and/or counseling patient: Coding Level of Care Code 08725 Subseq Hosp Care Lvl 3 Diagnoses Hypoxemia R09.02 Pneumonia due to 2019 novel coronavirus U07.1; J12.89 Elevated serum creatinine R79.89 Acute dehydration E86.0 Thrombocytosis D47.3 History of right hip hemiarthroplasty Z96.641 Anemia D64.9 Hypertension I10 DVT prophylaxis Z29.9
[2020-07-24] MEDS: HYDROcodone/HOMATROPINE SYRUP 5MG/1.5MG 5ML UDP PO SCH ×4 (02:27→20:00)
[2020-07-24] MEDS: dexAMETHasone 6 MG in SYRINGE 0 ML IV SCH ×2 (09:16→21:52)
[2020-07-24] MEDS: BENZONATATE 100 MG CAPSULE PO SCH ×3 (09:16→21:52)
[2020-07-24] MEDS: ENOXAPARIN INJ 30 MG/0.3 ML SYR SQ SCH ×2 (09:17→21:52)
[2020-07-24] MEDS: MULTIVITAMIN TAB PO SCH (09:17)
[2020-07-24] MEDS: FERROUS SULFATE 325 MG TAB PO SCH (09:17)
--- NOTE | 2020-07-24 10:13 | Hospitalist Progress Note ---
Date of Service July 24, 2020 Assessment & Plan (1) Hypoxemia: Xena Mckeon is a 69 year old woman with PMH of rectal cancer in remission, hypertension, osteoathritis and spinal fusion and recent right hip fracture with replacement on 06/28/2020 who presents with diarrhea fevers and chills, and cough with shortness of breath for five days duration who is COVID positive upon admission. She was discharged to home from [facility] on 07/08. Hypoxemia secondary to Covid-19 pneumonia-initially, she was requiring 4 L nasal cannula initially but was having desaturations to the low 80s with minimal exertion like sitting up in bed for lung exam. Respiratory status worsened on 07/17, continues to be on high flow nasal canula encourage her to lay prone but can only last 30 minutes at a time, but she does it 2-3 times a day she is on 35L and 90% today, slight improvement continue dexamethasone 6mg daily, day 10 will be 07/25 but might continue it a little longer due to being on high flow -Has now completed a 5-day course of remdesivir therapy -Received her convalescent plasma on 07/20 -Continue supplemental O2 to keep pulse ox greater than 92% -Continue Hycodan cough syrup 10 mL every 6 hours scheduled -Continue scheduled Tessalon Tyree (2) Pneumonia due to 2019 novel coronavirus: As above -Blood cultures-no growth to date continue dexamethasone for 10 + days (3) Elevated serum creatinine: Acute kidney injury-resolved after IV fluid hydration Likely was pre renal from diarrhea and dehydration prior to admission Follow BMP in the morning - Cr is 0.97 on 07/23 (4) Acute dehydration: As above, secondary to diarrhea Hydrated and now resolved (5) Thrombocytosis: Platelets elevated in the 500s Secondary to acute phase reactant with acute illness down a little at 457 on 07/23 (6) History of right hip hemiarthroplasty: Had right hip hemiarthroplasty performed on 06/28 PT/OT consults placed-she is allowed to weight-bear as tolerated Posterior hip precautions discussed with the nurse to include no flexion beyond 90 degrees of the hip and no adduction Continue Lovenox 30 mg SQ twice daily for DVT prophylaxis, also continue SCDs Steri-Strips still in place over the wound We will need to see when she is to follow-up with orthopedic surgery Tramadol as needed for pain (7) Anemia: Hemoglobin back up and stable 1/ at 11.7, normocytic Did have recent hip surgery so likely some from acute blood loss anemia on top of chronic anemia Iron studies show anemia of chronic disease but transferrin saturation is mildly low at 12%-mild iron deficiency B12, folate, TSH all normal Follow CBC - started ferrous sulfate once daily (8) Hypertension: Blood pressures were mildly low normal but now are improved with holding lisinopril Continue to hold home lisinopril SBP 112 today (9) DVT prophylaxis: Continue Lovenox 30 mg SQ twice daily which is the dose recommended by orthopedic surgery after recent hip surgery as well SCDs Disposition-continued stay on telemetry, condition is guarded at this time She is a full resuscitation Admission and Anticipated Discharge Date Admission Date: July 16, 2020 Subjective patient feels about the same as yesterday, maybe a little better eating well, slept all night, she is willing to lay prone this morning on 35L and 90% this morning, small improvement she says she is okay with monotony, does not bother her she denies fever, chills, sweats, dyspnea at rest, cough last BM was Thursday (2 days ago) so she will try some Miralax today Review of Systems Review of Systems: All systems reviewed & are unremarkable except as noted in Subjective Physical Exam Constitutional: WD/WN, vitals as above well developed, well nourished and + overweight; no acute distress Neck: trachea midline, no thyromegaly Respiratory: normal respiratory effort, lungs clear to auscultation Cardiovascular: RRR, no murmur, no edema Gastrointestinal (Abdomen): normal bowel sounds, soft, nontender, no hepatosplenomegaly Musculoskeletal: no cyanosis or clubbing, extremities motor strength 5/5 Skin: no rashes, warm and dry Neurologic: patellar DTR's 2+ bilat, sensation intact and PERRL, EOMI, accommodation nl, no face palsy, no dysarthria Psychiatric: A+Ox3, euthymic affect Lymphatic: no cervical or axillary lymphadenopathy Results & Data Results & Data ([facility]) Vital Signs (Past 12 Hours) Vital Signs Temp Pulse Pulse Resp BP Pulse Ox 07/24/20 07:45 73 12 94 07/24/20 05:01 36.4 C L 66 20 112/67 95 07/24/20 03:37 64 18 87 L 07/24/20 01:01 36.4 C L 66 20 122/78 92 07/24/20 00:41 69 07/23/20 23:22 68 20 94 Medications Administered Current Inpatient Medications Acetaminophen (Acetaminophen 500 Mg Tab) 1,000 mg PO Q8H PRN PRN Reason: Pain Stop: 08/15/20 00:57 Albuterol (Albuterol Hfa 8 Gm Inhaler) 2 puffs INH QIDR PRN PRN Reason: Shortness Of Breath Or Wheezing Stop: 08/20/20 10:59 Benzonatate (Benzonatate 100 Mg Capsule) 100 mg PO TID [facility] Stop: 08/16/20 10:44 Last Admin: 07/24/20 09:16 Dose: 100 mg Documented by: Enoxaparin Sodium (Enoxaparin Inj 30 Mg/0.3 Ml Syr) 30 mg SQ BID [facility] Stop: 08/15/20 20:59 Last Admin: 07/24/20 09:17 Dose: 30 mg Documented by: Ergocalciferol (Ergocalciferol 50,000 Units 1250 Mcg Cap) 50,000 units PO Fr@0900 [facility] Stop: 08/19/20 08:59 Last Admin: 07/20/20 09:00 Dose: 50,000 units Documented by: Ferrous Sulfate (Ferrous Sulfate 325 Mg Tab) 325 mg PO QAM [facility] Stop: 08/18/20 08:59 Last Admin: 07/24/20 09:17 Dose: 325 mg Documented by: Heparin Sodium (Porcine) (Heparin 100 Unit/Ml 5ml Flush) 5 ml FLUSH PRN PRN PRN Reason: Flush Stop: 08/17/20 13:50 Hydrocodone Bit/Homatropine Methylb (Hydrocodone/Homatropine Syrup 5mg/1.5mg 5ml Udp) 10 ml PO Q6H [facility] Stop: 08/02/20 13:59 Last Admin: 07/24/20 09:19 Dose: 10 ml Documented by: Dexamethasone 6 mg/ Syringe 1.5 mls @ 1 mls/min IV Q12 [facility] Stop: 07/29/20 20:59 Last Admin: 07/24/20 09:16 Dose: 1 mls/min Documented by: Multivitamins (Multivitamin Tab) 1 tab PO QAM [facility] Stop: 08/15/20 08:59 Last Admin: 07/24/20 09:17 Dose: 1 tab Documented by: Ondansetron HCl (Ondansetron Inj 2 Mg/Ml 2 Ml Vial) 4 mg IV Q6H PRN PRN Reason: Nausea Stop: 08/15/20 00:57 Polyethylene Glycol (Polyethylene (Miralax) 17 Gm Pack) 17 gm PO DAILY PRN PRN Reason: Constipation Stop: 08/15/20 00:57 Last Admin: 07/22/20 09:24 Dose: 17 gm Documented by: Tramadol HCl (Tramadol Hcl 50 Mg Tablet) 50 mg PO Q6H PRN PRN Reason: Pain Stop: 08/15/20 00:57 PG Care Time/CCT Total # of Minutes Spent Total Time Spent with Patient: Total time spent is greater than 50% in coordination of care (as documented) at patient's floor/unit and/or counseling patient: Coding Level of Care Code 74404 Subseq Hosp Care Lvl 2 Diagnoses Hypoxemia R09.02 Pneumonia due to 2019 novel coronavirus U07.1; J12.89 Elevated serum creatinine R79.89 Acute dehydration E86.0 Thrombocytosis D47.3 History of right hip hemiarthroplasty Z96.641 Anemia D64.9 Hypertension I10 DVT prophylaxis Z29.9
[2020-07-25] MEDS: HYDROcodone/HOMATROPINE SYRUP 5MG/1.5MG 5ML UDP PO SCH ×4 (02:05→20:48)
[2020-07-25] MEDS: BENZONATATE 100 MG CAPSULE PO SCH ×3 (10:16→20:48)
[2020-07-25] MEDS: FERROUS SULFATE 325 MG TAB PO SCH (10:16)
[2020-07-25] MEDS: MULTIVITAMIN TAB PO SCH (10:17)
[2020-07-25] MEDS: dexAMETHasone 6 MG in SYRINGE 0 ML IV SCH ×2 (10:17→20:48)
[2020-07-25] MEDS: ENOXAPARIN INJ 30 MG/0.3 ML SYR SQ SCH ×2 (10:17→20:48)
--- NOTE | 2020-07-25 10:25 | Hospitalist Progress Note ---
Date of Service July 25, 2020 Assessment & Plan (1) Hypoxemia: Xena Mckeon is a 69 year old woman with PMH of rectal cancer in remission, hypertension, osteoathritis and spinal fusion and recent right hip fracture with replacement on 06/28/2020 who presents with diarrhea fevers and chills, and cough with shortness of breath for five days duration who is COVID positive upon admission. She was discharged to home from [facility] on 07/08. Hypoxemia secondary to Covid-19 pneumonia-initially, she was requiring 4 L nasal cannula initially but was having desaturations to the low 80s with minimal exertion like sitting up in bed for lung exam. Respiratory status worsened on 07/17, continues to be on high flow nasal canula encourage her to lay prone but can only last 30 minutes at a time, but she does it 2-3 times a day she is on 40L and 90% this morning, desaturated when coughing continue to try to wean continue dexamethasone 6mg daily, day 10 is today, continue longer since she is still on high flow -Has now completed a 5-day course of remdesivir therapy -Received her convalescent plasma on 07/20 -Continue supplemental O2 to keep pulse ox greater than 92% -Continue Hycodan cough syrup 10 mL every 6 hours scheduled -Continue scheduled Michelle Clements (2) Pneumonia due to 2019 novel coronavirus: As above -Blood cultures-no growth to date continue dexamethasone for 10 + days (3) Elevated serum creatinine: Acute kidney injury-resolved after IV fluid hydration Likely was pre renal from diarrhea and dehydration prior to admission Follow BMP in the morning - Cr is 0.97 on 07/23 (4) Acute dehydration: As above, secondary to diarrhea Hydrated and now resolved (5) Thrombocytosis: Platelets elevated in the 500s Secondary to acute phase reactant with acute illness down a little at 457 on 07/23 (6) History of right hip hemiarthroplasty: Had right hip hemiarthroplasty performed on 06/28 PT/OT consults placed-she is allowed to weight-bear as tolerated Posterior hip precautions discussed with the nurse to include no flexion beyond 90 degrees of the hip and no adduction Continue Lovenox 30 mg SQ twice daily for DVT prophylaxis, also continue SCDs Steri-Strips still in place over the wound We will need to see when she is to follow-up with orthopedic surgery Tramadol as needed for pain (7) Anemia: Hemoglobin back up and stable / at 11.7, normocytic Did have recent hip surgery so likely some from acute blood loss anemia on top of chronic anemia Iron studies show anemia of chronic disease but transferrin saturation is mildly low at 12%-mild iron deficiency B12, folate, TSH all normal Follow CBC - started ferrous sulfate once daily (8) Hypertension: Blood pressures were mildly low normal but now are improved with holding lisinopril Continue to hold home lisinopril SBP 115 today (9) DVT prophylaxis: Continue Lovenox 30 mg SQ twice daily which is the dose recommended by orthopedic surgery after recent hip surgery as well SCDs Disposition-continued stay on telemetry, condition is guarded at this time She is a full resuscitation Admission and Anticipated Discharge Date Admission Date: July 16, 2020 Subjective patient coughing a lot this morning, desaturates with coughing did not eat great breakfast as food was cold had to increase her to 100% and 40L due to coughing spell, sat 80% no distress, will have her lay on her stomach no labs today she said she tried to get OOB yesterday with therapy, did not have strength to stand Review of Systems Review of Systems: All systems reviewed & are unremarkable except as noted in Subjective Constitutional: + fatigue and + weakness; no fever Respiratory: + cough, + dyspnea and + dyspnea on exertion; no sputum prod uction Cardiovascular: no chest pain Gastrointestinal: no abdominal pain, no nausea, no vomiting, no constipation and no diarrhea/loose stools Physical Exam Constitutional: WD/WN, vitals as above well developed, well nourished and + overweight; no acute distress Neck: trachea midline, no thyromegaly Respiratory: + cough and + tachypneic; no respiratory distress Auscultation: lungs clear to auscultation bilaterally Cardiovascular: RRR, no murmur, no edema Gastrointestinal (Abdomen): normal bowel sounds, soft, nontender, no hepatosplenomegaly Musculoskeletal: no cyanosis or clubbing, extremities motor strength 5/5 Skin: no rashes, warm and dry Neurologic: patellar DTR's 2+ bilat, sensation intact and PERRL, EOMI, accommodation nl, no face palsy, no dysarthria Psychiatric: A+Ox3, euthymic affect Lymphatic: no cervical or axillary lymphadenopathy Results & Data Results & Data ([facility]) Vital Signs (Past 12 Hours) Vital Signs Temp Pulse Pulse Resp BP BP Pulse Ox 07/25/20 07:53 36.6 C 67 24 115/70 93 07/25/20 06:41 80 20 91 07/25/20 04:42 65 20 92 07/25/20 04:25 71 07/25/20 04:19 36.6 C 63 20 116/77 94 07/25/20 01:49 65 20 94 07/25/20 00:37 63 18 94 07/24/20 23:45 36.6 C 69 20 126/80 97 Medications Administered Current Inpatient Medications Acetaminophen (Acetaminophen 500 Mg Tab) 1,000 mg PO Q8H PRN PRN Reason: Pain Stop: 08/15/20 00:57 Albuterol (Albuterol Hfa 8 Gm Inhaler) 2 puffs INH QIDR PRN PRN Reason: Shortness Of Breath Or Wheezing Stop: 08/20/20 10:59 Last Admin: 07/25/20 01:49 Dose: 2 puffs Documented by: Benzonatate (Benzonatate 100 Mg Capsule) 100 mg PO TID [facility] Stop: 08/16/20 10:44 Last Admin: 07/25/20 10:16 Dose: 100 mg Documented by: Enoxaparin Sodium (Enoxaparin Inj 30 Mg/0.3 Ml Syr) 30 mg SQ BID [facility] Stop: 08/15/20 20:59 Last Admin: 07/25/20 10:17 Dose: 30 mg Documented by: Ergocalciferol (Ergocalciferol 50,000 Units 1250 Mcg Cap) 50,000 units PO Fr@0900 [facility] Stop: 08/19/20 08:59 Last Admin: 07/20/20 09:00 Dose: 50,000 units Documented by: Ferrous Sulfate (Ferrous Sulfate 325 Mg Tab) 325 mg PO QAM [facility] Stop: 08/18/20 08:59 Last Admin: 07/25/20 10:16 Dose: 325 mg Documented by: Heparin Sodium (Porcine) (Heparin 100 Unit/Ml 5ml Flush) 5 ml FLUSH PRN PRN PRN Reason: Flush Stop: 08/17/20 13:50 Hydrocodone Bit/Homatropine Methylb (Hydrocodone/Homatropine Syrup 5mg/1.5mg 5ml Udp) 10 ml PO Q6H [facility] Stop: 08/02/20 13:59 Last Admin: 07/25/20 10:17 Dose: 10 ml Documented by: Dexamethasone 6 mg/ Syringe 1.5 mls @ 1 mls/min IV Q12 [facility] Stop: 07/29/20 20:59 Last Admin: 07/25/20 10:17 Dose: 1 mls/min Documented by: Multivitamins (Multivitamin Tab) 1 tab PO QAM [facility] Stop: 08/15/20 08:59 Last Admin: 07/25/20 10:17 Dose: 1 tab Documented by: Ondansetron HCl (Ondansetron Inj 2 Mg/Ml 2 Ml Vial) 4 mg IV Q6H PRN PRN Reason: Nausea Stop: 08/15/20 00:57 Polyethylene Glycol (Polyethylene (Miralax) 17 Gm Pack) 17 gm PO DAILY PRN PRN Reason: Constipation Stop: 08/15/20 00:57 Last Admin: 07/22/20 09:24 Dose: 17 gm Documented by: Tramadol HCl (Tramadol Hcl 50 Mg Tablet) 50 mg PO Q6H PRN PRN Reason: Pain Stop: 08/15/20 00:57 PG Care Time/CCT Total # of Minutes Spent Total Time Spent with Patient: Total time spent is greater than 50% in coordination of care (as documented) at patient's floor/unit and/or counseling patient: Coding Level of Care Code 12290 Subseq Hosp Care Lvl 2 Diagnoses Hypoxemia R09.02 Pneumonia due to 2019 novel coronavirus U07.1; J12.89 Elevated serum creatinine R79.89 Acute dehydration E86.0 Thrombocytosis D47.3 History of right hip hemiarthroplasty Z96.641 Anemia D64.9 Hypertension I10 DVT prophylaxis Z29.9
[2020-07-25] MEDS ORDERED: COUGH DROP (SUGAR FREE) LOZ 24 LOZ/1 BOX BUCCAL ONE (18:35)
[2020-07-26] MEDS: HYDROcodone/HOMATROPINE SYRUP 5MG/1.5MG 5ML UDP PO SCH ×4 (03:14→20:41)
[2020-07-26] MEDS: dexAMETHasone 6 MG in SYRINGE 0 ML IV SCH ×2 (09:19→20:41)
[2020-07-26] MEDS: FERROUS SULFATE 325 MG TAB PO SCH (09:19)
[2020-07-26] MEDS: ENOXAPARIN INJ 30 MG/0.3 ML SYR SQ SCH ×2 (09:20→20:42)
[2020-07-26] MEDS: BENZONATATE 100 MG CAPSULE PO SCH ×3 (09:20→20:42)
[2020-07-26] MEDS: MULTIVITAMIN TAB PO SCH (09:20)
--- NOTE | 2020-07-26 09:20 | Hospitalist Progress Note ---
Date of Service July 26, 2020 Assessment & Plan (1) Hypoxemia: Xena Mckeon is a 69 year old woman with PMH of rectal cancer in remission, hypertension, osteoathritis and spinal fusion and recent right hip fracture with replacement on 06/28/2020 who presents with diarrhea fevers and chills, and cough with shortness of breath for five days duration who is COVID positive upon admission. She was discharged to home from [facility] on 07/08. Hypoxemia secondary to Covid-19 pneumonia-initially, she was requiring 4 L nasal cannula initially but was having desaturations to the low 80s with minimal exertion like sitting up in bed for lung exam. Respiratory status worsened on 07/17, continues to be on high flow nasal canula encourage her to lay prone but can only last 30 minutes at a time, but she does it 2-3 times a day she is on 40L and 80% this morning, desaturated when coughing continue to try to wean will give Lasix 20mg IV x 1 this morning to try to dry out lungs continue dexamethasone 6mg daily, day 11, stop after 14 days -Has now completed a 5-day course of remdesivir therapy -Received her convalescent plasma on 07/20 -Continue supplemental O2 to keep pulse ox greater than 92% -Continue Hycodan cough syrup 10 mL every 6 hours scheduled -Continue scheduled Michelle Clements (2) Pneumonia due to 2019 novel coronavirus: As above -Blood cultures-no growth to date continue dexamethasone for 14 days (3) Elevated serum creatinine: Acute kidney injury-resolved after IV fluid hydration Likely was pre renal from diarrhea and dehydration prior to admission Cr is 0.97 on 07/23 check tomorrow (4) Acute dehydration: As above, secondary to diarrhea Hydrated and now resolved (5) Thrombocytosis: Platelets elevated in the 500s Secondary to acute phase reactant with acute illness down a little at 457 on 07/23 (6) History of right hip hemiarthroplasty: Had right hip hemiarthroplasty performed on 06/28 PT/OT consults placed-she is allowed to weight-bear as tolerated Posterior hip precautions discussed with the nurse to include no flexion beyond 90 degrees of the hip and no adduction Continue Lovenox 30 mg SQ twice daily for DVT prophylaxis, also continue SCDs Steri-Strips still in place over the wound We will need to see when she is to follow-up with orthopedic surgery Tramadol as needed for pain (7) Anemia: Hemoglobin back up and stable 1/ at 11.7, normocytic Did have recent hip surgery so likely some from acute blood loss anemia on top of chronic anemia Iron studies show anemia of chronic disease but transferrin saturation is mildly low at 12%-mild iron deficiency B12, folate, TSH all normal Follow CBC - started ferrous sulfate once daily (8) Hypertension: Blood pressures were mildly low normal but now are improved with holding lisinopril Continue to hold home lisinopril SBP 130 today (9) DVT prophylaxis: Continue Lovenox 30 mg SQ twice daily which is the dose recommended by orthopedic surgery after recent hip surgery as well SCDs Disposition-continued stay on telemetry, condition is guarded at this time She is a full resuscitation Admission and Anticipated Discharge Date Admission Date: July 16, 2020 Subjective patient says she feels a little better today, minimal improvement on 40L and 80% FiO2 discussed using some Lasix this morning, discussed a terrell to make it easier on her, she refuses says she had a traumatic experience as a child with terrell catheter and she is deathly afraid, she has never had one her whole life told her we can use the Pure wick that is in place now she is eating okay, ate over half her breakfast still not doing great with laying prone Review of Systems Review of Systems: All systems reviewed & are unremarkable except as noted in Subjective Physical Exam Constitutional: WD/WN, vitals as above well developed, well nourished and + overweight; no acute distress Neck: trachea midline, no thyromegaly Respiratory: normal respiratory effort, lungs clear to auscultation + cough; no respiratory distress Auscultation: lungs clear to auscultation bilaterally Cardiovascular: Rate/Rhythm: regular rhythm and + tachycardic Heart Sounds: normal S1 and normal S2; no murmur Extremities: normal capillary refill Gastrointestinal (Abdomen): normal bowel sounds, soft, nontender, no hepatosplenomegaly Musculoskeletal: no cyanosis or clubbing, extremities motor strength 5/5 Skin: no rashes, warm and dry Neurologic: patellar DTR's 2+ bilat, sensation intact and PERRL, EOMI, accommodation nl, no face palsy, no dysarthria Psychiatric: A+Ox3, euthymic affect Lymphatic: no cervical or axillary lymphadenopathy Results & Data Results & Data ([facility]) Vital Signs (Past 12 Hours) Vital Signs Temp Pulse Pulse Pulse Resp BP Pulse Ox 07/26/20 08:09 67 18 94 07/26/20 08:04 36.5 C 68 20 130/80 98 07/26/20 03:34 36.6 C 72 18 131/82 93 07/26/20 02:58 63 20 93 07/26/20 01:43 63 07/25/20 23:29 36.5 C 70 20 123/74 94 07/25/20 22:34 101 H 20 91 Medications Administered Current Inpatient Medications Acetaminophen (Acetaminophen 500 Mg Tab) 1,000 mg PO Q8H PRN PRN Reason: Pain Stop: 08/15/20 00:57 Albuterol (Albuterol Hfa 8 Gm Inhaler) 2 puffs INH QIDR PRN PRN Reason: Shortness Of Breath Or Wheezing Stop: 08/20/20 10:59 Last Admin: 07/25/20 01:49 Dose: 2 puffs Documented by: Benzonatate (Benzonatate 100 Mg Capsule) 100 mg PO TID [facility] Stop: 08/16/20 10:44 Last Admin: 07/25/20 20:48 Dose: 100 mg Documented by: Enoxaparin Sodium (Enoxaparin Inj 30 Mg/0.3 Ml Syr) 30 mg SQ BID [facility] Stop: 08/15/20 20:59 Last Admin: 07/25/20 20:48 Dose: 30 mg Documented by: Ergocalciferol (Ergocalciferol 50,000 Units 1250 Mcg Cap) 50,000 units PO Fr@0900 [facility] Stop: 08/19/20 08:59 Last Admin: 07/20/20 09:00 Dose: 50,000 units Documented by: Ferrous Sulfate (Ferrous Sulfate 325 Mg Tab) 325 mg PO QAM [facility] Stop: 08/18/20 08:59 Last Admin: 07/25/20 10:16 Dose: 325 mg Documented by: Heparin Sodium (Porcine) (Heparin 100 Unit/Ml 5ml Flush) 5 ml FLUSH PRN PRN PRN Reason: Flush Stop: 08/17/20 13:50 Hydrocodone Bit/Homatropine Methylb (Hydrocodone/Homatropine Syrup 5mg/1.5mg 5ml Udp) 10 ml PO Q6H [facility] Stop: 08/02/20 13:59 Last Admin: 07/26/20 03:14 Dose: 10 ml Documented by: Dexamethasone 6 mg/ Syringe 1.5 mls @ 1 mls/min IV Q12 [facility] Stop: 07/29/20 20:59 Last Admin: 07/25/20 20:48 Dose: 1 mls/min Documented by: Furosemide 20 mg/ Syringe 2 mls @ 4 mls/min IV ONE ONE Stop: 07/26/20 09:18 Multivitamins (Multivitamin Tab) 1 tab PO QAM [facility] Stop: 08/15/20 08:59 Last Admin: 07/25/20 10:17 Dose: 1 tab Documented by: Ondansetron HCl (Ondansetron Inj 2 Mg/Ml 2 Ml Vial) 4 mg IV Q6H PRN PRN Reason: Nausea Stop: 08/15/20 00:57 Polyethylene Glycol (Polyethylene (Miralax) 17 Gm Pack) 17 gm PO DAILY PRN PRN Reason: Constipation Stop: 08/15/20 00:57 Last Admin: 07/22/20 09:24 Dose: 17 gm Documented by: Tramadol HCl (Tramadol Hcl 50 Mg Tablet) 50 mg PO Q6H PRN PRN Reason: Pain Stop: 08/15/20 00:57 PG Care Time/CCT Total # of Minutes Spent Total Time Spent with Patient: Total time spent is greater than 50% in coordination of care (as documented) at patient's floor/unit and/or counseling patient: Coding Level of Care Code 89823 Subseq Hosp Care Lvl 2 Diagnoses Hypoxemia R09.02 Pneumonia due to 2019 novel coronavirus U07.1; J12.89 Elevated serum creatinine R79.89 Acute dehydration E86.0 Thrombocytosis D47.3 History of right hip hemiarthroplasty Z96.641 Anemia D64.9 Hypertension I10 DVT prophylaxis Z29.9
[2020-07-26] MEDS ORDERED: FUROSEMIDE 20 MG in SYRINGE 0 ML IV ONE (09:30)
[2020-07-27] MEDS: HYDROcodone/HOMATROPINE SYRUP 5MG/1.5MG 5ML UDP PO SCH ×4 (03:26→19:19)
[2020-07-27 06:17] LABS: Hematocrit (blood only) 33.2 % (37-47); Mean Corpuscular Hemoglobin 30.9 pg (25-34); Mean Corpuscular Hgb Conc 33.1 g/dL (32-36); Mean Corpuscular Volume 93.3 fL (80-100); Mean Platelet Volume 10.1 fL (7.4-10.4); Platelet Count 315 K/uL (130-400); RDW Coefficient of Variation 15.1 % (11.5-14.5); RDW Standard Deviation 50.6 fL (36.4-46.3); Red Blood Count 3.56 M/uL (4.2-5.4); White Blood Count 22.25 K/uL (4.8-10.8)
[2020-07-27 06:59] LABS: BUN Creatinine Ratio 56.2 (10-20); Calcium 9.3 mg/dl (8.5-10.1); Creatinine Clr Calc Pharmacy 48.8 ml/min; Est GFR (African American) 75.1; Est GFR (Non-African American) 64.8; Potassium 4.4 mmol/L (3.5-5.1)
[2020-07-27] MEDS: dexAMETHasone 6 MG in SYRINGE 0 ML IV SCH ×2 (09:05→19:20)
[2020-07-27] MEDS: ERGOCALCIFEROL 50,000 UNITS 1250 MCG CAP PO SCH (09:06)
[2020-07-27] MEDS: ENOXAPARIN INJ 30 MG/0.3 ML SYR SQ SCH ×2 (09:06→19:20)
[2020-07-27] MEDS: FERROUS SULFATE 325 MG TAB PO SCH (09:06)
[2020-07-27] MEDS: MULTIVITAMIN TAB PO SCH (09:06)
[2020-07-27] MEDS: BENZONATATE 100 MG CAPSULE PO SCH ×3 (09:06→19:20)
[2020-07-27] MEDS: POLYETHYLENE (MIRALAX) 17 GM PACK PO PRN (09:08)
--- NOTE | 2020-07-27 16:41 | Hospitalist Progress Note ---
Date of Service July 27, 2020 Assessment & Plan (1) Hypoxemia: Xena Mckeon is a 69 year old woman with PMH of rectal cancer in remission, hypertension, osteoathritis and spinal fusion and recent right hip fracture with replacement on 06/28/2020 who presents with diarrhea fevers and chills, and cough with shortness of breath for five days duration who is COVID positive upon admission. She was discharged to home from [facility] on 07/08. Hypoxemia secondary to Covid-19 pneumonia-initially, she was requiring 4 L nasal cannula initially but was having desaturations to the low 80s with minimal exertion like sitting up in bed for lung exam. Respiratory status worsened on 07/17, continues to be on high flow nasal canula encourage her to lay prone but can only last 30 minutes at a time, but she does it 2-3 times a day she is on 30L and 60% today, desaturates with any type of movement, takes some time to recover continue to try to wean no response to Lasix 20mg IV yesterday, hold further doses continue dexamethasone 6mg daily, day 12, stop after 14 days (07/29) -Has now completed a 5-day course of remdesivir therapy -Received her convalescent plasma on 07/20 -Continue supplemental O2 to keep pulse ox greater than 92% -Continue Hycodan cough syrup 10 mL every 6 hours scheduled -Continue scheduled Tessalon Perlale (2) Pneumonia due to 2019 novel coronavirus: As above -Blood cultures-no growth to date continue dexamethasone for 14 days (3) Elevated serum creatinine: Acute kidney injury-resolved after IV fluid hydration Likely was pre renal from diarrhea and dehydration prior to admission Cr is 0.91 BUN up at 51, likely from Lasix, Hb is stable so do not think it is due to GI bleed, monitor for melena (4) Acute dehydration: As above, secondary to diarrhea Hydrated and now resolved (5) Thrombocytosis: Platelets elevated in the 500s Secondary to acute phase reactant with acute illness down to 351 on 07/27 (6) History of right hip hemiarthroplasty: Had right hip hemiarthroplasty performed on 06/28 PT/OT consults placed-she is allowed to weight-bear as tolerated Posterior hip precautions discussed with the nurse to include no flexion beyond 90 degrees of the hip and no adduction Continue Lovenox 30 mg SQ twice daily for DVT prophylaxis, also continue SCDs Steri-Strips still in place over the wound We will need to see when she is to follow-up with orthopedic surgery Tramadol as needed for pain (7) Anemia: Hemoglobin stable at 11 Did have recent hip surgery so likely some from acute blood loss anemia on top of chronic anemia Iron studies show anemia of chronic disease but transferrin saturation is mildly low at 12%-mild iron deficiency B12, folate, TSH all normal Follow CBC - started ferrous sulfate once daily (8) Hypertension: Blood pressures were mildly low normal but now are improved with holding lisinopril Continue to hold home lisinopril SBP 140's (9) DVT prophylaxis: Continue Lovenox 30 mg SQ twice daily which is the dose recommended by orthopedic surgery after recent hip surgery as well SCDs Disposition-continued stay on telemetry, condition is guarded at this time She is a full resuscitation Admission and Anticipated Discharge Date Admission Date: July 16, 2020 Subjective patient is stable today, about the same as yesterday on 30L and 60% FiO2 however, if she does any type of activity she desaturates and takes some time to recover, need to bump her up to 100% FiO2 reviewed labs, BUN up to 51 from 40, no further Lasix, did not have a great response yesterday other labs stable, WBC continues to be 22k on dexamethasone, Hb is 11 continues to eat well to keep up her strength Review of Systems Review of Systems: All systems reviewed & are unremarkable except as noted in Subjective Physical Exam Constitutional: WD/WN, vitals as above well developed, well nourished and + overweight; no acute distress Neck: trachea midline, no thyromegaly Respiratory: normal respiratory effort, lungs clear to auscultation + cough; no respiratory distress Cardiovascular: RRR, no murmur, no edema Gastrointestinal (Abdomen): normal bowel sounds, soft, nontender, no hepatosplenomegaly Musculoskeletal: no cyanosis or clubbing, extremities motor strength 5/5 Skin: no rashes, warm and dry Neurologic: patellar DTR's 2+ bilat, sensation intact and PERRL, EOMI, accommodation nl, no face palsy, no dysarthria Psychiatric: A+Ox3, euthymic affect Lymphatic: no cervical or axillary lymphadenopathy Results & Data Results & Data ([facility]) Vital Signs (Past 12 Hours) Vital Signs Temp Pulse Pulse Resp BP Pulse Ox 07/27/20 15:30 79 18 92 07/27/20 15:12 77 07/27/20 12:49 97 07/27/20 11:55 36.7 C 75 20 147/99 H 97 07/27/20 11:14 77 20 91 07/27/20 07:45 67 07/27/20 07:18 77 18 92 07/27/20 07:12 36.4 C L 77 20 139/103 H 96 07/27/20 05:08 69 18 92 Laboratory Results Laboratory Results - last 24 hr 07/27/20 07/27/20 05:34 05:34 WBC 22.25 H RBC 3.56 L Hgb 11.0 L Hct 33.2 L MCV 93.3 MCH 30.9 MCHC 33.1 RDW Std Deviation 50.6 H RDW Coeff of Anthony 15.1 H Plt Count 315 MPV 10.1 Sodium 136 Potassium 4.4 Chloride 102 Carbon Dioxide 26 Anion Gap 8.0 BUN 51 H Creatinine 0.91 Est Cr Clr Drug Dosing 48.8 Est GFR ( Amer) 75.1 Est GFR (Non-Af Amer) 64.8 BUN/Creatinine Ratio 56.2 H Glucose 152 H Calcium 9.3 Medications Administered Current Inpatient Medications Acetaminophen (Acetaminophen 500 Mg Tab) 1,000 mg PO Q8H PRN PRN Reason: Pain Stop: 08/15/20 00:57 Albuterol (Albuterol Hfa 8 Gm Inhaler) 2 puffs INH QIDR PRN PRN Reason: Shortness Of Breath Or Wheezing Stop: 08/20/20 10:59 Last Admin: 07/25/20 01:49 Dose: 2 puffs Documented by: Benzonatate (Benzonatate 100 Mg Capsule) 100 mg PO TID [facility] Stop: 08/16/20 10:44 Last Admin: 07/27/20 14:21 Dose: 100 mg Documented by: Enoxaparin Sodium (Enoxaparin Inj 30 Mg/0.3 Ml Syr) 30 mg SQ BID [facility] Stop: 08/15/20 20:59 Last Admin: 07/27/20 09:06 Dose: 30 mg Documented by: Ergocalciferol (Ergocalciferol 50,000 Units 1250 Mcg Cap) 50,000 units PO Fr@0900 [facility] Stop: 08/19/20 08:59 Last Admin: 07/27/20 09:06 Dose: 50,000 units Documented by: Ferrous Sulfate (Ferrous Sulfate 325 Mg Tab) 325 mg PO QAM [facility] Stop: 08/18/20 08:59 Last Admin: 07/27/20 09:06 Dose: 325 mg Documented by: Heparin Sodium (Porcine) (Heparin 100 Unit/Ml 5ml Flush) 5 ml FLUSH PRN PRN PRN Reason: Flush Stop: 08/17/20 13:50 Hydrocodone Bit/Homatropine Methylb (Hydrocodone/Homatropine Syrup 5mg/1.5mg 5ml Udp) 10 ml PO Q6H [facility] Stop: 08/02/20 13:59 Last Admin: 07/27/20 14:21 Dose: 10 ml Documented by: Dexamethasone 6 mg/ Syringe 1.5 mls @ 1 mls/min IV Q12 [facility] Stop: 07/29/20 20:59 Last Admin: 07/27/20 09:05 Dose: 1 mls/min Documented by: Multivitamins (Multivitamin Tab) [facility] [place] Stop: 08/15/20 08:59 Last Admin: 07/27/20 09:06 Dose: 1 tab Documented by: Ondansetron HCl (Ondansetron Inj 2 Mg/Ml 2 Ml Vial) 4 mg IV Q6H PRN PRN Reason: Nausea Stop: 08/15/20 00:57 Polyethylene Glycol (Polyethylene (Miralax) 17 Gm Pack) 17 gm PO DAILY PRN PRN Reason: Constipation Stop: 08/15/20 00:57 Last Admin: 07/27/20 09:08 Dose: 17 gm Documented by: Tramadol HCl (Tramadol Hcl 50 Mg Tablet) 50 mg PO Q6H PRN PRN Reason: Pain Stop: 08/15/20 00:57 PG Care Time/CCT Total # of Minutes Spent Total Time Spent with Patient: Total time spent is greater than 50% in coordination of care (as documented) at patient's floor/unit and/or counseling patient: Coding Level of Care Code 53304 Subseq Hosp Care Lvl 2 Diagnoses Hypoxemia R09.02 Pneumonia due to 2019 novel coronavirus U07.1; J12.89 Elevated serum creatinine R79.89 Acute dehydration E86.0 Thrombocytosis D47.3 History of right hip hemiarthroplasty Z96.641 Anemia D64.9 Hypertension I10 DVT prophylaxis Z29.9
[2020-07-27] MEDS: HEPARIN 100 UNIT/ML 5ML FLUSH FLUSH PRN (19:21)
[2020-07-28] MEDS: HYDROcodone/HOMATROPINE SYRUP 5MG/1.5MG 5ML UDP PO SCH ×4 (02:40→19:33)
[2020-07-28] MEDS: dexAMETHasone 6 MG in SYRINGE 0 ML IV SCH ×2 (09:28→19:33)
[2020-07-28] MEDS: ENOXAPARIN INJ 30 MG/0.3 ML SYR SQ SCH ×2 (09:29→19:33)
[2020-07-28] MEDS: FERROUS SULFATE 325 MG TAB PO SCH (09:29)
[2020-07-28] MEDS: MULTIVITAMIN TAB PO SCH (09:29)
[2020-07-28] MEDS: BENZONATATE 100 MG CAPSULE PO SCH ×3 (09:29→19:34)
--- NOTE | 2020-07-28 10:12 | Hospitalist Progress Note ---
Date of Service July 28, 2020 Assessment & Plan (1) Hypoxemia: Xena Mckeon is a 69 year old woman with PMH of rectal cancer in remission, hypertension, osteoathritis and spinal fusion and recent right hip fracture with replacement on 06/28/2020 who presents with diarrhea fevers and chills, and cough with shortness of breath for five days duration who is COVID positive upon admission. She was discharged to home from [facility] on 07/08. Hypoxemia secondary to Covid-19 pneumonia-initially, she was requiring 4 L nasal cannula initially but was having desaturations to the low 80s with minimal exertion like sitting up in bed for lung exam. Respiratory status worsened on 07/17, continues to be on high flow nasal canula encourage her to lay prone but can only last 30 minutes at a time she is on 30L and 60% today, desaturates with any type of movement, takes some time to recover continue to try to wean she is motivated, wants to try to get OOB to chair even if we have to increase oxygen briefly no response to Lasix when tried, hold further doses continue dexamethasone 6mg daily, day 13, stop after 14 days (07/29) -Has now completed a 5-day course of remdesivir therapy -Received her convalescent plasma on 07/20 -Continue supplemental O2 to keep pulse ox greater than 92% -Continue Hycodan cough syrup 10 mL every 6 hours scheduled -Continue scheduled Silviaon Tyree (2) Pneumonia due to 2019 novel coronavirus: As above -Blood cultures-no growth to date continue dexamethasone for 14 days, last day tomorrow (3) Elevated serum creatinine: Acute kidney injury-resolved after IV fluid hydration Likely was pre renal from diarrhea and dehydration prior to admission Cr is 0.91 on 07/27 BUN up at 51, likely from Lasix, Hb is stable so do not think it is due to GI bleed, monitor for melena (4) Acute dehydration: As above, secondary to diarrhea Hydrated and now resolved (5) Thrombocytosis: Platelets elevated in the 500s Secondary to acute phase reactant with acute illness down to 351 on 07/27 (6) History of right hip hemiarthroplasty: Had right hip hemiarthroplasty performed on 06/28 PT/OT consults placed-she is allowed to weight-bear as tolerated Posterior hip precautions discussed with the nurse to include no flexion beyond 90 degrees of the hip and no adduction Continue Lovenox 30 mg SQ twice daily for DVT prophylaxis, also continue SCDs Steri-Strips still in place over the wound We will need to see when she is to follow-up with orthopedic surgery Tramadol as needed for pain (7) Anemia: Hemoglobin stable at 11 on 07/27 Did have recent hip surgery so likely some from acute blood loss anemia on top of chronic anemia Iron studies show anemia of chronic disease but transferrin saturation is mildly low at 12%-mild iron deficiency B12, folate, TSH all normal Follow CBC - started ferrous sulfate once daily (8) Hypertension: Blood pressures were mildly low normal but now are improved with holding lisinopril resume home lisinopri BP 140/90 today (9) DVT prophylaxis: Continue Lovenox 30 mg SQ twice daily which is the dose recommended by orthopedic surgery after recent hip surgery as well SCDs Disposition-continued stay on telemetry, condition is guarded at this time She is a full resuscitation Admission and Anticipated Discharge Date Admission Date: July 16, 2020 Subjective patient doing well on 30L and 60% while resting, she continues to desaturate but she is willing to try to get up, sit on bedside commode, sit in chair she would like to resume her home lisinopril, BP is 140/90, will resume it today no labs today, stable yesterday she continues to eat well, she is more energetic and optimistic today about her prognosis, moving slowly in the right direction no fever/chills, no fatigue, + weakness, + cough, no chest pain, no GI symptoms Review of Systems Review of Systems: All systems reviewed & are unremarkable except as noted in Subjective Physical Exam Constitutional: WD/WN, vitals as above well developed, well nourished and + overweight; no acute distress Neck: trachea midline, no thyromegaly Respiratory: normal respiratory effort, lungs clear to auscultation + cough; no respiratory distress Cardiovascular: RRR, no murmur, no edema Gastrointestinal (Abdomen): normal bowel sounds, soft, nontender, no hepatosplenomegaly Musculoskeletal: no cyanosis or clubbing, extremities motor strength 5/5 Skin: no rashes, warm and dry Neurologic: patellar DTR's 2+ bilat, sensation intact and PERRL, EOMI, accommodation nl, no face palsy, no dysarthria Psychiatric: A+Ox3, euthymic affect Lymphatic: no cervical or axillary lymphadenopathy Results & Data Results & Data ([facility]) Vital Signs (Past 12 Hours) Vital Signs Temp Pulse Resp BP BP Pulse Ox 07/28/20 07:51 36.6 C 73 16 140/90 93 07/28/20 07:25 77 18 92 07/28/20 03:43 36.4 C L 64 18 137/84 95 07/28/20 03:25 62 18 97 07/27/20 23:24 36.2 C L 65 18 120/69 96 Medications Administered Current Inpatient Medications Acetaminophen (Acetaminophen 500 Mg Tab) 1,000 mg PO Q8H PRN PRN Reason: Pain Stop: 08/15/20 00:57 Albuterol (Albuterol Hfa 8 Gm Inhaler) 2 puffs INH QIDR PRN PRN Reason: Shortness Of Breath Or Wheezing Stop: 08/20/20 10:59 Last Admin: 07/25/20 01:49 Dose: 2 puffs Documented by: Benzonatate (Benzonatate 100 Mg Capsule) 100 mg PO TID [facility] Stop: 08/16/20 10:44 Last Admin: 07/28/20 09:29 Dose: 100 mg Documented by: Enoxaparin Sodium (Enoxaparin Inj 30 Mg/0.3 Ml Syr) 30 mg SQ BID [facility] Stop: 08/15/20 20:59 Last Admin: 07/28/20 09:29 Dose: 30 mg Documented by: Ergocalciferol (Ergocalciferol 50,000 Units 1250 Mcg Cap) 50,000 units PO Fr@0900 [facility] Stop: 08/19/20 08:59 Last Admin: 07/27/20 09:06 Dose: 50,000 units Documented by: Ferrous Sulfate (Ferrous Sulfate 325 Mg Tab) 325 mg PO QAM [facility] Stop: 08/18/20 08:59 Last Admin: 07/28/20 09:29 Dose: 325 mg Documented by: Heparin Sodium (Porcine) (Heparin 100 Unit/Ml 5ml Flush) 5 ml FLUSH PRN PRN PRN Reason: Flush Stop: 08/17/20 13:50 Last Admin: 07/27/20 19:21 Dose: 5 ml Documented by: Hydrocodone Bit/Homatropine Methylb (Hydrocodone/Homatropine Syrup 5mg/1.5mg 5ml Udp) 10 ml PO Q6H [facility] Stop: 08/02/20 13:59 Last Admin: 07/28/20 09:28 Dose: 10 ml Documented by: Dexamethasone 6 mg/ Syringe 1.5 mls @ 1 mls/min IV Q12 [facility] Stop: 07/29/20 20:59 Last Admin: 07/28/20 09:28 Dose: 1 mls/min Documented by: Multivitamins (Multivitamin Tab) 1 tab PO QAM [facility] Stop: 08/15/20 08:59 Last Admin: 07/28/20 09:29 Dose: 1 tab Documented by: Ondansetron HCl (Ondansetron Inj 2 Mg/Ml 2 Ml Vial) 4 mg IV Q6H PRN PRN Reason: Nausea Stop: 08/15/20 00:57 Polyethylene Glycol (Polyethylene (Miralax) 17 Gm Pack) 17 gm PO DAILY PRN PRN Reason: Constipation Stop: 08/15/20 00:57 Last Admin: 07/27/20 09:08 Dose: 17 gm Documented by: Tramadol HCl (Tramadol Hcl 50 Mg Tablet) 50 mg PO Q6H PRN PRN Reason: Pain Stop: 08/15/20 00:57 PG Care Time/CCT Total # of Minutes Spent Total Time Spent with Patient: Total time spent is greater than 50% in coordination of care (as documented) at patient's floor/unit and/or counseling patient: Coding Level of Care Code 33518 Subseq Hosp Care Lvl 2 Diagnoses Hypoxemia R09.02 Pneumonia due to 2019 novel coronavirus U07.1; J12.89 Elevated serum creatinine R79.89 Acute dehydration E86.0 Thrombocytosis D47.3 History of right hip hemiarthroplasty Z96.641 Anemia D64.9 Hypertension I10 DVT prophylaxis Z29.9
[2020-07-28] MEDS: lisinopril 5 MG TAB PO SCH (11:39)
[2020-07-29] MEDS: HYDROcodone/HOMATROPINE SYRUP 5MG/1.5MG 5ML UDP PO SCH ×4 (02:50→20:21)
[2020-07-29] MEDS: BENZONATATE 100 MG CAPSULE PO SCH ×3 (08:21→20:21)
[2020-07-29] MEDS: MULTIVITAMIN TAB PO SCH (08:21)
[2020-07-29] MEDS: FERROUS SULFATE 325 MG TAB PO SCH (08:21)
[2020-07-29] MEDS: lisinopril 5 MG TAB PO SCH (08:21)
[2020-07-29] MEDS: ENOXAPARIN INJ 30 MG/0.3 ML SYR SQ SCH ×2 (08:22→20:21)
[2020-07-29] MEDS: dexAMETHasone 6 MG in SYRINGE 0 ML IV SCH (09:08)
--- NOTE | 2020-07-29 09:08 | Hospitalist Progress Note ---
Date of Service July 29, 2020 Assessment & Plan (1) Hypoxemia: Xena Mckeon is a 69 year old woman with PMH of rectal cancer in remission, hypertension, osteoathritis and spinal fusion and recent right hip fracture with replacement on 06/28/2020 who presents with diarrhea fevers and ch ills, and cough with shortness of breath for five days duration who is COVID positive upon admission. She was discharged to home from [facility] on 07/08. Hypoxemia secondary to Covid-19 pneumonia-initially, she was requiring 4 L nasal cannula initially but was having desaturations to the low 80s with minimal exertion like sitting up in bed for lung exam. Respiratory status worsened on 07/17, continues to be on high flow nasal canula encourage her to lay prone but can only last 30 minutes at a time she is on 35L and 55% today, desaturates with any type of movement, takes some time to recover continue to try to wean, improving slowly she is motivated, wants to try to get OOB to chair even if we have to increase oxygen briefly, she was able to do this on 07/28 therapy working with her no response to Lasix when tried, no need to try again, she is euvolemic dexamethasone 6mg IV q12 the past week, change to daily today (07/29), would quickly taper down and stop over next few days -Has now completed a 5-day course of remdesivir therapy -Received her convalescent plasma on 07/20 -Continue supplemental O2 to keep pulse ox greater than 92% -Continue Hycodan cough syrup 10 mL every 6 hours scheduled -Continue scheduled Tessalon Perles Protonix 40mg daily for GI prophylaxis on steroids (2) Pneumonia due to 2019 novel coronavirus: As above -Blood cultures-no growth to date cut dexamethasone from q12 to daily on 07/29 will change to PO Decadron, stop after a few days if she continues to improve (3) Elevated serum creatinine: Acute kidney injury-resolved after IV fluid hydration Likely was pre renal from diarrhea and dehydration prior to admission Cr is 0.91 on 07/27 BUN up at 51, likely from Lasix, Hb is stable so do not think it is due to GI bleed, monitor for melena (4) Acute dehydration: As above, secondary to diarrhea Hydrated and now resolved (5) Thrombocytosis: Platelets elevated in the 500s Secondary to acute phase reactant with acute illness down to 351 on 07/27 (6) History of right hip hemiarthroplasty: Had right hip hemiarthroplasty performed on 06/28 PT/OT consults placed-she is allowed to weight-bear as tolerated Posterior hip precautions discussed with the nurse to include no flexion beyond 90 degrees of the hip and no adduction Continue Lovenox 30 mg SQ twice daily for DVT prophylaxis, also continue SCDs Steri-Strips still in place over the wound We will need to see when she is to follow-up with orthopedic surgery Tramadol as needed for pain (7) Anemia: Hemoglobin stable at 11 on 07/27 Did have recent hip surgery so likely some from acute blood loss anemia on top of chronic anemia Iron studies show anemia of chronic disease but transferrin saturation is mildly low at 12%-mild iron deficiency B12, folate, TSH all normal Follow CBC - started ferrous sulfate once daily (8) Hypertension: Blood pressures were mildly low normal but now are improved with holding lisinopril resume home lisinopri BP 109/64 (9) DVT prophylaxis: Continue Lovenox 30 mg SQ twice daily which is the dose recommended by orthopedic surgery after recent hip surgery as well SCDs Disposition-continued stay on telemetry, condition is guarded at this time but improving slowly She is a full resuscitation Admission and Anticipated Discharge Date Admission Date: July 16, 2020 Subjective patient sleeping soundly this morning, ate a good breakfast got OOB yesterday in a chair for a while, took a lot of help and she desaturated but eventually recovered today she is on 35L and 55%, no distress or tachypnea no labs today improving slowly each day making urine, moving her bowels, no major complaints today Review of Systems Review of Systems: All systems reviewed & are unremarkable except as noted in Subjective Respiratory: + cough, + dyspnea and + dyspnea on exertion Physical Exam Constitutional: WD/WN, vitals as above well developed, well nourished and + overweight; no acute distress Neck: trachea midline, no thyromegaly Respiratory: + cough; no respiratory distress Auscultation: lungs clear to auscultation bilaterally Cardiovascular: RRR, no murmur, no edema Gastrointestinal (Abdomen): normal bowel sounds, soft, nontender, no hepatosplenomegaly Musculoskeletal: no cyanosis or clubbing, extremities motor strength 5/5 Skin: no rashes, warm and dry Neurologic: patellar DTR's 2+ bilat, sensation intact and PERRL, EOMI, accommodation nl, no face palsy, no dysarthria Psychiatric: A+Ox3, euthymic affect Lymphatic: no cervical or axillary lymphadenopathy Results & Data Results & Data ([facility]) Vital Signs (Past 12 Hours) Vital Signs Temp Pulse Pulse Resp BP BP Pulse Ox 07/29/20 08:10 83 18 90 07/29/20 07:30 36.4 C L 71 20 109/64 90 07/29/20 03:20 36.2 C L 82 24 102/65 91 07/29/20 03:08 83 18 94 07/29/20 00:22 70 07/28/20 23:22 36.3 C L 97 H 22 116/67 90 07/28/20 23:11 81 18 91 Medications Administered Current Inpatient Medications Acetaminophen (Acetaminophen 500 Mg Tab) 1,000 mg PO Q8H PRN PRN Reason: Pain Stop: 08/15/20 00:57 Albuterol (Albuterol Hfa 8 Gm Inhaler) 2 puffs INH QIDR PRN PRN Reason: Shortness Of Breath Or Wheezing Stop: 08/20/20 10:59 Last Admin: 07/25/20 01:49 Dose: 2 puffs Documented by: Benzonatate (Benzonatate 100 Mg Capsule) 100 mg PO TID [facility] Stop: 08/16/20 10:44 Last Admin: 07/29/20 08:21 Dose: 100 mg Documented by: Enoxaparin Sodium (Enoxaparin Inj 30 Mg/0.3 Ml Syr) 30 mg SQ BID [facility] Stop: 08/15/20 20:59 Last Admin: 07/29/20 08:22 Dose: 30 mg Documented by: Ergocalciferol (Ergocalciferol 50,000 Units 1250 Mcg Cap) 50,000 units PO Fr@0900 [facility] Stop: 08/19/20 08:59 Last Admin: 07/27/20 09:06 Dose: 50,000 units Documented by: Ferrous Sulfate (Ferrous Sulfate 325 Mg Tab) 325 mg PO QAM [facility] Stop: 08/18/20 08:59 Last Admin: 07/29/20 08:21 Dose: 325 mg Documented by: Heparin Sodium (Porcine) (Heparin 100 Unit/Ml 5ml Flush) 5 ml FLUSH PRN PRN PRN Reason: Flush Stop: 08/17/20 13:50 Last Admin: 07/27/20 19:21 Dose: 5 ml Documented by: Hydrocodone Bit/Homatropine Methylb (Hydrocodone/Homatropine Syrup 5mg/1.5mg 5ml Udp) 10 ml PO Q6H YNES Stop: 08/02/20 13:59 Last Admin: 07/29/20 08:20 Dose: 10 ml Documented by: Dexamethasone 6 mg/ Syringe 1.5 mls @ 1 mls/min IV Q12 YNES Stop: 07/29/20 20:59 Last Admin: 07/28/20 19:33 Dose: 1 mls/min Documented by: Lisinopril (Lisinopril 5 Mg Tab) 15 mg PO QAM YNES Stop: 08/27/20 10:19 Last Admin: 07/29/20 08:21 Dose: 15 mg Documented by: Multivitamins (Multivitamin Tab) 1 tab PO QAM YNES Stop: 08/15/20 08:59 Last Admin: 07/29/20 08:21 Dose: 1 tab Documented by: Ondansetron HCl (Ondansetron Inj 2 Mg/Ml 2 Ml Vial) 4 mg IV Q6H PRN PRN Reason: Nausea Stop: 08/15/20 00:57 Polyethylene Glycol (Polyethylene (Miralax) 17 Gm Pack) 17 gm PO DAILY PRN PRN Reason: Constipation Stop: 08/15/20 00:57 Last Admin: 07/27/20 09:08 Dose: 17 gm Documented by: Tramadol HCl (Tramadol Hcl 50 Mg Tablet) 50 mg PO Q6H PRN PRN Reason: Pain Stop: 08/15/20 00:57 PG Care Time/CCT Total # of Minutes Spent Total Time Spent with Patient: Total time spent is greater than 50% in coordination of care (as documented) at patient's floor/unit and/or counseling patient: Coding Level of Care Code 15110 Subseq Hosp Care Lvl 3 Diagnoses Hypoxemia R09.02 Pneumonia due to 2019 novel coronavirus U07.1; J12.89 Elevated serum creatinine R79.89 Acute dehydration E86.0 Thrombocytosis D47.3 History of right hip hemiarthroplasty Z96.641 Anemia D64.9 Hypertension I10 DVT prophylaxis Z29.9
[2020-07-30] MEDS: HYDROcodone/HOMATROPINE SYRUP 5MG/1.5MG 5ML UDP PO SCH ×4 (03:00→20:10)
[2020-07-30 06:41] LABS: Hematocrit (blood only) 37.5 % (37-47); Hemoglobin 12.3 g/dL (12.0-16.0); Mean Corpuscular Hemoglobin 30.8 pg (25-34); Mean Corpuscular Hgb Conc 32.8 g/dL (32-36); Mean Platelet Volume 10.9 fL (7.4-10.4); Platelet Count 275 K/uL (130-400); RDW Coefficient of Variation 15.5 % (11.5-14.5); Red Blood Count 3.99 M/uL (4.2-5.4); White Blood Count 21.41 K/uL (4.8-10.8)
[2020-07-30 07:11] LABS: BUN Creatinine Ratio 56.8 (10-20); Calcium 8.9 mg/dl (8.5-10.1); Creatinine Clr Calc Pharmacy 54.8 ml/min; Est GFR (African American) 90.5; Est GFR (Non-African American) 78.1
[2020-07-30] MEDS: FERROUS SULFATE 325 MG TAB PO SCH (08:53)
[2020-07-30] MEDS: lisinopril 5 MG TAB PO SCH (08:53)
[2020-07-30] MEDS: BENZONATATE 100 MG CAPSULE PO SCH ×3 (08:53→20:10)
[2020-07-30] MEDS: dexAMETHasone 4 MG TAB PO SCH (08:54)
[2020-07-30] MEDS: MULTIVITAMIN TAB PO SCH (08:54)
[2020-07-30] MEDS: PANTOprazole 40 MG TAB PO SCH (08:54)
[2020-07-30] MEDS: ENOXAPARIN INJ 30 MG/0.3 ML SYR SQ SCH ×2 (08:54→20:10)
[2020-07-30] MEDS ORDERED: dexAMETHasone 6 MG in SYRINGE 0 ML IV SCH (09:00)
[2020-07-30] MEDS: traMADol HCL 50 MG TABLET PO PRN (21:56)
--- NOTE | 2020-07-30 22:48 | Hospitalist Progress Note ---
Date of Service July 30, 2020 Assessment & Plan (1) Hypoxemia: Xena Mckeon is a 69 year old woman with PMH of rectal cancer in remission, hypertension, osteoathritis and spinal fusion and recent right hip fracture with replacement on 06/28/2020 who presents with diarrhea fevers and ch ills, and cough with shortness of breath for five days duration who is COVID positive upon admission. She was discharged to home from [facility] on 07/08. Hypoxemia secondary to Covid-19 pneumonia-initially, she was requiring 4 L nasal cannula initially but was having desaturations to the low 80s with minimal exertion like sitting up in bed for lung exam. Respiratory status worsened on 07/17, continues to be on high flow nasal canula encourage her to lay prone but can only last 30 minutes at a time she is on 10 liters high flow, desaturates with any type of movement, takes some time to recover continue to try to wean, significant jump from 35 liters the day prior she is motivated, wants to try to get OOB to chair even if we have to increase oxygen briefly, she was able to do this on 07/28 therapy working with her no response to Lasix when tried, no need to try again, she is euvolemic dexamethasone 6mg IV q12 the past week, changed to daily today (07/29), would quickly taper down and stop over next few days -Has now completed a 5-day course of remdesivir therapy -Received her convalescent plasma on 07/20 -Continue supplemental O2 to keep pulse ox greater than 92% -Continue Hycodan cough syrup 10 mL every 6 hours scheduled -Continue scheduled Tessalon Perles Protonix 40mg daily for GI prophylaxis on steroids (2) Pneumonia due to 2019 novel coronavirus: As above -Blood cultures-no growth to date cut dexamethasone from q12 to daily on 07/29 will change to PO Decadron, stop after a few days if she continues to improve (3) Elevated serum creatinine: Acute kidney injury-resolved after IV fluid hydration Likely was pre renal from diarrhea and dehydration prior to admission Cr is 0.91 on 07/27 BUN up at 51, likely from Lasix, Hb is stable so do not think it is due to GI bleed, monitor for melena (4) Acute dehydration: As above, secondary to diarrhea Hydrated and now resolved (5) Thrombocytosis: Platelets elevated in the 500s Secondary to acute phase reactant with acute illness down to 351 on 07/27 (6) History of right hip hemiarthroplasty: Had right hip hemiarthroplasty performed on 06/28 PT/OT consults placed-she is allowed to weight-bear as tolerated Posterior hip precautions discussed with the nurse to include no flexion beyond 90 degrees of the hip and no adduction Continue Lovenox 30 mg SQ twice daily for DVT prophylaxis, also continue SCDs Steri-Strips still in place over the wound We will need to see when she is to follow-up with orthopedic surgery Tramadol as needed for pain (7) Anemia: Hemoglobin stable at 11 on 07/27 Did have recent hip surgery so likely some from acute blood loss anemia on top of chronic anemia Iron studies show anemia of chronic disease but transferrin saturation is mildly low at 12%-mild iron deficiency B12, folate, TSH all normal Follow CBC - started ferrous sulfate once daily (8) Hypertension: Blood pressures were mildly low normal but now are improved with holding lisinopril resume home lisinopri BP at goal (9) DVT prophylaxis: Continue Lovenox 30 mg SQ twice daily which is the dose recommended by orthopedic surgery after recent hip surgery as well SCDs Disposition-continued stay on telemetry, condition is guarded at this time but improving She is a full resuscitation Admission and Anticipated Discharge Date Admission Date: July 16, 2020 Subjective Patient reports doing better. Patient has no new complaints. Review of Systems Review of Systems: All systems reviewed & are unremarkable except as noted in HPI & below Physical Exam Physical Exam: Constitutional: WD/WN, vitals as above well developed, well nourished and + overweight; no acute distress Neck: trachea midline, no thyromegaly Respiratory: no respiratory distress Auscultation: lungs clear to auscultation bilaterally Cardiovascular: RRR, no murmur, no edema Gastrointestinal (Abdomen): normal bowel sounds, soft, nontender, no hepatosplenomegaly Musculoskeletal: no cyanosis or clubbing, extremities motor strength 5/5 Skin: no rashes, warm and dry Neurologic: patellar DTR's 2+ bilat, sensation intact and PERRL, EOMI, accommodation nl, no face palsy, no dysarthria Psychiatric: A+Ox3, euthymic affect Lymphatic: no cervical or axillary lymphadenopathy Results & Data Results & Data ([facility]) Vital Signs (Past 12 Hours) Vital Signs Temp Pulse Resp BP BP Pulse Ox 07/30/20 19:14 36.3 C L 101 H 20 110/68 91 07/30/20 15:57 36.6 C 106 H 24 108/73 91 07/30/20 11:20 36.6 C 100 H 19 100/77 94 PG Care Time/CCT Total # of Minutes Spent Total Time Spent with Patient: Total time spent is greater than 50% in coordination of care (as documented) at patient's floor/unit and/or counseling patient: Coding Level of Care Code 17478 Subseq Hosp Care Lvl 3 Diagnoses Hypoxemia R09.02 Pneumonia due to 2019 novel coronavirus U07.1; J12.89 Elevated serum creatinine R79.89 Acute dehydration E86.0 Thrombocytosis D47.3 History of right hip hemiarthroplasty Z96.641 Anemia D64.9 Hypertension I10 DVT prophylaxis Z29.9 Time Spent (min) 35
[2020-07-31] MEDS: HYDROcodone/HOMATROPINE SYRUP 5MG/1.5MG 5ML UDP PO SCH ×4 (02:59→19:46)
[2020-07-31] MEDS: ENOXAPARIN INJ 30 MG/0.3 ML SYR SQ SCH ×2 (08:57→21:30)
[2020-07-31] MEDS: BENZONATATE 100 MG CAPSULE PO SCH ×3 (08:57→21:30)
[2020-07-31] MEDS: dexAMETHasone 4 MG TAB PO SCH (08:57)
[2020-07-31] MEDS: PANTOprazole 40 MG TAB PO SCH (08:58)
[2020-07-31] MEDS: lisinopril 5 MG TAB PO SCH (08:58)
[2020-07-31] MEDS: FERROUS SULFATE 325 MG TAB PO SCH (08:58)
[2020-07-31] MEDS: MULTIVITAMIN TAB PO SCH (08:58)
--- NOTE | 2020-07-31 16:04 | Hospitalist Progress Note ---
Date of Service July 31, 2020 Assessment & Plan (1) Pneumonia due to 2019 novel coronavirus: Completed remdesivir and received plasma on 07/20. - Tapering dexamethasone; has received >10 days. - Continue supplemental O2 to keep pulse ox greater than 92% - Continue Hycodan cough syrup 10 mL every 6 hours scheduled - Continue scheduled Tessalon Perles - Protonix 40mg daily for GI prophylaxis on steroids (2) Elevated serum creatinine: Acute kidney injury-resolved after IV fluid hydration. Likely was pre- renal from diarrhea and dehydration prior to admission. - Resolved by 07/30 (3) History of right hip hemiarthroplasty: Had right hip hemiarthroplasty performed on 06/28. - PT/OT consults placed-she is allowed to weight-bear as tolerated - Posterior hip precautions discussed with the nurse to include no flexion beyond 90 degrees of the hip and no adduction (4) Hypertension: Blood pressures were mildly low-normal but now are improved with holding lisinopril. - Lisinopril restarted on 07/28 - BP is 90/60 today. Will monitor. (5) Anemia: Did have recent hip surgery so likely some from acute blood loss anemia on top of chronic anemia. Iron studies show anemia of chronic disease but transferrin saturation is mildly low at 12%-mild iron deficiency. B12, folate, TSH all normal. - Started ferrous sulfate once daily on 07/19 - Hgb improved on 07/30 -> 12.3 (6) DVT prophylaxis: - Lovenox 30 mg SQ twice daily which is the dose recommended by orthopedic surgery after recent hip surgery as well Admission and Anticipated Discharge Date Admission Date: July 16, 2020 Subjective Doing well today. Feels like she is improving somewhat. Getting discouraged about still being in the hospital. Reports no fevers/chills, chest pain, abdo ce pain, nausea, or vomiting. Physical Exam Constitutional: WD/WN, vitals as above Eyes: EOM intact bilaterally; no conjunctival abnormality ENMT: external ear and nose normal, oropharynx normal Neck: trachea midline, no thyromegaly normal visual inspection Respiratory: normal respiratory effort, lungs clear to auscultation + labored breathing; no respiratory distress Cardiovascular: RRR, no murmur, no edema Gastrointestinal (Abdomen): Inspection/Auscultation: abdomen normal to inspection; abdomen not distended Musculoskeletal: no cyanosis or clubbing, extremities motor strength 5/5 Skin: no rashes, warm and dry Neurologic: moves all extremities and awake Psychiatric: Orientation: alert, oriented to person and cooperative Results & Data Results & Data ([facility]) Vital Signs (Past 12 Hours) Vital Signs Temp Pulse Resp BP BP Pulse Ox 07/31/20 12:02 35.1 C L 72 18 92/64 L 92 07/31/20 09:07 35.9 C L 99 H 16 117/68 99 07/31/20 05:00 36.6 C 79 20 96/66 L 96 PG Care Time/CCT Total # of Minutes Spent Total Time Spent with Patient: Total time spent is greater than 50% in coordination of care (as documented) at patient's floor/unit and/or counseling patient: Coding Level of Care Code 03346 Subseq Hosp Care Lvl 2 Diagnoses Pneumonia due to 2019 novel coronavirus U07.1; J12.89 Elevated serum creatinine R79.89 History of right hip hemiarthroplasty Z96.641 Hypertension I10 Anemia D64.9 DVT prophylaxis Z29.9
[2020-08-01] MEDS: HYDROcodone/HOMATROPINE SYRUP 5MG/1.5MG 5ML UDP PO SCH ×4 (02:28→21:45)
[2020-08-01 08:59] LABS: BUN Creatinine Ratio 59.9 (10-20); Calcium 9.7 mg/dl (8.5-10.1); Est GFR (African American) 89.1; Est GFR (Non-African American) 76.9; Magnesium 2.6 mg/dl (1.8-2.4)
[2020-08-01] MEDS: BENZONATATE 100 MG CAPSULE PO SCH ×3 (08:59→21:45)
[2020-08-01] MEDS: PANTOprazole 40 MG TAB PO SCH (09:00)
[2020-08-01] MEDS: FERROUS SULFATE 325 MG TAB PO SCH (09:00)
[2020-08-01] MEDS: MULTIVITAMIN TAB PO SCH (09:00)
[2020-08-01] MEDS: dexAMETHasone 4 MG TAB PO SCH (09:00)
[2020-08-01] MEDS: ENOXAPARIN INJ 30 MG/0.3 ML SYR SQ SCH ×2 (09:01→21:45)
[2020-08-01] MEDS: lisinopril 5 MG TAB PO SCH (09:01)
[2020-08-01 10:18] LABS: Hematocrit (blood only) 37.7 % (37-47); Hemoglobin 12.4 g/dL (12.0-16.0); Mean Corpuscular Volume 94.3 fL (80-100); Mean Platelet Volume 10.6 fL (7.4-10.4); Platelet Count 300 K/uL (130-400); RDW Coefficient of Variation 15.8 % (11.5-14.5); RDW Standard Deviation 54.1 fL (36.4-46.3); White Blood Count 20.24 K/uL (4.8-10.8)
[2020-08-01 10:23] LABS: Mean Corpuscular Hgb Conc 32.9 g/dL (32-36)
[2020-08-01 13:15] LABS: Base Excess VBG -1.2 mEq/L; pH VBG 7.43 (7.36-7.41)
[2020-08-01 13:39] LABS: D Dimer 1080 ug/L FEU (0-500)
--- NOTE | 2020-08-01 13:49 | Hospitalist Progress Note ---
Date of Service August 01, 2020 Assessment & Plan (1) Pneumonia due to 2019 novel coronavirus: Completed remdesivir and received plasma on 07/20. - Tapering dexamethasone; has received >10 days. - Continue Hycodan cough syrup 10 mL every 6 hours scheduled - Continue scheduled Tessalon Perles - Protonix 40mg daily for GI prophylaxis on steroids - Continue supplemental O2 to keep pulse ox greater than 92% -> Needing high- flow again today. D-dimer improved, so less likely VTE. VBG shows respiratory alkalosis. CXR, procalcitonin pending. (2) Elevated serum creatinine: Acute kidney injury-resolved after IV fluid hydration. Likely was pre- renal from diarrhea and dehydration prior to admission. - Resolved by 07/30 (3) History of right hip hemiarthroplasty: Had right hip hemiarthroplasty performed on 06/28. - PT/OT consults placed-she is allowed to weight-bear as tolerated - Posterior hip precautions discussed with the nurse to include no flexion beyond 90 degrees of the hip and no adduction (4) Hypertension: Blood pressures were mildly low-normal but now are improved with holding lisinopril. - Lisinopril restarted on 07/28 - BP is 105/75 today. Will monitor. (5) Anemia: Did have recent hip surgery so likely some from acute blood loss anemia on top of chronic anemia. Iron studies show anemia of chronic disease but transferrin saturation is mildly low at 12%-mild iron deficiency. B12, folate, TSH all normal. - Started ferrous sulfate once daily on 07/19 - Hgb improved on 07/30 -> 12.3 (6) DVT prophylaxis: - Lovenox 30 mg SQ twice daily which is the dose recommended by orthopedic surgery after recent hip surgery as well Admission and Anticipated Discharge Date Admission Date: July 16, 2020 Subjective Needing higher O2 today. Very dispirited about her ups and downs. Tearful. Physical Exam Constitutional: WD/WN, vitals as above Eyes: EOM intact bilaterally; no conjunctival abnormality ENMT: external ear and nose normal, oropharynx normal Neck: trachea midline, no thyromegaly normal visual inspection Respiratory: + respiratory distress and + labored breathing Cardiovascular: RRR, no murmur, no edema Gastrointestinal (Abdomen): Inspection/Auscultation: abdomen normal to inspection; abdomen not distended Musculoskeletal: no cyanosis or clubbing, extremities motor strength 5/5 Skin: no rashes, warm and dry Neurologic: moves all extremities and awake Psychiatric: Orientation: alert, oriented to person and cooperative Results & Data Results & Data ([facility]) Vital Signs (Past 12 Hours) Vital Signs Temp Pulse Pulse Pulse Resp BP Pulse Ox 08/01/20 12:09 36.5 C 87 20 105/76 93 08/01/20 10:40 95 H 18 92 08/01/20 08:45 36.6 C 102 H 19 106/77 90 08/01/20 08:28 92 H 20 08/01/20 05:24 70 08/01/20 03:40 36.4 C L 67 18 104/78 13 L PG Care Time/CCT Total # of Minutes Spent Total Time Spent with Patient: Total time spent is greater than 50% in coordination of care (as documented) at patient's floor/unit and/or counseling patient: Coding Level of Care Code 13301 Subseq Hosp Care Lvl 3 Diagnoses Pneumonia due to 2019 novel coronavirus U07.1; J12.89 Elevated serum creatinine R79.89 History of right hip hemiarthroplasty Z96.641 Hypertension I10 Anemia D64.9 DVT prophylaxis Z29.9
--- NOTE | 2020-08-01 14:18 | XRay Report ---
XR chest 1V portable CLINICAL HISTORY: Increased O2 demand. Shortness of breath. COMPARISON STUDY: Chest radiograph and chest CT July 15, 2020. FINDINGS: Left internal jugular [id number] is unchanged in position. Cardiomegaly is again noted. Moderate multifocal bilateral airspace opacities have slightly progressed since exam of July 15, 2020. There has been interval development of small amount of pneumomediastinum. Gas extends into the left chest wall and neck. There is possible trace left apical pneumothorax. IMPRESSION: 1. Interval development a small amount of pneumomediastinum with gas extending into the left chest wa ll and neck. Possible trace left apical pneumothorax. 2. Mild progression of bilateral airspace opacities consistent with an infectious process. ACT 112: Negative or not required by law. Electronically signed by: Markus Murillo M.D. 08/01/2020 2:17 PM
[2020-08-02] MEDS: HYDROcodone/HOMATROPINE SYRUP 5MG/1.5MG 5ML UDP PO SCH ×2 (02:30→09:07)
--- NOTE | 2020-08-02 07:54 | XRay Report ---
XR chest 1V portable HISTORY: 69 years-old Female PTX, pneumomediastinum follow-up study in a patient with left-sided pne umothorax COMPARISON: Chest radiograph 08/01/2020 TECHNIQUE: Portable AP view of the chest FINDINGS: Cardiac mediastinal and hilar silhouettes are unchanged. Left IJ [id number] catheter appears uncha nged. Bilateral airspace opacities appear generally stable from comparison. Trace pleural effusions a re suggested. Decreased subcutaneous emphysema of the left chest with decreased amount of pneumomedia stinum. The previously questioned left apical pneumothorax is not definitively seen. IMPRESSION: 1. Previously noted tiny left apical pneumothorax is not definitively seen. There is decreased amount of subcutaneous emphysema and pneumomediastinum. 2. Bilateral airspace opacities suggestive of multifocal pneumonia redemonstrated. 3. Trace pleural effusions. ACT 112: Negative or not required by law. The above report was generated using voice recognition software. It may contain grammatical, syntax o r spelling errors. Electronically signed by: Duane Partida M.D. 08/02/2020 7:53 AM
[2020-08-02 08:21] LABS: Hematocrit (blood only) 34.7 % (37-47); Hemoglobin 11.6 g/dL (12.0-16.0); Mean Corpuscular Hemoglobin 31.1 pg (25-34); Mean Corpuscular Hgb Conc 33.4 g/dL (32-36); Mean Platelet Volume 10.6 fL (7.4-10.4); Platelet Count 314 K/uL (130-400); RDW Coefficient of Variation 15.8 % (11.5-14.5); RDW Standard Deviation 53.9 fL (36.4-46.3); Red Blood Count 3.73 M/uL (4.2-5.4); White Blood Count 14.98 K/uL (4.8-10.8)
[2020-08-02 09:00] LABS: BUN Creatinine Ratio 54.6 (10-20); Calcium 9.3 mg/dl (8.5-10.1); Creatinine Clr Calc Pharmacy 38.4 ml/min; Est GFR (African American) 59.7; Est GFR (Non-African American) 51.5; Magnesium 2.7 mg/dl (1.8-2.4); Potassium 4.8 mmol/L (3.5-5.1)
[2020-08-02] MEDS: dexAMETHasone 4 MG TAB PO SCH (09:07)
[2020-08-02] MEDS: BENZONATATE 100 MG CAPSULE PO SCH ×3 (09:07→21:01)
[2020-08-02] MEDS: FERROUS SULFATE 325 MG TAB PO SCH (09:07)
[2020-08-02] MEDS: ENOXAPARIN INJ 30 MG/0.3 ML SYR SQ SCH ×2 (09:07→21:01)
[2020-08-02] MEDS: PANTOprazole 40 MG TAB PO SCH (09:07)
[2020-08-02] MEDS: MULTIVITAMIN TAB PO SCH (09:08)
[2020-08-02] MEDS: lisinopril 5 MG TAB PO SCH (09:49)
--- NOTE | 2020-08-02 13:58 | Hospitalist Progress Note ---
Date of Service August 02, 2020 Assessment & Plan (1) Pneumonia due to 2019 novel coronavirus: Completed remdesivir and received plasma on 07/20. - Tapering dexamethasone; has received >10 days. - Continue Hycodan cough syrup 10 mL every 6 hours scheduled - Continue scheduled Tessalon Perles - Protonix 40mg daily for GI prophylaxis on steroids - Continue supplemental O2 to keep pulse ox greater than 92% -> Still high-flow today. D-dimer improved, so less likely VTE. VBG shows respiratory alkalosis. Procalcitonin also negative. CXR on 08/01 showed slight pneumomediastinum and slight pneumothorax. Repeat on CXR 08/02 shows improvement in both of these. Reviewed both images myself. (2) Elevated serum creatinine: Acute kidney injury-resolved after IV fluid hydration. Likely was pre- renal from diarrhea and dehydration prior to admission. - Resolved by 07/30 (3) History of right hip hemiarthroplasty: Had right hip hemiarthroplasty performed on 06/28. - PT/OT consults placed-she is allowed to weight-bear as tolerated - Posterior hip precautions discussed with the nurse to include no flexion beyond 90 degrees of the hip and no adduction (4) Hypertension: Blood pressures were mildly low-normal but now are improved with holding lisinopril. - Lisinopril restarted on 07/28 - BP is 105/75 today. Will monitor. (5) Anemia: Did have recent hip surgery so likely some from acute blood loss anemia on top of chronic anemia. Iron studies show anemia of chronic disease but transferrin saturation is mildly low at 12%-mild iron deficiency. B12, folate, TSH all normal. - Started ferrous sulfate once daily on 07/19 - Hgb improved on 08/02 -> 11.6 - Will give 1 dose of IV iron today. (6) DVT prophylaxis: - Lovenox 30 mg SQ twice daily which is the dose recommended by orthopedic surgery after recent hip surgery as well Admission and Anticipated Discharge Date Admission Date: July 16, 2020 Subjective Feeling tired today. Feeling slightly dismayed and discouraged. Reports no fevers/chills, chest pain, abdominal pain, nausea, or vomiting. Physical Exam Constitutional: WD/WN, vitals as above Eyes: EOM intact bilaterally; no conjunctival abnormality ENMT: external ear and nose normal, oropharynx normal Neck: trachea midline, no thyromegaly normal visual inspection Respiratory: normal respiratory effort, lungs clear to auscultation + respiratory distress and + labored breathing Cardiovascular: RRR, no murmur, no edema Gastrointestinal (Abdomen): Inspection/Auscultation: abdomen normal to inspection; abdomen not distended Musculoskeletal: no cyanosis or clubbing, extremities motor strength 5/5 Skin: no rashes, warm and dry Neurologic: moves all extremities and awake Psychiatric: Orientation: alert, oriented to person and cooperative Affect: + tearful affect Results & Data Results & Data ([facility]) Vital Signs (Past 12 Hours) Vital Signs Temp Pulse Resp BP BP Pulse Ox 08/02/20 12:00 36.4 C L 115 H 18 105/76 90 08/02/20 11:14 109 H 24 92 08/02/20 09:23 36.4 C L 83 12 84/59 L 93 08/02/20 07:46 82 20 95 08/02/20 04:00 36.4 C L 95 H 20 91/65 L 95 08/02/20 03:12 75 18 96 PG Care Time/CCT Total # of Minutes Spent Total Time Spent with Patient: Total time spent is greater than 50% in coordination of care (as documented) at patient's floor/unit and/or counseling patient: Coding Level of Care Code 79092 Subseq Hosp Care Lvl 3 Diagnoses Pneumonia due to 2019 novel coronavirus U07.1; J12.89 Elevated serum creatinine R79.89 History of right hip hemiarthroplasty Z96.641 Hypertension I10 Anemia D64.9 DVT prophylaxis Z29.9
[2020-08-02] MEDS ORDERED: IRON SUCROSE 300 MG in SODIUM CHLORIDE 0.9% 250 ML IV ONE (14:30)
[2020-08-03] MEDS: traMADol HCL 50 MG TABLET PO PRN (00:23)
--- NOTE | 2020-08-03 07:37 | XRay Report ---
XR chest 1V portable HISTORY: 69 years-old Female Hypoxemia acute hypoxia COMPARISON: Chest radiograph 08/02/2020 TECHNIQUE: Portable AP view of the chest FINDINGS: Cardiomediastinal and hilar silhouettes are unchanged. Left IJ [id number] catheter is unchanged. P ossible tiny left apical pneumothorax. Trace pleural effusions suspected. Unchanged interstitial coar sening with patchy bilateral airspace opacities, most pronounced within the mid and lower lung zones. There is no significant change from comparison. Subcutaneous emphysema of the left chest wall with t race pneumomediastinum redemonstrated. The bones appear grossly intact. IMPRESSION: 1. Stable appearance of the bilateral airspace opacities suggestive of multifocal pneumonia. 2. Trace pleural effusions. 3. Mild subcutaneous emphysema of the left chest with pneumomediastinum redemonstrated. 4. Possible tiny left apical pneumothorax. ACT 112: Negative or not required by law. The above report was generated using voice recognition software. It may contain grammatical, syntax o r spelling errors. Electronically signed by: Duane Partida M.D. 08/03/2020 7:36 AM
[2020-08-03 07:59] LABS: Hematocrit (blood only) 37.6 % (37-47); Hemoglobin 12.6 g/dL (12.0-16.0); Mean Corpuscular Hemoglobin 31.3 pg (25-34); Mean Corpuscular Hgb Conc 33.5 g/dL (32-36); Mean Corpuscular Volume 93.3 fL (80-100); Mean Platelet Volume 10.9 fL (7.4-10.4); Platelet Count 289 K/uL (130-400); RDW Coefficient of Variation 16.1 % (11.5-14.5); RDW Standard Deviation 54.4 fL (36.4-46.3); Red Blood Count 4.03 M/uL (4.2-5.4); White Blood Count 16.68 K/uL (4.8-10.8)
[2020-08-03 08:27] LABS: BUN Creatinine Ratio 61.7 (10-20); Calcium 9.4 mg/dl (8.5-10.1); Creatinine Clr Calc Pharmacy 37.5 ml/min; Est GFR (African American) 59.1; Magnesium 2.9 mg/dl (1.8-2.4); Potassium 4.7 mmol/L (3.5-5.1)
[2020-08-03] MEDS: lisinopril 5 MG TAB PO SCH (08:30)
[2020-08-03] MEDS: MULTIVITAMIN TAB PO SCH (08:30)
[2020-08-03] MEDS: ERGOCALCIFEROL 50,000 UNITS 1250 MCG CAP PO SCH (08:30)
[2020-08-03] MEDS: dexAMETHasone 4 MG TAB PO SCH (08:30)
[2020-08-03] MEDS: BENZONATATE 100 MG CAPSULE PO SCH ×3 (08:30→20:34)
[2020-08-03] MEDS: FERROUS SULFATE 325 MG TAB PO SCH (08:31)
[2020-08-03] MEDS: ENOXAPARIN INJ 30 MG/0.3 ML SYR SQ SCH ×2 (08:31→20:34)
--- NOTE | 2020-08-03 16:08 | Hospitalist Progress Note ---
Date of Service August 03, 2020 Assessment & Plan (1) Pneumonia due to 2019 novel coronavirus: Completed remdesivir and received plasma on 07/20. - Tapering dexamethasone; has received >10 days. - Continue Hycodan cough syrup 10 mL every 6 hours scheduled - Continue scheduled Tessalon Perles - Protonix 40mg daily for GI prophylaxis on steroids - Continue supplemental O2 to keep pulse ox greater than 92% -> Still high-flow today. D-dimer improved, so less likely VTE. VBG shows respiratory alkalosis. Procalcitonin also negative. CXR on 08/01 showed slight pneumomediastinum and slight pneumothorax. Repeat on CXR 08/03 is stable. Discussed with pulmonary who feel this continues to be Covid and that supportive care is called. (2) Elevated serum creatinine: Acute kidney injury-resolved after IV fluid hydration. Likely was pre- renal from diarrhea and dehydration prior to admission. - Resolved by 07/30 (3) History of right hip hemiarthroplasty: Had right hip hemiarthroplasty performed on 06/28. - PT/OT consults placed-she is allowed to weight-bear as tolerated - Posterior hip precautions discussed with the nurse to include no flexion beyond 90 degrees of the hip and no adduction (4) Hypertension: Blood pressures were mildly low-normal but now are improved with holding lisinopril. - Lisinopril restarted on 07/28 - BP is 95/70 today. Will monitor. (5) Anemia: Did have recent hip surgery so likely some from acute blood loss anemia on top of chronic anemia. Iron studies show anemia of chronic disease but transferrin saturation is mildly low at 12%-mild iron deficiency. B12, folate, TSH all normal. - Started ferrous sulfate once daily on 07/19 - Hgb improved on 08/02 -> 11.6 - Gave 1 dose of IV iron on 08/02. (6) DVT prophylaxis: - Lovenox 30 mg SQ twice daily which is the dose recommended by orthopedic surgery after recent hip surgery as well Admission and Anticipated Discharge Date Admission Date: July 16, 2020 Subjective Very sad today. She is feeling like she is just not getting better. Physical Exam Constitutional: WD/WN, vitals as above Eyes: EOM intact bilaterally; no conjunctival abnormality ENMT: external ear and nose normal, oropharynx normal Neck: trachea midline, no thyromegaly normal visual inspection Respiratory: normal respiratory effort, lungs clear to auscultation + respiratory distress and + labored breathing Cardiovascular: RRR, no murmur, no edema Gastrointestinal (Abdomen): Inspection/Auscultation: abdomen normal to inspection; abdomen not distended Musculoskeletal: no cyanosis or clubbing, extremities motor strength 5/5 Skin: no rashes, warm and dry Neurologic: moves all extremities and awake Psychiatric: Orientation: alert, oriented to person and cooperative Affect: + tearful affect Results & Data Results & Data ([facility]) Vital Signs (Past 12 Hours) Vital Signs Temp Pulse Pulse Resp BP Pulse Ox 08/03/20 16:01 92 H 22 85 L 08/03/20 15:30 36.4 C L 91 H 18 96/70 L 93 08/03/20 12:03 81 20 95 08/03/20 11:18 36.6 C 90 17 91/69 L 89 L 08/03/20 07:46 80 20 92 08/03/20 07:42 36.4 C L 95 H 92 H 18 96/73 L 93 PG Care Time/CCT Total # of Minutes Spent Total Time Spent with Patient: Total time spent is greater than 50% in coordination of care (as documented) at patient's floor/unit and/or counseling patient: Coding Level of Care Code 92686 Subseq Hosp Care Lvl 2 Diagnoses Pneumonia due to 2019 novel coronavirus U07.1; J12.89 Elevated serum creatinine R79.89 History of right hip hemiarthroplasty Z96.641 Hypertension I10 Anemia D64.9 DVT prophylaxis Z29.9
[2020-08-04 05:55] LABS: Hematocrit (blood only) 36.4 % (37-47); Hemoglobin 12.2 g/dL (12.0-16.0); Mean Corpuscular Hgb Conc 33.5 g/dL (32-36); Mean Corpuscular Volume 92.4 fL (80-100); Mean Platelet Volume 10.7 fL (7.4-10.4); Platelet Count 271 K/uL (130-400); RDW Coefficient of Variation 16.3 % (11.5-14.5); RDW Standard Deviation 53.8 fL (36.4-46.3); Red Blood Count 3.94 M/uL (4.2-5.4); White Blood Count 17.36 K/uL (4.8-10.8)
[2020-08-04 06:21] LABS: BUN Creatinine Ratio 60.9 (10-20); Calcium 8.9 mg/dl (8.5-10.1); Creatinine Clr Calc Pharmacy 30.3 ml/min; Est GFR (African American) 45.4; Est GFR (Non-African American) 39.2; Magnesium 3.3 mg/dl (1.8-2.4); Potassium 4.7 mmol/L (3.5-5.1)
[2020-08-04] MEDS: ENOXAPARIN INJ 30 MG/0.3 ML SYR SQ SCH ×2 (09:19→20:41)
[2020-08-04] MEDS: BENZONATATE 100 MG CAPSULE PO SCH ×3 (09:19→20:41)
[2020-08-04] MEDS: FERROUS SULFATE 325 MG TAB PO SCH (09:19)
[2020-08-04] MEDS: MULTIVITAMIN TAB PO SCH (09:20)
[2020-08-04] MEDS: lisinopril 5 MG TAB PO SCH (09:20)
[2020-08-04] MEDS: SERTRALINE HCL 50 MG TABLET PO SCH (11:38)
[2020-08-04] MEDS: traMADol HCL 50 MG TABLET PO PRN (12:09)
--- NOTE | 2020-08-04 13:32 | Hospitalist Progress Note ---
Date of Service August 04, 2020 Assessment & Plan (1) Depressed: The patient is clearly depressed and going through adjustment/grieving process for her sickness. She has routinely told me she is ready to /feels like dying. - With patient consent, I started sertraline 50 mg PO daily. This will not help in the short term, but hopefully give her more positive outlook in her recovery which I expect will be long. (2) Pneumonia due to 2019 novel coronavirus: Completed remdesivir and received plasma on 07/20. - Stopped dexamethasone on 08/04; had received >10 days. - Continue Hycodan cough syrup 10 mL every 6 hours scheduled - Continue scheduled Tessalon Perles - Protonix 40mg daily for GI prophylaxis - Continue supplemental O2 to keep pulse ox greater than 92% -> Still high-flow today. Checked: * D-dimer -> improved * VBG -> Stable * Procalcitonin -> negative CXR on 08/01 showed slight pneumomediastinum and slight pneumothorax. Repeat on CXR 08/03 is stable. Discussed with pulmonary who feel this continues to be Covid and that supportive care is called. - Discussed with RNs who feel this could be atelectasis as the patient's depression is limiting her motivation. She won't sit in a chair, sit up, use the incentive spirometry, or participate in PT/OT. See above. (3) Elevated serum creatinine: Acute kidney injury-resolved after IV fluid hydration. Likely was pre- renal from diarrhea and dehydration prior to admission. - Resolved by 07/30 - Back up slightly on 08/04; feel it is due to poor PO intake. RN will push fluids today, and I may give a one-time IV bolus if we cannot get her to drink enough. (4) History of right hip hemiarthroplasty: Had right hip hemiarthroplasty performed on 06/28. - PT/OT consults placed-she is allowed to weight-bear as tolerated - Posterior hip precautions discussed with the nurse to include no flexion beyond 90 degrees of the hip and no adduction (5) Hypertension: Blood pressures were mildly low-normal but now are improved with holding lisinopril. - Lisinopril restarted on 07/28 - BP was 95/60 yesterday & today. Will stop ACEi today. (6) Anemia: Did have recent hip surgery so likely some from acute blood loss anemia on top of chronic anemia. Iron studies show anemia of chronic disease but transferrin saturation is mildly low at 12%-mild iron deficiency. B12, folate, TSH all normal. - Started ferrous sulfate once daily on 07/19 - Hgb improved on 08/02 -> 11.6 - Gave 1 dose of IV iron on 08/02. Improved to 12.2 on 08/04. (7) DVT prophylaxis: - Lovenox 30 mg SQ twice daily which is the dose recommended by orthopedic surgery after recent hip surgery as well Admission and Anticipated Discharge Date Admission Date: July 16, 2020 Subjective Very depressed today. Asks me to make her a DNR because she "just wants to ." Reports she is "dying of thirst" though water is next to the bedside. Very tearful. Physical Exam Constitutional: WD/WN, vitals as above Eyes: EOM intact bilaterally; no conjunctival abnormality ENMT: external ear and nose normal, oropharynx normal Neck: trachea midline, no thyromegaly normal visual inspection Respiratory: normal respiratory effort, lungs clear to auscultation + respiratory distress and + labored breathing Cardiovascular: RRR, no murmur, no edema Gastrointestinal (Abdomen): Inspection/Auscultation: abdomen normal to inspection; abdomen not distended Musculoskeletal: no cyanosis or clubbing, extremities motor strength 5/5 Skin: no rashes, warm and dry Neurologic: moves all extremities and awake Psychiatric: Orientation: alert, oriented to person and cooperative Affect: + tearful affect Results & Data Results & Data ([facility]) Vital Signs (Past 12 Hours) Vital Signs Temp Pulse Pulse Resp BP Pulse Ox 08/04/20 10:46 104 H 19 93 08/04/20 10:06 110 H 08/04/20 07:51 36.5 C 100 H 93/60 L 92 08/04/20 07:17 112 H 22 90 08/04/20 04:16 36.5 C 99 H 17 91/70 L 88 L 08/04/20 03:45 99 H 16 93 PG Care Time/CCT Total # of Minutes Spent Total Time Spent with Patient: Total time spent is greater than 50% in coordination of care (as documented) at patient's floor/unit and/or counseling patient: Coding Level of Care Code 27996 Subseq Hosp Care Lvl 3 Diagnoses Depressed F32.9 Pneumonia due to 2019 novel coronavirus U07.1; J12.89 Elevated serum creatinine R79.89 History of right hip hemiarthroplasty Z96.641 Hypertension I10 Anemia D64.9 DVT prophylaxis Z29.9
[2020-08-04] MEDS: ACETAMINOPHEN 325 MG TAB PO SCH ×2 (20:40→23:59)
[2020-08-05] MEDS: ACETAMINOPHEN 325 MG TAB PO SCH ×6 (02:45→22:37)
[2020-08-05] MEDS: ENOXAPARIN INJ 30 MG/0.3 ML SYR SQ SCH ×2 (09:39→19:51)
[2020-08-05] MEDS: BENZONATATE 100 MG CAPSULE PO SCH ×3 (09:39→19:51)
[2020-08-05] MEDS: MULTIVITAMIN TAB PO SCH (09:40)
[2020-08-05] MEDS: FERROUS SULFATE 325 MG TAB PO SCH (09:40)
[2020-08-05] MEDS: SERTRALINE HCL 50 MG TABLET PO SCH (09:40)
--- NOTE | 2020-08-05 12:56 | Hospitalist Progress Note ---
Date of Service August 05, 2020 Assessment & Plan (1) Depressed: The patient is clearly depressed and going through adjustment/grieving process for her sickness. She has routinely told me she is ready to /feels like dying. - With patient consent, switched sertraline to Cymbalta as this has an effect on musculoskeletal pain as well as depression . This will not help in the short term, but hopefully give her more positive outlook in her recovery. Will likely benefit from psych consult and perhaps inpatient treatment. (2) Pneumonia due to 2019 novel coronavirus: Completed remdesivir and received plasma on 07/20. - Stopped dexamethasone on 08/04; had received >10 days. - Continue Hycodan cough syrup 10 mL every 6 hours scheduled - Continue scheduled Tessalon Perles - Protonix 40mg daily for GI prophylaxis - Continue supplemental O2 to keep pulse ox greater than 92% -> Still high-flow today. Checked: * D-dimer -> improved * VBG -> Stable * Procalcitonin -> negative CXR on 08/01 showed slight pneumomediastinum and slight pneumothorax. Repeat on CXR 08/03 is stable. Discussed with pulmonary who feel this continues to be Covid and that supportive care is called. - Discussed with RNs who feel this could be atelectasis as the patient's depression is limiting her motivation. She won't sit in a chair, sit up, use the incentive spirometry, or participate in PT/OT. See above. (3) Elevated serum creatinine: Acute kidney injury-resolved after IV fluid hydration. Likely was pre- renal from diarrhea and dehydration prior to admission. - Resolved by 07/30 - Back up slightly on 08/04; feel it is due to poor PO intake. RN will push fluids today, and I may give a one-time IV bolus if we cannot get her to drink enough. (4) History of right hip hemiarthroplasty: Had right hip hemiarthroplasty performed on 06/28. - PT/OT consults placed-she is allowed to weight-bear as tolerated - Posterior hip precautions discussed with the nurse to include no flexion beyond 90 degrees of the hip and no adduction (5) Hypertension: Blood pressures were mildly low-normal but now are improved with holding lisinopril. - Lisinopril restarted on 07/28 - BP at goal. Will hold ACEi (6) Anemia: Did have recent hip surgery so likely some from acute blood loss anemia on top of chronic anemia. Iron studies show anemia of chronic disease but transferrin saturation is mildly low at 12%-mild iron deficiency. B12, folate, TSH all normal. - Started ferrous sulfate once daily on 07/19 - Hgb improved on 08/02 -> 11.6 - Gave 1 dose of IV iron on 08/02. Improved to 12.2 on 08/04. (7) DVT prophylaxis: - Lovenox 30 mg SQ twice daily which is the dose recommended by orthopedic surgery after recent hip surgery as well Admission and Anticipated Discharge Date Admission Date: July 16, 2020 Subjective Patient reports that she just wants to go to sleep and never wake up. She is agreeable to treatment and is agreebable to discuss with psychiatrist. Review of Systems Review of Systems: All systems reviewed & are unremarkable except as noted in HPI & below Physical Exam Physical Exam: Constitutional: WD/WN, vitals as above well developed, well nourished and + overweight; no acute distress Neck: trachea midline, no thyromegaly Respiratory: no respiratory distress Auscultation: lungs clear to auscultation bilaterally Cardiovascular: RRR, no murmur, no edema Gastrointestinal (Abdomen): normal bowel sounds, soft, nontender, no hepatosplenomegaly Musculoskeletal: no cyanosis or clubbing, extremities motor strength 5/5 Skin: no rashes, warm and dry Neurologic: patellar DTR's 2+ bilat, sensation intact and PERRL, EOMI, accommodation nl, no face palsy, no dysarthria Psychiatric: A+Ox3, euthymic affect Lymphatic: no cervical or axillary lymphadenopathy Results & Data Results & Data ([facility]) Vital Signs (Past 12 Hours) Vital Signs Temp Pulse Pulse Resp BP BP Pulse Ox 08/05/20 11:14 36.3 C L 85 18 104/71 98 08/05/20 08:00 73 08/05/20 07:37 36.4 C L 92 H 18 109/73 94 08/05/20 05:07 36.6 C 80 18 107/69 96 PG Care Time/CCT Total # of Minutes Spent Total Time Spent with Patient: Total time spent is greater than 50% in coordination of care (as documented) at patient's floor/unit and/or counseling patient: Coding Level of Care Code 81692 Subseq Hosp Care Lvl 3 Diagnoses Depressed F32.9 Pneumonia due to 2019 novel coronavirus U07.1; J12.89 Elevated serum creatinine R79.89 History of right hip hemiarthroplasty Z96.641 Hypertension I10 Anemia D64.9 DVT prophylaxis Z29.9 Time Spent (min) 35
[2020-08-05 16:01] LABS: Hematocrit (blood only) 35.4 % (37-47); Hemoglobin 11.5 g/dL (12.0-16.0); Mean Corpuscular Hemoglobin 30.6 pg (25-34); Mean Corpuscular Hgb Conc 32.5 g/dL (32-36); Mean Corpuscular Volume 94.1 fL (80-100); Mean Platelet Volume 10.6 fL (7.4-10.4); Platelet Count 247 K/uL (130-400); RDW Coefficient of Variation 16.4 % (11.5-14.5); RDW Standard Deviation 56.2 fL (36.4-46.3); Red Blood Count 3.76 M/uL (4.2-5.4); White Blood Count 14.98 K/uL (4.8-10.8)
[2020-08-05 16:15] LABS: BUN Creatinine Ratio 61.7 (10-20); Est GFR (African American) 42.8; Est GFR (Non-African American) 36.9; Magnesium 3.2 mg/dl (1.8-2.4); Potassium 4.6 mmol/L (3.5-5.1)
[2020-08-06] MEDS: ACETAMINOPHEN 325 MG TAB PO SCH ×4 (03:11→15:16)
[2020-08-06] MEDS: MULTIVITAMIN TAB PO SCH (07:46)
[2020-08-06] MEDS: FERROUS SULFATE 325 MG TAB PO SCH (07:46)
[2020-08-06] MEDS: BENZONATATE 100 MG CAPSULE PO SCH ×3 (07:46→20:38)
[2020-08-06] MEDS: ENOXAPARIN INJ 30 MG/0.3 ML SYR SQ SCH ×2 (07:47→21:14)
[2020-08-06] MEDS: DULoxetine HCL 30 MG CAP PO SCH (07:47)
[2020-08-06 07:50] LABS: Hematocrit (blood only) 34.2 % (37-47); Hemoglobin 11.1 g/dL (12.0-16.0); Mean Corpuscular Hgb Conc 32.5 g/dL (32-36); Mean Corpuscular Volume 95.5 fL (80-100); Mean Platelet Volume 10.8 fL (7.4-10.4); Platelet Count 251 K/uL (130-400); RDW Coefficient of Variation 16.5 % (11.5-14.5); RDW Standard Deviation 57.2 fL (36.4-46.3); Red Blood Count 3.58 M/uL (4.2-5.4); White Blood Count 11.91 K/uL (4.8-10.8)
[2020-08-06 08:17] LABS: BUN Creatinine Ratio 64.2 (10-20); Calcium 9.4 mg/dl (8.5-10.1); Creatinine Clr Calc Pharmacy 33.4 ml/min; Est GFR (African American) 52.7; Est GFR (Non-African American) 45.5; Potassium 4.4 mmol/L (3.5-5.1)
[2020-08-06] MEDS: LACTATED RINGER'S 1,000 ML IV SCH ×2 (08:42→20:38)
--- NOTE | 2020-08-06 11:50 | Psychiatric Consultation ---
Date of Consultation August 06, 2020 Impression / Recommendations Impression 69 yo female multiple medical conditions readmit to [facility] from rehab setting. She makes passive suicidal statements when in pain and is unmotivated to care. Hopefully her MS will improve off of steroids and also with addition of Cymbalta which is a good choice. Defer pain management to primary team. Would wait for N to improve before any increase in Cymbalta to 60 mg. Will follow, I do not view patient as acutely suicidal and in need of inpatient psychiatric hospitalization at this time, plus mobility/other issues would limit ability to be accepted to an inpatient unit. liaison can work with patient on therapy services if willing. Risk Factors Assessment Do You Have Access To A Gun?: No Psych History Identifying Data 69 yo female, hx of anal CA (in remission), spinal fusion, s/p hip fx and surgery, positive for COVID from [facility]. Liaison and myself met with patient by phone due to COVID isolation/pneumonia. Consult is by Dr. Brizuela for depression. Chief Complaint "I'm just in so much pain--my hip, my back. I don't want to live like this". History of Present Illness Recognizes that depression has progressed over past month as she is very lonely and frustrated with surviving CA but having to deal with chronic back issues and fall with fx. She had been transferred to [facility] for rehab and then testing positive for COVID. Her breathing is improved per patient but she has no energy or interest in doing things. Staff concerned that somewhat resistant to get OOB and made statements about wanting to . The patient denies intent or plan to harm herself, just states that hard to think ahead when she is so uncomfortable in the moment. "I'm just tired of trying". Sleep varies. Attributes her difficulty eating/N to pain. She denies any hx of psychosis or bipolar. She reports that relatively unaware of taking Zoloft or what it was for and being transitioned recently to Cymbalta 30 mg. Past Psychiatric History Previous Psych History: denied Do You Have Access To A Gun?: No Allergies Allergy/AdvReac Type Severity Reaction Status Date / Time No Known Allergies Allergy Verified 07/15/20 21:31 Home Medications Medication Instructions Recorded Confirmed Type multivitamin 1 tab PO QAM 09/28/19 07/15/20 History lisinopril 10 mg tablet 15 mg PO QAM tab 03/02/20 07/15/20 History acetaminophen 1,000 mg PO Q8H PRN 07/15/20 07/15/20 History enoxaparin 40 mg SUBCUT DAILY 07/15/20 07/15/20 History ergocalciferol (vitamin D2) 50,000 unit PO WK 07/15/20 07/15/20 History tramadol 50 - 100 mg PO Q6H PRN 07/15/20 07/15/20 History Family History none reported Substance Abuse History denied Personal History Living Arrangements: Home (Chris) Childhood: 2 sisters are main support Employment Status: [employer] Employed ([employer] until 2 months ago) Marital Status: Single Number Of Children: none Beliefs That Will Affect Care: None History of Legal Problems: denied Psychological Trauma History Comment: none reported Patient History Medical History Arthritis of spine Bowel habit changes URGENCY - R/T TO CHEMO AND RADIATION -- doing better currently Dry mouth RESIDUAL EFFECT FROM CHEMO AND RADIATION Fracture, hip unsure of how and was found on xray History of anal cancer HAD CHEMO AND RADIATION - 2018 TREATED [facility]; Hypertension Surgical History History of lumbar spinal fusion chronic back pain History of open reduction and internal fixation (ORIF) procedure RIGHT ELBOW History of right hip hemiarthroplasty History of vascular access device MEDIPORT IN PLACE - has flushed every 6 weeks Hx of knee surgery left X4; ONE SURGERY FOR PATELLA REMOVAL Family History Mother Family history of diabetes mellitus Sister Family history of diabetes mellitus Social History Smoking Status: Never smoker Second Hand Exposure: No; Hx Alcohol Use: Yes Alcohol type: wine Hx Substance Use: No Preferred Language: Nicaraguan Communication Ability: Effective Event Marketing Assistant Required: No Beliefs That Will Affect Care: None marital status: Single Current Living Situation: Alone Current Living Situation Comment: sister will stay with her Feels Safe at Home: Yes Assistive Devices: Oxygen - Continuous Physical Exam Psychiatric: limited as phone only Orientation: alert, oriented to person, oriented to place and cooperative speech is soft, slow. "pretty low" Thought Process: + concrete thought process Thought Content: no delusions Suicidal Thoughts: denies suicidal thoughts (she has passive wish due to medical circumstance) Homicidal Thoughts: denies homicidal thoughts Hallucinations: no auditory hallucinations and no visual hallucinations Insight: + limited insight Judgement: + limited judgement Vital Signs (Past 24 Hours): Last Vital Signs Temp 36.6 C 08/06/20 11:23 Pulse 105 H 08/06/20 11:23 Resp 16 08/06/20 11:23 BP 90/78 L 08/06/20 11:23 Pulse Ox 100 08/06/20 11:23 Review of Systems All systems reviewed & are unremarkable except as noted in HPI & below Results & Data (PSY) Medications Administered Acetaminophen (Acetaminophen 325 Mg Tab) 650 mg PO Q4H [facility] Stop: 08/06/20 18:59 Last Admin: 08/06/20 10:09 Dose: Not Given Documented by: [id number] Admin: 08/06/20 07:46 Dose: Not Given Documented by: [id number] Admin: 08/06/20 03:11 Dose: Not Given Documented by: [id number] Admin: 08/05/20 22:37 Dose: Not Given Documented by: [id number] Admin: 08/05/20 18:49 Dose: Not Given Documented by: [id number] Admin: 08/05/20 13:52 Dose: 650 mg Documented by: [id number] Admin: 08/05/20 13:51 Dose: Not Given Documented by: [id number] Admin: 08/05/20 08:00 Dose: 650 mg Documented by: [id number] Admin: 08/05/20 02:45 Dose: Not Given Documented by: [id number] Admin: 08/04/20 23:59 Dose: Not Given Documented by: [id number] Admin: 08/04/20 20:40 Dose: 650 mg Documented by: [id number] Albuterol (Albuterol Hfa 8 Gm Inhaler) 2 puffs INH QIDR PRN PRN Reason: Shortness Of Breath Or Wheezing Stop: 08/20/20 10:59 Last Admin: 07/25/20 01:49 Dose: 2 puffs Documented by: [id number] Benzonatate (Benzonatate 100 Mg Capsule) 100 mg PO TID YNES Stop: 08/16/20 10:44 Last Admin: 08/06/20 07:46 Dose: Not Given Documented by: [id number] Admin: 08/05/20 19:51 Dose: 100 mg Documented by: [id number] Admin: 08/05/20 13:52 Dose: 100 mg Documented by: [id number] Admin: 08/05/20 09:39 Dose: 100 mg Documented by: [id number] Admin: 08/04/20 20:41 Dose: 100 mg Documented by: [id number] Admin: 08/04/20 14:14 Dose: 100 mg Documented by: [id number] Admin: 08/04/20 09:19 Dose: 100 mg Documented by: [id number] Admin: 08/03/20 20:34 Dose: 100 mg Documented by: [id number] Admin: 08/03/20 13:33 Dose: Not Given Documented by: [id number] Admin: 08/03/20 08:30 Dose: 100 mg Documented by: [id number] Admin: 08/02/20 21:01 Dose: 100 mg Documented by: [id number] Admin: 08/02/20 13:53 Dose: 100 mg Documented by: [id number] Admin: 08/02/20 09:07 Dose: 100 mg Documented by: [id number] Admin: 08/01/20 21:45 Dose: 100 mg Documented by: [id number] Admin: 08/01/20 15:01 Dose: 100 mg Documented by: [id number] Admin: 08/01/20 08:59 Dose: 100 mg Documented by: [id number] Admin: 07/31/20 21:30 Dose: 100 mg Documented by: [id number] Admin: 07/31/20 13:53 Dose: 100 mg Documented by: [id number] Admin: 07/31/20 08:57 Dose: 100 mg Documented by: [id number] Admin: 07/30/20 20:10 Dose: 100 mg Documented by: [id number] Admin: 07/30/20 14:55 Dose: 100 mg Documented by: [id number] Admin: 07/30/20 08:53 Dose: 100 mg Documented by: [id number] Admin: 07/29/20 20:21 Dose: 100 mg Documented by: [id number] Admin: 07/29/20 14:29 Dose: 100 mg Documented by: [id number] Admin: 07/29/20 08:21 Dose: 100 mg Documented by: [id number] Admin: 07/28/20 19:34 Dose: 100 mg Documented by: [id number] Admin: 07/28/20 14:50 Dose: 100 mg Documented by: [id number] Admin: 07/28/20 09:29 Dose: 100 mg Documented by: [id number] Admin: 07/27/20 19:20 Dose: 100 mg Documented by: [id number] Admin: 07/27/20 14:21 Dose: 100 mg Documented by: [id number] Admin: 07/27/20 09:06 Dose: 100 mg Documented by: [id number] Admin: 07/26/20 20:42 Dose: 100 mg Documented by: [id number] Admin: 07/26/20 13:39 Dose: 100 mg Documented by: [id number] Admin: 07/26/20 09:20 Dose: 100 mg Documented by: [id number] Admin: 07/25/20 20:48 Dose: 100 mg Documented by: [id number] Admin: 07/25/20 16:17 Dose: 100 mg Documented by: [id number] Admin: 07/25/20 10:16 Dose: 100 mg Documented by: [id number] Admin: 07/24/20 21:52 Dose: 100 mg Documented by: [id number] Admin: 07/24/20 14:18 Dose: 100 mg Documented by: [id number] Admin: 07/24/20 09:16 Dose: 100 mg Documented by: [id number] Admin: 07/23/20 19:13 Dose: 100 mg Documented by: [id number] Admin: 07/23/20 13:34 Dose: 100 mg Documented by: [id number] Admin: 07/23/20 08:19 Dose: 100 mg Documented by: [id number] Admin: 07/22/20 20:49 Dose: 100 mg Documented by: [id number] Admin: 07/22/20 14:30 Dose: 100 mg Documented by: [id number] Admin: 07/22/20 08:51 Dose: 100 mg Documented by: [id number] Admin: 07/21/20 20:11 Dose: 100 mg Documented by: [id number] Admin: 07/21/20 14:25 Dose: 100 mg Documented by: [id number] Admin: 07/21/20 08:25 Dose: 100 mg Documented by: [id number] Admin: 07/20/20 20:50 Dose: 100 mg Documented by: [id number] Admin: 07/20/20 15:52 Dose: 100 mg Documented by: [id number] Admin: 07/20/20 09:01 Dose: 100 mg Documented by: [id number] Admin: 07/19/20 20:15 Dose: 100 mg Documented by: [id number] Admin: 07/19/20 13:39 Dose: 100 mg Documented by: [id number] Admin: 07/19/20 08:46 Dose: 100 mg Documented by: [id number] Admin: 07/18/20 20:29 Dose: 100 mg Documented by: [id number] Admin: 07/18/20 13:30 Dose: 100 mg Documented by: [id number] Admin: 07/18/20 08:03 Dose: 100 mg Documented by: [id number] Admin: 07/17/20 20:34 Dose: 100 mg Documented by: [id number] Admin: 07/17/20 14:15 Dose: 100 mg Documented by: [id number] Admin: 07/17/20 12:07 Dose: 100 mg Documented by: [id number] Duloxetine HCl (Duloxetine Hcl 30 Mg Cap) 30 mg PO QAM YNES Stop: 09/05/20 08:59 Last Admin: 08/06/20 07:47 Dose: 30 mg Documented by: [id number] Enoxaparin Sodium (Enoxaparin Inj 30 Mg/0.3 Ml Syr) 30 mg SQ BID YNES Stop: 08/15/20 20:59 Last Admin: 08/06/20 07:47 Dose: 30 mg Documented by: [id number] Admin: 08/05/20 19:51 Dose: 30 mg Documented by: [id number] Admin: 08/05/20 09:39 Dose: 30 mg Documented by: [id number] Admin: 08/04/20 20:41 Dose: 30 mg Documented by: [id number] Admin: 08/04/20 09:19 Dose: 30 mg Documented by: [id number] Admin: 08/03/20 20:34 Dose: 30 mg Documented by: [id number] Admin: 08/03/20 08:31 Dose: 30 mg Documented by: [id number] Admin: 08/02/20 21:01 Dose: 30 mg Documented by: [id number] Admin: 08/02/20 09:07 Dose: 30 mg Documented by: [id number] Admin: 08/01/20 21:45 Dose: 30 mg Documented by: [id number] Admin: 08/01/20 09:01 Dose: 30 mg Documented by: [id number] Admin: 07/31/20 21:30 Dose: 30 mg Documented by: [id number] Admin: 07/31/20 08:57 Dose: 30 mg Documented by: [id number] Admin: 07/30/20 20:10 Dose: 30 mg Documented by: [id number] Admin: 07/30/20 08:54 Dose: 30 mg Documented by: [id number] Admin: 07/29/20 20:21 Dose: 30 mg Documented by: [id number] Admin: 07/29/20 08:22 Dose: 30 mg Documented by: [id number] Admin: 07/28/20 19:33 Dose: 30 mg Documented by: [id number] Admin: 07/28/20 09:29 Dose: 30 mg Documented by: [id number] Admin: 07/27/20 19:20 Dose: 30 mg Documented by: [id number] Admin: 07/27/20 09:06 Dose: 30 mg Documented by: [id number] Admin: 07/26/20 20:42 Dose: 30 mg Documented by: [id number] Admin: 07/26/20 09:20 Dose: 30 mg Documented by: [id number] Admin: 07/25/20 20:48 Dose: 30 mg Documented by: [id number] Admin: 07/25/20 10:17 Dose: 30 mg Documented by: [id number] Admin: 07/24/20 21:52 Dose: 30 mg Documented by: [id number] Admin: 07/24/20 09:17 Dose: 30 mg Documented by: [id number] Admin: 07/23/20 19:14 Dose: 30 mg Documented by: [id number] Admin: 07/23/20 08:20 Dose: 30 mg Documented by: [id number] Admin: 07/22/20 20:49 Dose: 30 mg Documented by: [id number] Admin: 07/22/20 08:50 Dose: 30 mg Documented by: [id number] Admin: 07/21/20 20:12 Dose: 30 mg Documented by: [id number] Admin: 07/21/20 08:25 Dose: 30 mg Documented by: [id number] Admin: 07/20/20 20:50 Dose: 30 mg Documented by: [id number] Admin: 07/20/20 09:01 Dose: 30 mg Documented by: [id number] Admin: 07/19/20 20:14 Dose: 30 mg Documented by: [id number] Admin: 07/19/20 08:46 Dose: 30 mg Documented by: [id number] Admin: 07/18/20 20:31 Dose: 30 mg Documented by: [id number] Admin: 07/18/20 08:03 Dose: 30 mg Documented by: [id number] Admin: 07/17/20 20:34 Dose: 30 mg Documented by: [id number] Admin: 07/17/20 09:06 Dose: 30 mg Documented by: [id number] Admin: 07/16/20 22:08 Dose: 30 mg Documented by: [id number] Ergocalciferol (Ergocalciferol 50,000 Units 1250 Mcg Cap) 50,000 units PO Fr@0900 [facility] Stop: 08/19/20 08:59 Last Admin: 08/03/20 08:30 Dose: 50,000 units Documented by: [id number] Admin: 07/27/20 09:06 Dose: 50,000 units Documented by: [id number] Admin: 07/20/20 09:00 Dose: 50,000 units Documented by: [id number] Ferrous Sulfate (Ferrous Sulfate 325 Mg Tab) 325 mg PO QAM [facility] Stop: 08/18/20 08:59 Last Admin: 08/06/20 07:46 Dose: Not Given Documented by: [id number] Admin: 08/05/20 09:40 Dose: 325 mg Documented by: [id number] Admin: 08/04/20 09:19 Dose: 325 mg Documented by: [id number] Admin: 08/03/20 08:31 Dose: 325 mg Documented by: [id number] Admin: 08/02/20 09:07 Dose: 325 mg Documented by: [id number] Admin: 08/01/20 09:00 Dose: 325 mg Documented by: [id number] Admin: 07/31/20 08:58 Dose: 325 mg Documented by: [id number] Admin: 07/30/20 08:53 Dose: 325 mg Documented by: [id number] Admin: 07/29/20 08:21 Dose: 325 mg Documented by: [id number] Admin: 07/28/20 09:29 Dose: 325 mg Documented by: [id number] Admin: 07/27/20 09:06 Dose: 325 mg Documented by: [id number] Admin: 07/26/20 09:19 Dose: 325 mg Documented by: [id number] Admin: 07/25/20 10:16 Dose: 325 mg Documented by: [id number] Admin: 07/24/20 09:17 Dose: 325 mg Documented by: [id number] Admin: 07/23/20 08:20 Dose: 325 mg Documented by: [id number] Admin: 07/22/20 08:51 Dose: 325 mg Documented by: [id number] Admin: 07/21/20 08:25 Dose: 325 mg Documented by: [id number] Admin: 07/20/20 09:00 Dose: 325 mg Documented by: [id number] Admin: 07/19/20 08:47 Dose: 325 mg Documented by: [id number] Heparin Sodium (Porcine) (Heparin 100 Unit/Ml 5ml Flush) 5 ml FLUSH PRN PRN PRN Reason: Flush Stop: 08/17/20 13:50 Last Admin: 07/27/20 19:21 Dose: 5 ml Documented by: [id number] Lactated Ringer's (Lr) 1,000 mls @ 80 mls/hr IV .[id number] YNES Stop: 09/05/20 08:29 Last Admin: 08/06/20 08:42 Dose: 80 mls/hr Documented by: [id number] Multivitamins (Multivitamin Tab) 1 tab PO QAM YNES Stop: 08/15/20 08:59 Last Admin: 08/06/20 07:46 Dose: Not Given Documented by: [id number] Admin: 08/05/20 09:40 Dose: 1 tab Documented by: [id number] Admin: 08/04/20 09:20 Dose: 1 tab Documented by: [id number] Admin: 08/03/20 08:30 Dose: 1 tab Documented by: [id number] Admin: 08/02/20 09:08 Dose: 1 tab Documented by: [id number] Admin: 08/01/20 09:00 Dose: 1 tab Documented by: [id number] Admin: 07/31/20 08:58 Dose: 1 tab Documented by: [id number] Admin: 07/30/20 08:54 Dose: 1 tab Documented by: [id number] Admin: 07/29/20 08:21 Dose: 1 tab Documented by: [id number] Admin: 07/28/20 09:29 Dose: 1 tab Documented by: [id number] Admin: 07/27/20 09:06 Dose: 1 tab Documented by: [id number] Admin: 07/26/20 09:20 Dose: 1 tab Documented by: [id number] Admin: 07/25/20 10:17 Dose: 1 tab Documented by: [id number] Admin: 07/24/20 09:17 Dose: 1 tab Documented by: [id number] Admin: 07/23/20 08:20 Dose: 1 tab Documented by: [id number] Admin: 07/22/20 08:51 Dose: 1 tab Documented by: [id number] Admin: 07/21/20 08:25 Dose: 1 tab Documented by: [id number] Admin: 07/20/20 08:59 Dose: 1 tab Documented by: [id number] Admin: 07/19/20 08:47 Dose: 1 tab Documented by: [id number] Admin: 07/18/20 08:04 Dose: 1 tab Documented by: [id number] Admin: 07/17/20 09:07 Dose: 1 tab Documented by: [id number] Admin: 07/16/20 07:35 Dose: 1 tab Documented by: [id number] Polyethylene Glycol (Polyethylene (Miralax) 17 Gm Pack) 17 gm PO DAILY PRN PRN Reason: Constipation Stop: 08/15/20 00:57 Last Admin: 07/27/20 09:08 Dose: 17 gm Documented by: [id number] Admin: 07/22/20 09:24 Dose: 17 gm Documented by: [id number] Admin: 07/20/20 15:52 Dose: 17 gm Documented by: [id number] Tramadol HCl (Tramadol Hcl 50 Mg Tablet) 50 mg PO Q6H PRN PRN Reason: Pain Stop: 08/15/20 00:57 Last Admin: 08/04/20 12:09 Dose: 50 mg Documented by: [id number] Admin: 08/03/20 00:23 Dose: 50 mg Documented by: [id number] Admin: 07/30/20 21:56 Dose: 50 mg Documented by: [id number] Coding Level of Care Code 93187 [facility] Intl Hosp Care Lvl 2
[2020-08-06] MEDS: traMADol HCL 50 MG TABLET PO PRN (15:14)
--- NOTE | 2020-08-06 20:43 | Hospitalist Progress Note ---
Date of Service August 06, 2020 Assessment & Plan (1) Depressed: The patient is clearly depressed and going through adjustment/grieving process for her sickness. She has routinely told me she is ready to /feels like dying. - With patient consent, switched sertraline to Cymbalta as this has an effect on musculoskeletal pain as well as depression . This will not help in the short term, but hopefully give her more positive outlook in her recovery. Consulted psych. Appreciate input, agreeable to Cymbalta. (2) Pneumonia due to 2019 novel coronavirus: Completed remdesivir and received plasma on 07/20. - Stopped dexamethasone on 08/04; had received >10 days. - Continue Hycodan cough syrup 10 mL every 6 hours scheduled - Continue scheduled Tessalon Perles - Protonix 40mg daily for GI prophylaxis - Continue supplemental O2 to keep pulse ox greater than 92% -> Still high-flow today. Checked: * D-dimer -> improved * VBG -> Stable * Procalcitonin -> negative CXR on 08/01 showed slight pneumomediastinum and slight pneumothorax. Repeat on CXR 08/03 is stable. Discussed with pulmonary who feel this continues to be Covid and that supportive care is called. - Discussed with RNs who feel this could be atelectasis as the patient's depression is limiting her motivation. She won't sit in a chair, sit up, use the incentive spirometry, or participate in PT/OT. See above. (3) Elevated serum creatinine: Acute kidney injury-resolved after IV fluid hydration. Likely was pre- renal from diarrhea and dehydration prior to admission. - Resolved by 07/30 - Back up slightly on 08/04; feel it is due to poor PO intake. RN will push fluids today, and I may give a one-time IV bolus if we cannot get her to drink enough. (4) History of right hip hemiarthroplasty: Had right hip hemiarthroplasty performed on 06/28. - PT/OT consults placed-she is allowed to weight-bear as tolerated - Posterior hip precautions discussed with the nurse to include no flexion beyond 90 degrees of the hip and no adduction (5) Hypertension: Blood pressures were mildly low-normal but now are improved with holding lisinopril. - Lisinopril restarted on 07/28 - BP at goal. Will hold ACEi (6) Anemia: Did have recent hip surgery so likely some from acute blood loss anemia on top of chronic anemia. Iron studies show anemia of chronic disease but transferrin saturation is mildly low at 12%-mild iron deficiency. B12, folate, TSH all normal. - Started ferrous sulfate once daily on 07/19 - Hgb improved on 08/02 -> 11.6 - Gave 1 dose of IV iron on 08/02. Improved to 12.2 on 08/04. (7) DVT prophylaxis: - Lovenox 30 mg SQ twice daily which is the dose recommended by orthopedic surgery after recent hip surgery as well Admission and Anticipated Discharge Date Admission Date: July 16, 2020 Subjective 69 yo female reports no new symptoms. Review of Systems Review of Systems: All systems reviewed & are unremarkable except as noted in HPI & below Physical Exam Physical Exam: Constitutional: WD/WN, vitals as above well developed, well nourished and + overweight; no acute distress Neck: trachea midline, no thyromegaly Respiratory: no respiratory distress Auscultation: lungs clear to auscultation bilaterally Cardiovascular: RRR, no murmur, no edema Gastrointestinal (Abdomen): normal bowel sounds, soft, nontender, no hepatosplenomegaly Musculoskeletal: no cyanosis or clubbing, extremities motor strength 5/5 Skin: no rashes, warm and dry Neurologic: patellar DTR's 2+ bilat, sensation intact and PERRL, EOMI, accommodation nl, no face palsy, no dysarthria Psychiatric: A+Ox3, euthymic affect Lymphatic: no cervical or axillary lymphadenopathy Results & Data Results & Data ([facility]) Vital Signs (Past 12 Hours) Vital Signs Temp Pulse Pulse Pulse Resp BP BP 08/06/20 19:34 36.7 C 98 H 18 103/78 08/06/20 16:29 36.6 C 105 H 18 104/74 08/06/20 16:28 86 08/06/20 11:23 36.6 C 105 H 16 90/78 L Pulse Ox 08/06/20 19:34 99 08/06/20 16:29 99 08/06/20 16:28 08/06/20 11:23 100 PG Care Time/CCT Total # of Minutes Spent Total Time Spent with Patient: Total time spent is greater than 50% in coordination of care (as documented) at patient's floor/unit and/or counseling patient: Coding Level of Care Code 11522 Subseq Hosp Care Lvl 2 Diagnoses Depressed F32.9 Pneumonia due to 2019 novel coronavirus U07.1; J12.89 Elevated serum creatinine R79.89 History of right hip hemiarthroplasty Z96.641 Hypertension I10 Anemia D64.9 DVT prophylaxis Z29.9 Time Spent (min) 25
[2020-08-07 06:19] LABS: Hematocrit (blood only) 30.5 % (37-47); Hemoglobin 9.8 g/dL (12.0-16.0); Mean Corpuscular Hgb Conc 32.1 g/dL (32-36); Mean Corpuscular Volume 96.5 fL (80-100); Mean Platelet Volume 10.3 fL (7.4-10.4); Platelet Count 189 K/uL (130-400); RDW Coefficient of Variation 16.7 % (11.5-14.5); RDW Standard Deviation 57.5 fL (36.4-46.3); Red Blood Count 3.16 M/uL (4.2-5.4); White Blood Count 9.54 K/uL (4.8-10.8)
[2020-08-07 06:55] LABS: BUN Creatinine Ratio 65.6 (10-20); Calcium 8.7 mg/dl (8.5-10.1); Creatinine Clr Calc Pharmacy 48.7 ml/min; Est GFR (African American) 81.6; Est GFR (Non-African American) 70.4; Potassium 3.9 mmol/L (3.5-5.1)
[2020-08-07] MEDS: DULoxetine HCL 30 MG CAP PO SCH (09:20)
[2020-08-07] MEDS: FERROUS SULFATE 325 MG TAB PO SCH (09:21)
[2020-08-07] MEDS: MULTIVITAMIN TAB PO SCH (09:21)
[2020-08-07] MEDS: BENZONATATE 100 MG CAPSULE PO SCH ×3 (09:21→20:17)
[2020-08-07] MEDS: ENOXAPARIN INJ 30 MG/0.3 ML SYR SQ SCH ×2 (09:22→20:36)
[2020-08-07] MEDS: LACTATED RINGER'S 1,000 ML IV SCH ×2 (09:30→21:31)
--- NOTE | 2020-08-07 21:49 | Hospitalist Progress Note ---
Date of Service August 07, 2020 Assessment & Plan (1) Depressed: The patient is clearly depressed and going through adjustment/grieving process for her sickness. She has routinely told me she is ready to /feels like dying. - With patient consent, switched sertraline to Cymbalta as this has an effect on musculoskeletal pain as well as depression . This will not help in the short term, but hopefully give her more positive outlook in her recovery. Consulted psych. Appreciate input, agreeable to Cymbalta. Patient appears to be improving. (2) Pneumonia due to 2019 novel coronavirus: Completed remdesivir and received plasma on 07/20. - Stopped dexamethasone on 08/04; had received >10 days. - Continue Hycodan cough syrup 10 mL every 6 hours scheduled - Continue scheduled Tessalon Perles - Protonix 40mg daily for GI prophylaxis - Continue supplemental O2 to keep pulse ox greater than 92% -> Still high-flow today. Checked: * D-dimer -> improved * VBG -> Stable * Procalcitonin -> negative CXR on 08/01 showed slight pneumomediastinum and slight pneumothorax. Repeat on CXR 08/03 is stable. Discussed with pulmonary who feel this continues to be Covid and that supportive care is called. - Discussed with RNs who feel this could be atelectasis as the patient's depression is limiting her motivation. She won't sit in a chair, sit up, use the incentive spirometry, or participate in PT/OT. See above. (3) Elevated serum creatinine: Acute kidney injury-resolved after IV fluid hydration. Likely was pre- renal from diarrhea and dehydration prior to admission. - Resolved by 07/30 - Back up slightly on 08/04; feel it is due to poor PO intake. RN will push fluids today, and I may give a one-time IV bolus if we cannot get her to drink enough. (4) History of right hip hemiarthroplasty: Had right hip hemiarthroplasty performed on 06/28. - PT/OT consults placed-she is allowed to weight-bear as tolerated - Posterior hip precautions discussed with the nurse to include no flexion beyond 90 degrees of the hip and no adduction (5) Hypertension: Blood pressures were mildly low-normal but now are improved with holding lisinopril. - Lisinopril restarted on 07/28 - BP at goal. Will hold ACEi (6) Anemia: Did have recent hip surgery so likely some from acute blood loss anemia on top of chronic anemia. Iron studies show anemia of chronic disease but transferrin saturation is mildly low at 12%-mild iron deficiency. B12, folate, TSH all normal. - Started ferrous sulfate once daily on 07/19 - Hgb improved on 08/02 -> 11.6 - Gave 1 dose of IV iron on 08/02. Improved to 12.2 on 08/04. (7) DVT prophylaxis: - Lovenox 30 mg SQ twice daily which is the dose recommended by orthopedic surgery after recent hip surgery as well Admission and Anticipated Discharge Date Admission Date: July 16, 2020 Subjective Patient reports doing well. She denies any new symptoms. Review of Systems Review of Systems: All systems reviewed & are unremarkable except as noted in HPI & below Physical Exam Physical Exam: Constitutional: Eyes are open, more engaging in conversation WD/WN, vitals as above well developed, well nourished and + overweight; no acute distress Neck: trachea midline, no thyromegaly Respiratory: no respiratory distress Auscultation: lungs clear to auscultation bilaterally Cardiovascular: RRR, no murmur, no edema Gastrointestinal (Abdomen): normal bowel sounds, soft, nontender, no hepatosplenomegaly Musculoskeletal: no cyanosis or clubbing, extremities motor strength 5/5 Skin: no rashes, warm and dry Neurologic: patellar DTR's 2+ bilat, sensation intact and PERRL, EOMI, accommodation nl, no face palsy, no dysarthria Psychiatric: A+Ox3, euthymic affect Lymphatic: no cervical or axillary lymphadenopathy Results & Data Results & Data ([facility]) Vital Signs (Past 12 Hours) Vital Signs Temp Pulse Pulse Resp BP BP Pulse Ox 08/07/20 19:05 37 C 93 H 20 121/81 92 08/07/20 15:38 37 C 99 H 18 120/82 92 08/07/20 15:15 95 H 08/07/20 11:18 37.0 C 70 18 93/65 L 96 PG Care Time/CCT Total # of Minutes Spent Total Time Spent with Patient: Total time spent is greater than 50% in coordination of care (as documented) at patient's floor/unit and/or counseling patient: Coding Level of Care Code 62464 Subseq Hosp Care Lvl 2 Diagnoses Depressed F32.9 Pneumonia due to 2019 novel coronavirus U07.1; J12.89 Elevated serum creatinine R79.89 History of right hip hemiarthroplasty Z96.641 Hypertension I10 Anemia D64.9 DVT prophylaxis Z29.9 Time Spent (min) 25
[2020-08-08] MEDS: DULoxetine HCL 30 MG CAP PO SCH (08:14)
[2020-08-08] MEDS: BENZONATATE 100 MG CAPSULE PO SCH ×3 (08:14→20:31)
[2020-08-08] MEDS: ENOXAPARIN INJ 30 MG/0.3 ML SYR SQ SCH ×2 (08:15→20:31)
[2020-08-08] MEDS: FERROUS SULFATE 325 MG TAB PO SCH (08:19)
[2020-08-08] MEDS: MULTIVITAMIN TAB PO SCH (08:19)
[2020-08-08 09:01] LABS: Hemoglobin 9.8 g/dL (12.0-16.0); Mean Corpuscular Hemoglobin 30.6 pg (25-34); Mean Corpuscular Hgb Conc 31.6 g/dL (32-36); Mean Corpuscular Volume 96.9 fL (80-100); Mean Platelet Volume 10.2 fL (7.4-10.4); Platelet Count 197 K/uL (130-400); RDW Coefficient of Variation 16.7 % (11.5-14.5); RDW Standard Deviation 58.1 fL (36.4-46.3); White Blood Count 8.94 K/uL (4.8-10.8)
[2020-08-08 09:23] LABS: BUN Creatinine Ratio 40.7 (10-20); Calcium 8.4 mg/dl (8.5-10.1); Creatinine Clr Calc Pharmacy 49.9 ml/min; Est GFR (Non-African American) 72.5; Potassium 4.2 mmol/L (3.5-5.1)
--- NOTE | 2020-08-08 09:44 | XRay Report ---
XR chest 1V portable CLINICAL HISTORY: hypoxia COMPARISON STUDY: 08/03/2020 FINDINGS: The cardiac and mediastinal contours remain stable. There is a left-sided A-Port catheter. There are diffuse bilateral pulmonary airspace opacities, similar to the prior study. There is an equ ivocal trace left apical pneumothorax.[ IMPRESSION: 1. No significant change from the preceding study 2. Extensive bilateral pulmonary airspace opacities 3. Equivocal trace left apical pneumothorax ACT 112: Negative or not required by law. Electronically signed by: Ihsan Caraballo M.D. 08/08/2020 9:43 AM
[2020-08-08] MEDS: LACTATED RINGER'S 1,000 ML IV SCH (10:18)
--- NOTE | 2020-08-08 22:23 | Hospitalist Progress Note ---
Date of Service August 08, 2020 Assessment & Plan (1) Depressed: The patient is clearly depressed and going through adjustment/grieving process for her sickness. She has routinely told me she is ready to /feels like dying. - With patient consent, switched sertraline to Cymbalta as this has an effect on musculoskeletal pain as well as depression . This will not help in the short term, but hopefully give her more positive outlook in her recovery. Consulted psych. Appreciate input, agreeable to Cymbalta. Patient appears to be improving. (2) Pneumonia due to 2019 novel coronavirus: Completed remdesivir and received plasma on 07/20. - Stopped dexamethasone on 08/04; had received >10 days. - Continue Hycodan cough syrup 10 mL every 6 hours scheduled - Continue scheduled Tessalon Perles - Protonix 40mg daily for GI prophylaxis - Continue supplemental O2 to keep pulse ox greater than 92% -> Still high-flow today. Checked: * D-dimer -> improved * VBG -> Stable * Procalcitonin -> negative CXR on 08/01 showed slight pneumomediastinum and slight pneumothorax. Repeat on CXR 08/03 is stable. Discussed with pulmonary who feel this continues to be Covid and that supportive care is called. - Discussed with RNs who feel this could be atelectasis as the patient's depression is limiting her motivation. She won't sit in a chair, sit up, use the incentive spirometry, or participate in PT/OT. See above. She continues to require nasal cannula. Her oxygen requirements have been gradually improving. (3) Elevated serum creatinine: Acute kidney injury-resolved after IV fluid hydration. Likely was pre-re nal from diarrhea and dehydration prior to admission. - Resolved by 07/30 and again on 08/07. -will stop IVF. (4) History of right hip hemiarthroplasty: Had right hip hemiarthroplasty performed on 06/28. - PT/OT consults placed-she is allowed to weight-bear as tolerated - Posterior hip precautions discussed with the nurse to include no flexion beyond 90 degrees of the hip and no adduction (5) Hypertension: Blood pressures were mildly low-normal but now are improved with holding lisinopril. - Lisinopril restarted on 07/28 - BP at goal. Will hold ACEi (6) Anemia: Did have recent hip surgery so likely some from acute blood loss anemia on top of chronic anemia. Iron studies show anemia of chronic disease but transferrin saturation is mildly low at 12%-mild iron deficiency. B12, folate, TSH all normal. - Started ferrous sulfate once daily on 07/19 - Hgb improved on 08/02 -> 11.6 - Gave 1 dose of IV iron on 08/02. Improved to 12.2 on 08/04. has been gradually getting lower each day. will monitor. (7) DVT prophylaxis: - Lovenox 30 mg SQ twice daily which is the dose recommended by orthopedic surgery after recent hip surgery as well Admission and Anticipated Discharge Date Admission Date: July 16, 2020 Subjective 69 yo reports feeling better. Denies any new complaints. (Note: actually broke a smile when I walked in) Review of Systems Review of Systems: All systems reviewed & are unremarkable except as noted in HPI & below Physical Exam Physical Exam: Constitutional: Eyes are open, more engaging in conversation WD/WN, vitals as above well developed, well nourished and + overweight; no acute distress Neck: trachea midline, no thyromegaly Respiratory: no respiratory distress Auscultation: lungs clear to auscultation bilaterally Cardiovascular: RRR, no murmur, no edema Gastrointestinal (Abdomen): normal bowel sounds, soft, nontender, no hepatosplenomegaly Musculoskeletal: no cyanosis or clubbing, extremities motor strength 5/5 Skin: no rashes, warm and dry Neurologic: patellar DTR's 2+ bilat, sensation intact and PERRL, EOMI, accommodation nl, no face palsy, no dysarthria Psychiatric: A+Ox3, euthymic affect Lymphatic: no cervical or axillary lymphadenopathy Results & Data Results & Data ([facility]) Vital Signs (Past 12 Hours) Vital Signs Temp Pulse Pulse Resp BP Pulse Ox 08/08/20 19:54 37.0 C 98 H 18 103/70 95 08/08/20 16:00 91 H 08/08/20 15:51 37.1 C 108 H 18 118/72 96 PG Care Time/CCT Total # of Minutes Spent Total Time Spent with Patient: Total time spent is greater than 50% in coordination of care (as documented) at patient's floor/unit and/or counseling patient: Coding Level of Care Code 56722 Subseq Hosp Care Lvl 2 Diagnoses Depressed F32.9 Pneumonia due to 2019 novel coronavirus U07.1; J12.89 Elevated serum creatinine R79.89 History of right hip hemiarthroplasty Z96.641 Hypertension I10 Anemia D64.9 DVT prophylaxis Z29.9 Time Spent (min) 25
[2020-08-09] MEDS: HEPARIN 100 UNIT/ML 5ML FLUSH FLUSH PRN (05:32)
[2020-08-09 06:00] LABS: Hematocrit (blood only) 26.1 % (37-47); Hemoglobin 8.2 g/dL (12.0-16.0); Mean Corpuscular Hemoglobin 30.7 pg (25-34); Mean Corpuscular Hgb Conc 31.4 g/dL (32-36); Mean Corpuscular Volume 97.8 fL (80-100); Mean Platelet Volume 10.2 fL (7.4-10.4); Platelet Count 166 K/uL (130-400); RDW Coefficient of Variation 16.9 % (11.5-14.5); RDW Standard Deviation 59.2 fL (36.4-46.3); Red Blood Count 2.67 M/uL (4.2-5.4); White Blood Count 6.12 K/uL (4.8-10.8)
[2020-08-09 06:25] LABS: BUN Creatinine Ratio 37.6 (10-20); Creatinine Clr Calc Pharmacy 64.7 ml/min; Est GFR (African American) 106.3; Est GFR (Non-African American) 91.7; Potassium 3.9 mmol/L (3.5-5.1)
[2020-08-09] MEDS: DULoxetine HCL 30 MG CAP PO SCH (07:38)
[2020-08-09] MEDS: FERROUS SULFATE 325 MG TAB PO SCH (07:39)
[2020-08-09] MEDS: MULTIVITAMIN TAB PO SCH (07:39)
[2020-08-09] MEDS: ENOXAPARIN INJ 30 MG/0.3 ML SYR SQ SCH ×2 (07:39→20:53)
[2020-08-09] MEDS: BENZONATATE 100 MG CAPSULE PO SCH ×3 (08:25→20:53)
--- NOTE | 2020-08-09 10:37 | CT Scan Report ---
CT SCAN OF THE CHEST WITHOUT IV CONTRAST CLINICAL HISTORY: Multifocal airspace consolidation. COMPARISON STUDY: Chest x-ray dated 08/08/2020. Chest CT scans dated 07/15/2020 and 07/05/2018. TECHNIQUE: CT scan of the thorax was performed from the thoracic inlet to the upper abdomen. Images are reviewed in the axial, sagittal, and coronal planes. IV contrast was not administered for this ex amination as per the referring clinician. A dose lowering technique was utilized adhering to the rani leonard of [place]. CT DOSE: 488.07 mGy.cm FINDINGS: Thyroid: Imaged portions of the thyroid gland are normal in size and attenuation. Thoracic aorta: The thoracic aorta is normal in caliber and demonstrates bovine variant arch anatomy. Heart: A left internal jugular central venous infusion port is in place. The heart is normal in size and without pericardial effusion. Lungs and pleural spaces: Evaluation of the lung parenchyma is degraded by motion artifact. There is extensive multifocal airspace consolidation seen throughout both lungs. Mild bronchiectasis is noted bilaterally. The trachea and central airways are clear. No pleural effusion is identified and no pneu mothorax is seen. Mediastinum: There is pneumomediastinum. There is no mediastinal lymphadenopathy. Pam: Not well assessed without IV contrast. Axillae: There is no axillary lymphadenopathy. Upper abdomen: There is a tiny hiatal hernia. A small calcified gallstone is seen in the gallbladder neck on image #221. Partially visualized upper abdominal viscera is otherwise within normal limits. Skeletal structures: The skeletal structures are osteopenic. Mild degenerative change and scoliosis a re noted in the thoracic spine. No lytic or blastic bony lesions are seen. IMPRESSION: 1. There is extensive multifocal airspace consolidation seen throughout both lungs. This has signific antly progressed as compared to 07/15/2020 examination. Radiographic follow-up to resolution is recom mended. 2. There is pneumomediastinum. 3. No pneumothorax or pleural effusion is identified. 4. Cholelithiasis. 5. Additional findings as above. ACT 112: Negative or not required by law. Electronically signed by: Mitch Taveras M.D. 08/09/2020 10:36 AM
--- NOTE | 2020-08-09 22:26 | Hospitalist Progress Note ---
Date of Service August 09, 2020 Assessment & Plan (1) Depressed: The patient was clearly depressed and going through adjustment/grieving process for her sickness. She has routinely told me she is ready to /feels like dying 3 days ago and to the previous hospitalaist. - With patient consent, switched sertraline to Cymbalta as this has an effect on musculoskeletal pain as well as depression . This will not help in the short term, but hopefully give her more positive outlook in her recovery. Consulted psych. Appreciate input, agreeable to Cymbalta. Patient appears to be improving as her illness is getting better. (2) Pneumonia due to 2019 novel coronavirus: Completed remdesivir and received plasma on 07/20. - Stopped dexamethasone on 08/04; had received >10 days. - Continue Hycodan cough syrup 10 mL every 6 hours scheduled - Continue scheduled Tessalon Perles - Protonix 40mg daily for GI prophylaxis - Continue supplemental O2 to keep pulse ox greater than 92% -> Still high-flow today. Checked: * D-dimer -> improved * VBG -> Stable * Procalcitonin -> negative CXR on 08/01 showed slight pneumomediastinum and slight pneumothorax. Repeat on CXR 08/03 is stable. Discussed with pulmonary who feel this continues to be Covid and that supportive care is called. - Discussed with RNs who feel this could be atelectasis as the patient's depression is limiting her motivation. She won't sit in a chair, sit up, use the incentive spirometry, or participate in PT/OT. See above. She continues to require nasal cannula. Her oxygen requirements have been gradually improving but stuck on 5 liters for past few days. will order flutter valve. (3) Elevated serum creatinine: Acute kidney injury-resolved after IV fluid hydration. Likely was pre- renal from diarrhea and dehydration prior to admission. - Resolved by 07/30 and again on 08/07. -will stop IVF. (4) History of right hip hemiarthroplasty: Had right hip hemiarthroplasty performed on 06/28. - PT/OT consults placed-she is allowed to weight-bear as tolerated - Posterior hip precautions discussed with the nurse to include no flexion beyond 90 degrees of the hip and no adduction (5) Hypertension: Blood pressures were mildly low-normal but now are improved with holding lisinopril. - Lisinopril restarted on 07/28 - BP at goal. Will hold ACEi (6) Anemia: Did have recent hip surgery so likely some from acute blood loss anemia on top of chronic anemia. Iron studies show anemia of chronic disease but transfe rrin saturation is mildly low at 12%-mild iron deficiency. B12, folate, TSH all normal. - Started ferrous sulfate once daily on 07/19 - Hgb improved on 08/02 -> 11.6 - Gave 1 dose of IV iron on 08/02. Improved to 12.2 on 08/04. has been gradually getting lower each day. will monitor. (7) DVT prophylaxis: - Lovenox 30 mg SQ twice daily which is the dose recommended by orthopedic surgery after recent hip surgery as well Admission and Anticipated Discharge Date Admission Date: July 16, 2020 Subjective Patient reports feeling well. No new complaints. Review of Systems Review of Systems: All systems reviewed & are unremarkable except as noted in HPI & below Physical Exam Physical Exam: Constitutional: Eyes are open, more engaging in conversation, smiles at moments WD/WN, vitals as above well developed, well nourished and + overweight; no acute distress Neck: trachea midline, no thyromegaly Respiratory: no respiratory distress Auscultation: lungs clear to auscultation bilaterally Cardiovascular: RRR, no murmur, no edema Gastrointestinal (Abdomen): normal bowel sounds, soft, nontender, no hepatosplenomegaly Musculoskeletal: no cyanosis or clubbing, extremities motor strength 5/5 Skin: no rashes, warm and dry Neurologic: patellar DTR's 2+ bilat, sensation intact and PERRL, EOMI, accommodation nl, no face palsy, no dysarthria Psychiatric: A+Ox3, euthymic affect Lymphatic: no cervical or axillary lymphadenopathy Results & Data Results & Data ([facility]) Vital Signs (Past 12 Hours) Vital Signs Temp Pulse Pulse Resp BP BP Pulse Ox 08/09/20 19:00 36.9 C 100 H 18 103/68 98 08/09/20 16:00 98 H 08/09/20 15:28 36.9 C 92 H 18 111/74 96 08/09/20 14:38 88 L 08/09/20 11:42 36.9 C 80 18 108/73 100 PG Care Time/CCT Total # of Minutes Spent Total Time Spent with Patient: Total time spent is greater than 50% in coordination of care (as documented) at patient's floor/unit and/or counseling patient: Coding Level of Care Code 05905 Subseq Hosp Care Lvl 3 Diagnoses Depressed F32.9 Pneumonia due to 2019 novel coronavirus U07.1; J12.89 Elevated serum creatinine R79.89 History of right hip hemiarthroplasty Z96.641 Hypertension I10 Anemia D64.9 DVT prophylaxis Z29.9 Time Spent (min) 35
[2020-08-10 07:40] LABS: Hematocrit (blood only) 26.8 % (37-47); Hemoglobin 8.6 g/dL (12.0-16.0); Mean Corpuscular Hemoglobin 31.4 pg (25-34); Mean Corpuscular Hgb Conc 32.1 g/dL (32-36); Mean Corpuscular Volume 97.8 fL (80-100); Mean Platelet Volume 9.4 fL (7.4-10.4); Platelet Count 164 K/uL (130-400); RDW Coefficient of Variation 16.9 % (11.5-14.5); RDW Standard Deviation 59.6 fL (36.4-46.3); Red Blood Count 2.74 M/uL (4.2-5.4); White Blood Count 5.85 K/uL (4.8-10.8)
[2020-08-10] MEDS: FERROUS SULFATE 325 MG TAB PO SCH (07:56)
[2020-08-10] MEDS: DULoxetine HCL 30 MG CAP PO SCH (07:57)
[2020-08-10] MEDS: MULTIVITAMIN TAB PO SCH (07:57)
[2020-08-10] MEDS: ENOXAPARIN INJ 30 MG/0.3 ML SYR SQ SCH ×2 (07:57→21:50)
[2020-08-10] MEDS: ERGOCALCIFEROL 50,000 UNITS 1250 MCG CAP PO SCH (07:57)
[2020-08-10] MEDS: BENZONATATE 100 MG CAPSULE PO SCH ×3 (07:59→21:56)
--- NOTE | 2020-08-10 16:16 | Hospitalist Progress Note ---
Date of Service August 10, 2020 Assessment & Plan (1) Pneumonia due to 2019 novel coronavirus: Completed remdesivir and received plasma on 07/20. - Stopped dexamethasone on 08/04; had received >10 days. - Continue Hycodan cough syrup 10 mL every 6 hours scheduled - Continue scheduled Tessalon Perles - Protonix 40mg daily for GI prophylaxis - Continue supplemental O2 to keep pulse ox greater than 92% -> Still high-flow today. Checked: * D-dimer -> improved * VBG -> Stable * Procalcitonin -> negative - By 08/10, down to 4-5L NC. She is much improved today. More strength. Out in a chair. (2) Depressed: The patient was clearly depressed and going through adjustment/grieving process for her sickness. She had routinely told me she is ready to /feels like dying. - With patient consent, started duloxetine both for depression and for chronic p ain. - By 08/10, she is markedly better. More positive affect. Positive spirit. Low pain complaints. (3) Elevated serum creatinine: Acute kidney injury-resolved after IV fluid hydration. Likely was pre- renal from diarrhea and dehydration prior to admission. - Resolved by 08/09 - Cr down to 0.64 - At baseline. (4) History of right hip hemiarthroplasty: Had right hip hemiarthroplasty performed on 06/28. - PT/OT consults placed-she is allowed to weight-bear as tolerated - Posterior hip precautions discussed with the nurse to include no flexion beyond 90 degrees of the hip and no adduction (5) Hypertension: Blood pressures were mildly low-normal but now are improved with holding lisinopril. - Lisinopril held at present. Normal BPs. (6) Anemia: Did have recent hip surgery so likely some from acute blood loss anemia on top of chronic anemia. Iron studies show anemia of chronic disease but transferrin saturation is mildly low at 12%-mild iron deficiency. B12, folate, TSH all normal. - Started ferrous sulfate once daily on 07/19 - Hgb improved on 08/02 -> 11.6 - Gave 1 dose of IV iron on 08/02. Stable hgb on 08/10. (7) DVT prophylaxis: - Lovenox 30 mg SQ twice daily which is the dose recommended by orthopedic surgery after recent hip surgery as well Admission and Anticipated Discharge Date Admission Date: July 16, 2020 Subjective No major issues today. Feeling better. Reports no fevers/chills, chest pain, shortness of breath, abdominal pain, nausea, or vomiting. Physical Exam Constitutional: WD/WN, vitals as above Eyes: EOM intact bilaterally; no conjunctival abnormality ENMT: external ear and nose normal, oropharynx normal Neck: trachea midline, no thyromegaly normal visual inspection Respiratory: normal respiratory effort, lungs clear to auscultation no labored breathing Cardiovascular: RRR, no murmur, no edema Gastrointestinal (Abdomen): Inspection/Auscultation: abdomen normal to inspection; abdomen not distended Musculoskeletal: no cyanosis or clubbing, extremities motor strength 5/5 Skin: no rashes, warm and dry Neurologic: moves all extremities and awake Psychiatric: Orientation: alert, oriented to person and cooperative Affect: no tearful affect Results & Data Results & Data ([facility]) Vital Signs (Past 12 Hours) Vital Signs Temp Pulse Pulse Resp BP Pulse Ox 08/10/20 15:08 36.8 C 88 18 113/76 97 08/10/20 11:27 88 L 08/10/20 07:32 36.6 C 78 18 116/79 98 08/10/20 07:30 68 PG Care Time/CCT Total # of Minutes Spent Total Time Spent with Patient: Total time spent is greater than 50% in coordination of care (as documented) at patient's floor/unit and/or counseling patient: Coding Level of Care Code 41205 Subseq Hosp Care Lvl 2 Diagnoses Pneumonia due to 2019 novel coronavirus U07.1; J12.89 Depressed F32.9 Elevated serum creatinine R79.89 History of right hip hemiarthroplasty Z96.641 Hypertension I10 Anemia D64.9 DVT prophylaxis Z29.9
[2020-08-10] MEDS: HEPARIN 100 UNIT/ML 5ML FLUSH FLUSH PRN (19:25)
[2020-08-11 06:17] LABS: Hematocrit (blood only) 26.9 % (37-47); Hemoglobin 8.5 g/dL (12.0-16.0); Mean Corpuscular Hgb Conc 31.6 g/dL (32-36); Mean Corpuscular Volume 98.2 fL (80-100); Mean Platelet Volume 9.9 fL (7.4-10.4); Platelet Count 194 K/uL (130-400); RDW Coefficient of Variation 17.1 % (11.5-14.5); Red Blood Count 2.74 M/uL (4.2-5.4); White Blood Count 5.78 K/uL (4.8-10.8)
[2020-08-11 07:10] LABS: BUN Creatinine Ratio 30.4 (10-20); Calcium 8.1 mg/dl (8.5-10.1); Creatinine Clr Calc Pharmacy 68.9 ml/min; Est GFR (African American) 108.5; Est GFR (Non-African American) 93.7; Magnesium 2.1 mg/dl (1.8-2.4); Potassium 3.6 mmol/L (3.5-5.1)
[2020-08-11] MEDS: MULTIVITAMIN TAB PO SCH (08:38)
[2020-08-11] MEDS: ENOXAPARIN INJ 30 MG/0.3 ML SYR SQ SCH (08:38)
[2020-08-11] MEDS: FERROUS SULFATE 325 MG TAB PO SCH (08:38)
[2020-08-11] MEDS: DULoxetine HCL 30 MG CAP PO SCH (08:38)
[2020-08-11] MEDS: BENZONATATE 100 MG CAPSULE PO SCH ×2 (08:42→15:30)
[2020-08-11] MEDS: HEPARIN 100 UNIT/ML 5ML FLUSH FLUSH PRN (09:09)
--- NOTE | 2020-08-11 14:07 | Discharge Summary ---
Date of Service August 11, 2020 Admission HPI Per Admitting Provider Xena Mckeon is a 69 year old woman with a past medical history significant for anal cancer currently in remission, HTN, and recently broken hip with replacement on the of this month who presents with five days of fever, body aches, fatigue and diarrhea. She has had continuing diarrhea and weakness and has had trouble even getting around her house to perform ADL's she has not felt short of breath but she has had a cough particularly with deep inspiration. She has been trying to coordinate care through home health but she has become too weak to continue to rehab her hip at home and she decided to come into the emergency department for further evaluation. In ED patient was found to by hypoxic on room air and is saturating well on 2 L O2 via nasal cannula now, COVID testing was positive, BUN and creatinine elevated, platelets slightly elevated D Dimer elevated to 2370, chest x ray and CTA chest showing extensive bilateral viral pneumonia, no evidence of PE. Was given 6 mg dexamethasone and tylenol in ED. Non smoker, very occasional glass of wine drinker, no drug use. Patient tells me she needs more time to think about this but for now would not want a breathing tube if her breathing were to deteriorate though she would want to have attempted CPR if she had a cardiac arrest. Principal Diagnosis Covid-19 pneumonia Discharge Exam Constitutional WD/WN, vitals as above Eyes EOM intact bilaterally; no conjunctival abnormality ENMT external ear and nose normal, oropharynx normal Neck trachea midline, no thyromegaly normal visual inspection Respiratory normal respiratory effort, lungs clear to auscultation no labored breathing Cardiovascular RRR, no murmur, no edema Gastrointestinal (Abdomen) Inspection/Auscultation: abdomen normal to inspection; abdomen not distended Musculoskeletal no cyanosis or clubbing, extremities motor strength 5/5 Skin no rashes, warm and dry Neurologic moves all extremities and awake Psychiatric Orientation: alert, oriented to person and cooperative Affect: no tearful affect Discharge Data Allergies Allergy/AdvReac Type Severity Reaction Status Date / Time No Known Allergies Allergy Verified 07/15/20 21:31 Consultations 07/15/20 22:55 ED Decision to Admit Stat 08/06/20 08:16 Consult Psychiatry Routine Ordered Studies 07/15/20 21:42 CT angio chest PE protocol Stat 08/09/20 08:41 CT chest diagnostic wo con Routine Hospital Course (1) Pneumonia due to 2019 novel coronavirus: Completed remdesivir and received plasma on 07/20. - Stopped dexamethasone on 08/04; had received >10 days. - Continue Hycodan cough syrup 10 mL every 6 hours scheduled - Continue scheduled Tessalon Perles - Protonix 40mg daily for GI prophylaxis - Continue supplemental O2 to keep pulse ox greater than 92% -> Still high-flow today. Checked: * D-dimer -> improved * VBG -> Stable * Procalcitonin -> negative - By 08/10, down to 4-5L NC. She is much improved today. More strength. Out in a chair. (2) Depressed: The patient was clearly depressed and going through adjustment/grieving process for her sickness. She had routinely told me she is ready to /feels like dying. - With patient consent, started duloxetine both for depression and for chronic pain. - By 08/10, she is markedly better. More positive affect. Positive spirit. Low pain complaints. - Continue duloxetine 30 mg PO daily; PCP can titrate. (3) Elevated serum creatinine: Acute kidney injury-resolved after IV fluid hydration. Likely was pre- renal from diarrhea and dehydration prior to admission. - Resolved by 08/09 - Cr down to 0.64 - At baseline. (4) History of right hip hemiarthroplasty: Had right hip hemiarthroplasty performed on 06/28. - PT/OT consults placed-she is allowed to weight-bear as tolerated - Posterior hip precautions discussed with the nurse to include no flexion beyond 90 degrees of the hip and no adduction (5) Hypertension: Blood pressures were mildly low-normal but now are improved with holding lisinopril. - Lisinopril held at present. Normal BPs. (6) Anemia: Did have recent hip surgery so likely some from acute blood loss anemia on top of chronic anemia. Iron studies show anemia of chronic disease but transferrin saturation is mildly low at 12%-mild iron deficiency. B12, folate, TSH all normal. - Started ferrous sulfate once daily on 07/19 - Hgb improved on 08/02 -> 11.6 - Gave 1 dose of IV iron on 08/02. Stable hgb on 08/10. (7) DVT prophylaxis: - Lovenox 30 mg SQ twice daily which is the dose recommended by orthopedic surgery after recent hip surgery as well Total Time Total Time Spent Total Time Spent (In Minutes): 35 Discharge Plan Discharge Items Patient Disposition: Transfer Inpatient Rehab Fac Reason For Visit: COVID 19 PNEUMONIA Discharge Diagnosis: Covid-19 pneumonia Activity: Resume your previous activity Non-emergency contact: Primary Care Provider Call non-emergency contact if: your symptoms worsen Follow-up/Referrals: Nathalie Rick CRNP [Primary Care Provider] - Diet: Regular Addtl Attending Provider Instructions: You were admitted with Covid-19 pneumonia. You received all of our treatments available. You needed a lot of oxygen while here, but are improving daily. You also had some issues with pain as well as depression in the hospital. We started duloxetine 30 mg PO QAM which has helped with both. Please continue this and have your PCP titrate (adjust) it as needed. We started a daily iron supplement for low hemoglobin, but you did not have any signs of bleeding. Finally, we stopped your lisinopril in the hospital. Due to your sickness and lower PO intake, I do not think you presently need it. It could be restarted as needed as you recover. Pending Studies at Discharge: No Stand-Alone Forms: My [facility] Skilled Items Patient informed of condition?: Yes DNR: No Discharge Level of Care: Acute rehab Communicable Disease: No Discharge Prognosis: Improving Lines: None Urinary Catheter: No Medications and DC Order Prescriptions: New ferrous sulfate 325 mg (65 mg iron) Tablet,Delayed Release (Dr/Ec) 325 mg PO QAM Qty: 1 RF: 0 duloxetine 30 mg Capsule,Delayed Release(Dr/Ec) 30 mg PO QAM Qty: 0 RF: 0 Continued multivitamin Tablet 1 tab PO QAM RF: 0 acetaminophen 500 mg tablet 1,000 mg PO Q8H PRN (Reason: Pain) RF: 0 ergocalciferol (vitamin D2) 1,250 mcg (50,000 unit) capsule 50,000 unit PO WK RF: 0 Changed tramadol 50 mg tablet 50 mg PO Q6H PRN (Reason: Pain) Qty: 0 RF: 0 Discontinued lisinopril 10 mg tablet 15 mg PO QAM RF: 0 enoxaparin 40 mg/0.4 mL syringe 40 mg subcut DAILY RF: 0 Discharge Orders: Discharge Order (Routine); Ordered 08/11/20 Ordered By: Jose Garcia Admission Data Admit Date/Time: 07/16/20 00:07 Attending Provider: Jose Garcia Admit Provider: Jan Cole Primary Care Provider: Nathalie Rick Other Providers: [facility] ; [facility] ; Lindsay Garcia Coding Level of Care Code D/C Day Management >30 mins Diagnoses Pneumonia due to 2019 novel coronavirus U07.1; J12.89 Depressed F32.9 Elevated serum creatinine R79.89 History of right hip hemiarthroplasty Z96.641 Hypertension I10 Anemia D64.9 DVT prophylaxis Z29.9
[2020-08-11 15:26] VITALS: BP 118/82; PULSE 94; TEMP 98.1; O2SAT 96
== END 2020-08-11 16:30 | DRG 177 ==
LOC: ED 20:00 → EDINP 07-16 00:07 → SUATTDRO 07-16 00:07 → 2S 07-16 00:19 → 2W 08-06 16:26